=== PATIENT | male | born 1960 | race Caucasian/White ===

== ENCOUNTER → 2022-09-10 12:01 | Outpatient (CLI) | payer MEDICARE, SELFPAY ==
[2022-09-10 18:44] LABS: Eosinophils # 0.1 K/mm3 (0.0-0.4); Eosinophils % 3.8 % (0.1-12.0); Hematocrit 41.4 % (42.0-52.0); Hemoglobin 13.4 g/dL (14.1-18.0); Lymphocytes # 0.7 K/mm3 (0.7-4.5); Lymphocytes % 21.9 % (10-50); Mean Corpuscular HGB Conc 32.4 g/dL (31.8-35.4); Mean Corpuscular Hemoglobin 25.2 pg (27.0-31.2); Mean Corpuscular Volume 77.8 fl (80-94); Mean Platelet Volume 10.7 fl (7.4-10.4); Monocytes # 0.3 K/mm3 (0.1-1.0); Monocytes % 10.2 % (1.7-9.3); Neutrophils # 2.1 K/mm3 (1.8-7.8); Platelet Count 126 K/mm3 (142-424); Red Blood Count 5.32 M/mm3 (4.60-6.20); Red Cell Distribution Width 15.7 % (11.5-17.5); White Blood Count 3.3 K/mm3 (4.8-10.8)
[2022-09-10 19:19] LABS: Erythrocyte Sedimentation Rate 10 mm/hr (0-20)
[2022-09-10 20:03] LABS: Alanine Aminotransferase 38 U/L (12-78); Albumin Level 4.2 g/dl (3.5-5.0); Albumin/Globulin Ratio 1.2 (1.1-1.8); Alkaline Phosphatase 153 U/L (38-126); Anion Gap 18.4 mEq/L (5-15); Aspartate Amino Transferase 54 U/L (17-59); Bilirubin,Total 0.9 mg/dl (0.2-1.3); Blood Urea Nitrogen 12 mg/dl (9-20); Calcium 9.4 mg/dl (8.4-10.2); Carbon Dioxide 29 mmol/L (22.0-30.0); Chloride 98 mmol/L (98-107); Estimated Glomerular Filt Rate 86 ml/min (>60); GFR (African American) 104 ML/MIN (>60); Globulin 3.6 g/dL (1.3-3.2); Glucose 154 mg/dl (74-100); Potassium 4.4 mmoL/L (3.5-5.1); Sodium 141 mmol/L (136-145); Total Protein,Serum 7.8 g/dl (6.3-8.2)
[2022-09-10 20:34] LABS: Thyroid Stimulating Hormone 1.22 uIU/mL (0.465-4.68)
== END ==
PROVIDERS: PCP Family Medicine; Visit Provider Family Medicine
DX: G35 Multiple sclerosis (principal); Z00.00 Encounter for general adult medical examination without abnormal findings; I25.10 Atherosclerotic heart disease of native coronary artery without angina pectoris; Z79.899 Other long term (current) drug therapy
CPT/HCPCS: 80053; 84443; 85025; 85651

== ENCOUNTER → 2022-10-17 23:12 | Outpatient (CLI) | payer MEDICARE, SELFPAY ==
[2022-10-17 18:54] LABS: Chol/HDL Ratio 4.2 (1-3.5); Cholesterol 177 mg/dl (140-200); HDL Cholesterol 42 mg/dl (40-60); Triglycerides 152 mg/dl (30-150); VLDL Cholesterol 30 mg/dL (0-40)
[2022-10-17 19:05] LABS: Direct LDL Cholesterol 94.15 mg/dL (100-129)
[2022-10-17 19:07] LABS: Hemoglobin A1C 6.7 % (4.0-6.0)
== END ==
PROVIDERS: PCP Family Medicine; Visit Provider Family Medicine
DX: I25.10 Atherosclerotic heart disease of native coronary artery without angina pectoris (principal); E11.9 Type 2 diabetes mellitus without complications
CPT/HCPCS: 80061; 83036

== ENCOUNTER → 2023-04-24 10:34 | Outpatient (CLI) | payer MEDICARE, SELFPAY ==
--- NOTE | 2023-04-24 10:35 | CT_ITS ---
FINAL REPORT TECHNIQUE: After the administration of oral and intravenous contrast, axial images were obtained through the abdomen and pelvis by computed tomography. The study was performed with techniques to keep radiation dose as low as reasonably achievable, (ALARA). Individual dose reduction techniques using automated exposure control or adjustment of mA and/or kV according to the patient's size were employed. CLINICAL HISTORY: abdominal pain FINDINGS: Abdomen: The lung bases are clear. The liver has a nodular peripheral margin consistent with cirrhosis. The liver parenchyma is homogeneous. The gallbladder is present. The spleen is enlarged measuring up to 17 cm in craniocaudal dimension. Formation of moderate varices is seen in the upper abdomen. The pancreas demonstrates scattered calcifications in the body of the pancreas. There is a lobular cystic lesion, apparently arising from the tail of the pancreas and contiguous with the splenic hilum. This measures 8.7 x 4.2 cm and is probably related to a pseudocyst. The adrenals and kidneys appear unremarkable. Pelvis: There is a moderate amount of retained stool throughout the colon. The appendix is not visualized. The urinary bladder is unremarkable. There are few small lymph nodes throughout the retroperitoneal and celiac regions which are nonspecific. IMPRESSION: 1. 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 2. Moderate constipation. 3. Changes of chronic pancreatitis with a probable 8.7 cm pseudocyst in the tail of the pancreas. 4. No acute inflammation. Reviewed, Interpreted and Dictated by Naun Biswas MD Transcribed by Vicki Dickinson Authenticated and [facility]
[2023-04-24 11:12] LABS: Blood Urea Nitrogen 14 mg/dl (9-20); Estimated Glomerular Filt Rate 56 ml/min (>60); GFR (African American) 68 ML/MIN (>60)
[2023-04-24] MEDS: SODIUM CHLORIDE 0.9% 10ML SYR (RAD ONLY) 10 ML IV (11:40)
[2023-04-24] MEDS: IOPAMIDOL-370 (76%);100ML BOTTLE 75 ML IV (11:40)
[2023-04-25 11:19] LABS: HBsAg Screen Positive (Negative); HCV Ab Non Reactive (Non Reactive); Hep A Ab, IGM Negative (Negative); Hep B Core Ab, IgM Negative (Negative)
== END ==
LOC: RAD 10:35
PROVIDERS: PCP Family Medicine; Visit Provider Surgery
DX: R10.9 Unspecified abdominal pain (principal)
CPT/HCPCS: 36415; 74177; 80074; 82565; 84520; Q9967

== ENCOUNTER 2023-10-01 11:07 | Outpatient (CLI) | payer MEDICARE, SELFPAY ==
[2023-10-01 17:47] LABS: Coronavirus 19, PCR Not Detected (NotDetected); Influenza A, PCR Not Detected (NotDetected); Influenza B, PCR Not Detected (NotDetected)
== END 2023-10-01 23:59 | disposition home or self-care (01) ==
LOC: LAB.DROPOF 10-02 11:09
PROVIDERS: PCP Nurse Practitioner; Visit Provider Nurse Practitioner
DX: J06.9 Acute upper respiratory infection, unspecified (principal); F17.210 Nicotine dependence, cigarettes, uncomplicated
CPT/HCPCS: 87636

== ENCOUNTER 2024-04-12 19:11 | Outpatient (CLI) | payer MEDICARE, SELFPAY ==
[2024-04-12 19:48] LABS: Basophils % 1.1 % (0.1-2.0); Eosinophils # 0.2 K/mm3 (0.0-0.4); Eosinophils % 4.3 % (0.1-12.0); Hematocrit 41.5 % (42.0-52.0); Hemoglobin 13.9 g/dL (14.1-18.0); Lymphocytes % 29.6 % (10-50); Mean Corpuscular HGB Conc 33.6 g/dL (31.8-35.4); Mean Corpuscular Hemoglobin 27.4 pg (27.0-31.2); Mean Corpuscular Volume 81.6 fl (80-94); Mean Platelet Volume 10.5 fl (7.4-10.4); Monocytes # 0.4 K/mm3 (0.1-1.0); Monocytes % 10.5 % (1.7-9.3); Neutrophils # 1.9 K/mm3 (1.8-7.8); Neutrophils % 54.5 % (37.0-80.0); Platelet Count 119 K/mm3 (142-424); Red Blood Count 5.09 M/mm3 (4.60-6.20); White Blood Count 3.5 K/mm3 (4.8-10.8)
[2024-04-12 20:03] LABS: Chloride 104 mmol/L (98-107)
[2024-04-12 20:04] LABS: Albumin Level 4.1 g/dl (3.5-5.0); Potassium 4.4 mmoL/L (3.5-5.1); Sodium 132 mmol/L (136-145)
[2024-04-12 20:06] LABS: Blood Urea Nitrogen 14 mg/dl (9-20); Estimated Glomerular Filt Rate 76 ml/min (>60); GFR (African American) 92 ML/MIN (>60)
[2024-04-12 20:07] LABS: Alanine Aminotransferase 41 U/L (12-78); Albumin/Globulin Ratio 1.3 (1.1-1.8); Alkaline Phosphatase 140 U/L (38-126); Anion Gap 5.4 mEq/L (5-15); Aspartate Amino Transferase 55 U/L (17-59); Bilirubin,Total 0.7 mg/dl (0.2-1.3); Calcium 9.3 mg/dl (8.4-10.2); Carbon Dioxide 27 mmol/L (22.0-30.0); Chol/HDL Ratio 4.6 (1-3.5); Cholesterol 156 mg/dl (140-200); Globulin 3.2 g/dL (1.3-3.2); Glucose 127 mg/dl (74-100); HDL Cholesterol 34 mg/dl (40-60); Total Protein,Serum 7.3 g/dl (6.3-8.2); Triglycerides 171 mg/dl (30-150); VLDL Cholesterol 34 mg/dL (0-40)
[2024-04-12 20:09] LABS: Microalbumin/Creatinine Ratio 3.9
[2024-04-12 20:19] LABS: Creatinine,Urine Random 302 mg/dL (Not Estab.)
[2024-04-12 20:40] LABS: Direct LDL Cholesterol 85.24 mg/dL (100-129)
[2024-04-12 21:01] LABS: Prostate Specific Ag Screen 1.4 ng/ml (0.0-4.0)
[2024-04-13 11:16] LABS: HIV Combo NEGATIVE (Negative)
== END 2024-04-12 23:59 | disposition home or self-care (01) ==
LOC: LAB.DROPOF 19:12
PROVIDERS: PCP Family Medicine; Visit Provider Family Medicine
DX: R73.09 Other abnormal glucose (principal); I25.2 Old myocardial infarction; I49.8 Other specified cardiac arrhythmias; Z12.5 Encounter for screening for malignant neoplasm of prostate
CPT/HCPCS: 80053; 80061; 82043; 82570; 85025; 87389; G0103

== ENCOUNTER 2024-05-21 13:12 | Emergency (ER) | payer MEDICARE, SELFPAY ==
[2024-05-21] VITALS (12 sets, daily range): BP systolic 101–198; BP diastolic 56–92; PULSE 56–68; RESP 13–16; TEMP 36.7–37.1; O2SAT 92–100; BMI 29.7
--- NOTE | 2024-05-21 12:59 | ED_ITS ---
<Statement entered by Digna Borden MD - 05/21/24 15:52> I was consulted by the BRIGHT, and we discussed the complexity of problems being addressed. I approved the treatment and management plan for this patient's care in the emergency department, thus performing a substantive portion of the medical decision making. Digna Borden MD Discharge Plan Disposition Patient Disposition: Home, Self-Care Condition: Good Prescriptions Prescriptions: New pantoprazole [Protonix] 40 mg tablet,delayed release (DR/EC) 40 mg PO DAILY Qty: 30 0RF No Action doxycycline hyclate 100 mg tablet 100 mg PO BID Qty: 20 0RF nystatin 100,000 unit/gram cream 1 applic topical BID Qty: 30 0RF glatiramer [Glatopa] 40 mg/mL syringe 20 mg SQ .COMPLEX Rx Instructions: 20 mg subcutaneously Three times WEEKLY; gabapentin [Neurontin] 600 mg tablet 600 mg PO TID Qty: 90 0RF aspirin 81 mg tablet,delayed release (DR/EC) 81 mg PO DAILY Qty: 100 3RF metoprolol succinate 50 mg tablet extended release 24 hr See Rx Instructions .ROUTE .COMPLEX Qty: 90 3RF Dose Instruction: TAKE 1 TABLET EVERY DAY Rx Instructions: TAKE 1 TABLET EVERY DAY tizanidine 2 mg tablet See Rx Instructions .ROUTE .COMPLEX Qty: 60 11RF Dose Instruction: TAKE 1 TABLET TWICE DAILY NEEDED FOR MUSCLE SPASTICITY Rx Instructions: TAKE 1 TABLET TWICE DAILY NEEDED FOR MUSCLE SPASTICITY pantoprazole 40 mg tablet,delayed release (DR/EC) See Rx Instructions .ROUTE .COMPLEX Qty: 60 10RF Dose Instruction: TAKE 1 TABLET EVERY DAY Rx Instructions: TAKE 1 TABLET EVERY DAY nitroglycerin 0.4 mg tablet, sublingual See Rx Instructions .ROUTE .COMPLEX Qty: 100 10RF Dose Instruction: PLACE 1 TABLET UNDER THE TONGUE EVERY 5 MINUTES NEEDED FOR CHEST PAIN. DO NOT EXCEED 3 DOSES PER EPISODE Rx Instructions: PLACE 1 TABLET UNDER THE TONGUE EVERY 5 MINUTES NEEDED FOR CHEST PAIN. DO NOT EXCEED 3 DOSES PER EPISODE Referrals Follow up/Referrals: John Hernandes II, MD [Staff Physician] - See instructions ProviderChencho MD [Referring] - See instructions Sean Rivera MD [Staff Physician] - See instructions Activity Restrictions/Add. Instructions Additional Instructions/Restrictions: Follow-up with your PCP if you have new worsening or unchanged signs or symptoms. I referred you to both cardiology and gastroenterology for further workup. I have sent a medication in to help with your stomach issues please take daily. Return to ER for any worsening signs or symptoms as needed. Clinical Impressions Clinical Impression: Chest pain Print Language Print Language: Czech Discharge ED Provider: Shelly Singleton HPI <MEGHNA Hamilton - Last Filed: 05/21/24 17:24> General Chief Complaint: Chest Pain Stated Complaint: CHEST PAIN Time Seen by Provider: 05/21/24 13:18 History of Present Illness HPI narrative: Patient presents for evaluation of chest pain. Patient reports that his chest pain began approximately around noon today. He does have a past medical history of cardiovascular disease status post stents status post ME but has not seen a filling operator in a very long time. He did have nitroglycerin at home and he took 3 of them prior to EMS arrival without relief. Patient states that it is in the center of his chest that does not radiate there is no aggravating or relieving factors. He denies diaphoresis headache dysphagia shortness of breath fever chills hemoptysis hematochezia melena nausea vomiting diarrhea. Patient does not drink, does not take [id number] NSAIDs routinely. He has not been recently ill or had sick contacts Related Data Home Medications ?Medication ?Instructions ?Recorded ?Confirmed glatiramer 40 mg/mL subcutaneous 20 mg SQ .COMPLEX MS 04/10/22 05/12/24 syringe (Glatopa) Previous Rx's ?Medication ?Instructions ?Recorded gabapentin 600 mg tablet 600 mg PO TID #90 tabs 05/15/22 (Neurontin) aspirin 81 mg tablet,delayed 81 mg PO DAILY #100 tabs 08/28/23 release metoprolol succinate 50 mg See Rx Instructions .Route 12/30/23 tablet,extended release 24 hr .COMPLEX #90 tabs tizanidine 2 mg tablet See Rx Instructions .Route 01/08/24 .COMPLEX #60 tabs pantoprazole 40 mg tablet,delayed See Rx Instructions .Route 02/26/24 release .COMPLEX #60 tabs nitroglycerin 0.4 mg sublingual See Rx Instructions .Route 03/22/24 tablet .COMPLEX #100 tabs doxycycline hyclate 100 mg tablet 100 mg PO BID #20 tabs 05/12/24 nystatin 100,000 unit/gram topical 1 applic topical BID #30 grams 05/12/24 cream pantoprazole 40 mg tablet,delayed 40 mg PO DAILY #30 tabs 05/21/24 release (Protonix) Allergies Allergy/AdvReac Type Severity Reaction Status Date / Time No Known Allergies Allergy Verified 05/12/24 13:18 PFSH <MEGHNA Hamilton - Last Filed: 05/21/24 17:24> PFS Disclaimer: The information contained in this section may have been updated after the patient was seen, as this information can be updated by other users. Medical History Ventricular bigeminy Confirmed on EKG Carotid stenosis, bilateral Umbilical hernia Cellulitis of hand, right Nicotine dependence, cigarettes, uncomplicated Myocardial infarct, old CAD (coronary artery disease) Macular degeneration of left eye Multiple sclerosis Surgical History History of colonoscopy History of percutaneous coronary intervention History of appendectomy Family History Other Cancer Heart attack Social History Smoking Status: Former smoker alcohol intake: former substance use type: denies use current occupational status: disabled Travel in the last 8 weeks: None <MEGHNA Hamilton - Last Filed: 05/21/24 17:24> ROS Obtained: Yes Systems reviewed as appropriate & no additional complaints except as documented Physical Exam <MEGHNA Hamilton - Last Filed: 05/21/24 17:24> General General appearance: alert and in no apparent distress Respiratory Respiratory exam: Present normal lung sounds bilaterally Cardiovascular Cardiovascular exam: Present regular rate Neurological Exam Neurological exam: Present alert and oriented X3 HEART Score <MEGHNA Hamilton - Last Filed: 05/21/24 17:24> HEART Score HEART Score assessment performed?: Yes History (anamnesis): Slightly suspicious ECG: Non-specific disturbance Age: 45-65 years Risk factors: Atherosclerosis history Troponin: </= normal limit HEART Score: 4 <Digna Borden MD - Last Filed: 05/21/24 15:53> HEART Score HEART Score: 4 <Shelly Singleton DO - Last Filed: 05/21/24 22:59> HEART Score HEART Score: 4 Critical Care <Digna Borden MD - Last Filed: 05/21/24 15:53> Critical Care Time Critical Care Time: No Medical Decision Making <MEGHNA Hamilton - Last Filed: 05/21/24 17:24> Medical Records Medical records reviewed: Yes I reviewed the patient's medical records. [place] Inquiry Pt receiving controlled substance: No Vital Signs Vital Signs: 05/21/24 13:16 05/21/24 13:19 05/21/24 13:26 Temperature 98.7 F Temperature Source Oral Pulse Rate 64 Pulse Rate [Right Radial] 64 Respiratory Rate 13 14 Blood Pressure 128/92 H Blood Pressure [Right Arm] 128/92 H Blood Pressure Mean Blood Pressure Mean [Right Arm] 104 Blood Pressure Source [Right Arm] Automatic Cuff 02 Sat by Pulse Oximetry 96 Oxygen Delivery Method Room Air 05/21/24 13:31 05/21/24 14:01 05/21/24 14:30 Temperature Temperature Source Pulse Rate 58 L 66 Pulse Rate [Right Radial] Respiratory Rate 15 Blood Pressure 131/69 118/73 134/85 Blood Pressure [Right Arm] Blood Pressure Mean Blood Pressure Mean [Right Arm] Blood Pressure Source [Right Arm] 02 Sat by Pulse Oximetry 100 99 Oxygen Delivery Method Room Air 05/21/24 14:59 05/21/24 15:12 05/21/24 16:01 Temperature Temperature Source Pulse Rate 60 63 63 Pulse Rate [Right Radial] Respiratory Rate Blood Pressure 131/66 126/70 114/62 Blood Pressure [Right Arm] Blood Pressure Mean 79 Blood Pressure Mean [Right Arm] Blood Pressure Source [Right Arm] 02 Sat by Pulse Oximetry 94 L 92 L 99 Oxygen Delivery Method Room Air Room Air 05/21/24 16:31 05/21/24 17:29 05/21/24 17:32 Temperature 98.2 F 98.0 F Temperature Source Pulse Rate 65 68 56 L Pulse Rate [Right Radial] Respiratory Rate 16 16 Blood Pressure 101/63 L 198/56 H 119/68 Blood Pressure [Right Arm] Blood Pressure Mean 75 Blood Pressure Mean [Right Arm] Blood Pressure Source [Right Arm] 02 Sat by Pulse Oximetry 97 Oxygen Delivery Method Room Air Lab Data Lab results reviewed: Yes I reviewed the patient's lab results. Labs: Lab Results 05/21/24 13:15: WBC 3.6 L, RBC 4.81, Hgb 12.8 L, Hct 40.3 L, MCV 83.8, MCH 26.6 L, MCHC 31.8, RDW 15.6, Plt Count 114 L, MPV 12.0 H, Neut % (Auto) 61.1, Lymph % (Auto) 20.6, [place] % (Auto) 12.5 H, Eos % (Auto) 4.4, Baso % (Auto) 0.8, Neut # (Auto) 2.2, Lymph # (Auto) 0.7, [place] # (Auto) 0.5, Eos # (Auto) 0.2, Baso # (Auto) 0.0, PT 12.4 H, INR 1.15 H, D-Dimer 0.38, Sodium 139, Potassium 4.3, Chloride 104, Carbon Dioxide 27, Anion Gap 12.3, BUN 12, Creatinine 1.10, Estimated Creat Clear 85, Estimated GFR 68, Est GFR ( Amer) 82, Glucose 105 H, Calcium 8.9, Magnesium 1.4 L, Total Bilirubin 0.8, AST 45, ALT 29, A lkaline Phosphatase 150 H, Troponin I < 0.01, NT-Pro-B Natriuret Pep < 20.0, Total Protein 6.8, Albumin 3.6, Globulin 3.2, Albumin/Globulin Ratio 1.1, Lipase 129, Procalcitonin 0.058 05/21/24 13:24: SARS-CoV-2 (PCR) Not detected, Influenza A Untype (PCR) Not detected, Influenza Type B (PCR) Not detected 05/21/24 13:30: Urine Color Shelly, Urine Appearance Clear, Urine pH 6.0, Ur Specific [place] >= 1.030, Urine Protein Negative, Urine Glucose (UA) Trace, Urine Ketones Negative, Urine Blood Negative, Urine Nitrate Negative, Urine Bilirubin 1+ A, Urine Urobilinogen 0.2, Ur Leukocyte Esterase Negative, Urine RBC Occasional, Urine WBC 3-5, Ur Squamous Epith Cells Occasional, Urine Bacteria 1+, Urine Mucus 2+ 05/21/24 16:12: Troponin I < 0.01 05/21/24 13:15 05/21/24 13:15 Response Orders (Tests/Meds): ED MEDICATIONS Discontinued Medications Generic Name Dose Route Start Last Admin Trade Name Freq PRN Reason Stop Dose Admin Acetaminophen 1,000 mg 05/21/24 13:18 05/21/24 13:33 Acetaminophen 1,000mg/100ml Vial IV 05/21/24 13:19 1,000 mg ONCE ONE Administration Belladonna Alkaloids 60 ml 05/21/24 13:18 05/21/24 13:33 Belladonna Alkaloids 60 Ml Ml PO 05/21/24 13:19 60 ml ONCE ONE Administration Ketorolac Tromethamine 15 mg 05/21/24 13:18 05/21/24 13:32 Ketorolac 30mg/Ml Vial IV 05/21/24 13:19 15 mg ONCE ONE Administration Pantoprazole Sodium 40 mg 05/21/24 14:23 05/21/24 14:30 Pantoprazole 40mg Tablet PO 05/21/24 14:24 40 mg ONCE ONE Administration ORDERS Category Date Time Status Chest XR 2 view (NOT portable) [XR chest 2V] Stat Exams 05/21/24 13:18 Completed BNP [NT Pro Brain Natriuretic Pep.] Stat Lab 05/21/24 13:15 Completed CBC w/Auto Diff [Complete Blood Count Auto Diff] Stat Lab 05/21/24 13:15 Completed CMP [Comprehensive Metabolic Panel] Stat Lab 05/21/24 13:15 Completed D-Dimer Stat Lab 05/21/24 13:15 Completed INR [Prothrombin Time INR] Stat Lab 05/21/24 13:15 Completed Lipase Stat Lab 05/21/24 13:15 Completed Magnesium Stat Lab 05/21/24 13:15 Completed Procalcitonin Stat Lab 05/21/24 13:15 Completed Rapid PCR Covid and Flu A/B Stat Lab 05/21/24 13:24 Completed Trop I [Troponin I] Stat Lab 05/21/24 13:15 Completed Troponin I Q3H Lab 05/21/24 16:12 Completed UA [Urinalysis and Microscopic] Stat Lab 05/21/24 13:30 Completed MDM Narrative Medical Decision Narrative: In summary patient is a 64-year-old male who presents to the emergency department for evaluation of chest pain. Patient is hemodynamically stable with a blood pressure 128/92 heart rate of 70 with normal sinus rhythm on the bedside monitor breathing 13 times a minute satting at 95% on room air upon arrival, afebrile. Physical exam reveals normal breath sounds with no adventitious sounds, no increased work of breathing, normal heart sounds without murmurs gallops rubs or thrills, no reproducible chest pain on palpation, abdomen is soft with tenderness at the umbilicus at his known umbilical hernia but there is no palpable bowel loop currently, no rebound or guarding or rigidity normal bowel sounds.. Differential diagnosis includes ACS versus pneumonia versus gastrointestinal cause versus pancreatitis etc. Patient does still have his gallbladder but his appendix is removed.. Initial workup will be conducted with hematologic labs urinalysis plain film chest x-ray twelve-lead EKG. Initial interventions include Tylenol Toradol GI cocktail. Initial workup reviewed by me and his hematologic labs are nonactionable with a normal white count with no neutrophilic shift magnesium 1.4 which will be repleted normal bilirubin and transaminases and alk phos of 150 and undetectable troponin and NT proBNP that is also negative lipase of 129 procalcitonin of 0.058 bland urinalysis with no blood. Upon repeat evaluation [patient had acceptable resolution of symptoms, had persistent pain for which additional interventions were conducted (describe interventions), tolerated p.o., was ambulatory, etc.]. Given this the patient was placed in observation status at 1400. Medical necessity for observational status is serial troponins. The patient was provided serial reevaluations continuous cardiac monitoring pulse oximetry while awaiting results. Shows that his troponin remains undetectable. All of these results we have essentially ruled out any cardiac cause and given the fact that he had great response to GI cocktail with complete resolution of his pain he is appropriate discharge referral to both cardiology and gastroenterology for further workup. Total time in observation was 3 hours and 15 minutes. <Digna Borden MD - Last Filed: 05/21/24 15:53> Vital Signs Vital Signs: 05/21/24 13:16 05/21/24 13:19 05/21/24 13:26 Temperature 98.7 F Temperature Source Oral Pulse Rate 64 Pulse Rate [Right Radial] 64 Respiratory Rate 13 14 Blood Pressure 128/92 H Blood Pressure [Right Arm] 128/92 H Blood Pressure Mean Blood Pressure Mean [Right Arm] 104 Blood Pressure Source [Right Arm] Automatic Cuff 02 Sat by Pulse Oximetry 96 Oxygen Delivery Method Room Air 05/21/24 13:31 05/21/24 14:01 05/21/24 14:30 Temperature Temperature Source Pulse Rate 58 L 66 Pulse Rate [Right Radial] Respiratory Rate 15 Blood Pressure 131/69 118/73 134/85 Blood Pressure [Right Arm] Blood Pressure Mean Blood Pressure Mean [Right Arm] Blood Pressure Source [Right Arm] 02 Sat by Pulse Oximetry 100 99 Oxygen Delivery Method Room Air 05/21/24 14:59 05/21/24 15:12 05/21/24 16:01 Temperature Temperature Source Pulse Rate 60 63 63 Pulse Rate [Right Radial] Respiratory Rate Blood Pressure 131/66 126/70 114/62 Blood Pressure [Right Arm] Blood Pressure Mean 79 Blood Pressure Mean [Right Arm] Blood Pressure Source [Right Arm] 02 Sat by Pulse Oximetry 94 L 92 L 99 Oxygen Delivery Method Room Air Room Air 05/21/24 16:31 05/21/24 17:29 05/21/24 17:32 Temperature 98.2 F 98.0 F Temperature Source Pulse Rate 65 68 56 L Pulse Rate [Right Radial] Respiratory Rate 16 16 Blood Pressure 101/63 L 198/56 H 119/68 Blood Pressure [Right Arm] Blood Pressure Mean 75 Blood Pressure Mean [Right Arm] Blood Pressure Source [Right Arm] 02 Sat by Pulse Oximetry 97 Oxygen Delivery Method Room Air Lab Data Labs: Lab Results 05/21/24 13:15: WBC 3.6 L, RBC 4.81, Hgb 12.8 L, Hct 40.3 L, MCV 83.8, MCH 26.6 L, MCHC 31.8, RDW 15.6, Plt Count 114 L, MPV 12.0 H, Neut % (Auto) 61.1, Lymph % (Auto) 20.6, [place] % (Auto) 12.5 H, Eos % (Auto) 4.4, Baso % (Auto) 0.8, Neut # (Auto) 2.2, Lymph # (Auto) 0.7, [place] # (Auto) 0.5, Eos # (Auto) 0.2, Baso # (Auto) 0.0, PT 12.4 H, INR 1.15 H, D-Dimer 0.38, Sodium 139, Potassium 4.3, Chloride 104, Carbon Dioxide 27, Anion Gap 12.3, BUN 12, Creatinine 1.10, Estimated Creat Clear 85, Estimated GFR 68, Est GFR ( Amer) 82, Glucose 105 H, Calcium 8.9, Magnesium 1.4 L, Total Bilirubin 0.8, AST 45, ALT 29, A lkaline Phosphatase 150 H, Troponin I < 0.01, NT-Pro-B Natriuret Pep < 20.0, Total Protein 6.8, Albumin 3.6, Globulin 3.2, Albumin/Globulin Ratio 1.1, Lipase 129, Procalcitonin 0.058 05/21/24 13:24: SARS-CoV-2 (PCR) Not detected, Influenza A Untype (PCR) Not detected, Influenza Type B (PCR) Not detected 05/21/24 13:30: Urine Color Shelly, Urine Appearance Clear, Urine pH 6.0, Ur Specific [place] >= 1.030, Urine Protein Negative, Urine Glucose (UA) Trace, Urine Ketones Negative, Urine Blood Negative, Urine Nitrate Negative, Urine Bilirubin 1+ A, Urine Urobilinogen 0.2, Ur Leukocyte Esterase Negative, Urine RBC Occasional, Urine WBC 3-5, Ur Squamous Epith Cells Occasional, Urine Bacteria 1+, Urine Mucus 2+ 05/21/24 16:12: Troponin I < 0.01 Response Orders (Tests/Meds): ED MEDICATIONS Discontinued Medications Generic Name Dose Route Start Last Admin Trade Name Freq PRN Reason Stop Dose Admin Acetaminophen 1,000 mg 05/21/24 13:18 05/21/24 13:33 Acetaminophen 1,000mg/100ml Vial IV 05/21/24 13:19 1,000 mg ONCE ONE Administration Belladonna Alkaloids 60 ml 05/21/24 13:18 05/21/24 13:33 Belladonna Alkaloids 60 Ml Ml PO 05/21/24 13:19 60 ml ONCE ONE Administration Ketorolac Tromethamine 15 mg 05/21/24 13:18 05/21/24 13:32 Ketorolac 30mg/Ml Vial IV 05/21/24 13:19 15 mg ONCE ONE Administration Pantoprazole Sodium 40 mg 05/21/24 14:23 05/21/24 14:30 Pantoprazole 40mg Tablet PO 05/21/24 14:24 40 mg ONCE ONE Administration ORDERS Category Date Time Status Chest XR 2 view (NOT portable) [XR chest 2V] Stat Exams 05/21/24 13:18 Completed BNP [NT Pro Brain Natriuretic Pep.] Stat Lab 05/21/24 13:15 Completed CBC w/Auto Diff [Complete Blood Count Auto Diff] Stat Lab 05/21/24 13:15 Completed CMP [Comprehensive Metabolic Panel] Stat Lab 05/21/24 13:15 Completed D-Dimer Stat Lab 05/21/24 13:15 Completed INR [Prothrombin Time INR] Stat Lab 05/21/24 13:15 Completed Lipase Stat Lab 05/21/24 13:15 Completed Magnesium Stat Lab 05/21/24 13:15 Completed Procalcitonin Stat Lab 05/21/24 13:15 Completed Rapid PCR Covid and Flu A/B Stat Lab 05/21/24 13:24 Completed Trop I [Troponin I] Stat Lab 05/21/24 13:15 Completed Troponin I Q3H Lab 05/21/24 16:12 Completed UA [Urinalysis and Microscopic] Stat Lab 05/21/24 13:30 Completed <Shelly N Mani, DO - Last Filed: 05/21/24 22:59> Vital Signs Vital Signs: 05/21/24 13:16 05/21/24 13:19 05/21/24 13:26 Temperature 98.7 F Temperature Source Oral Pulse Rate 64 Pulse Rate [Right Radial] 64 Respiratory Rate 13 14 Blood Pressure 128/92 H Blood Pressure [Right Arm] 128/92 H Blood Pressure Mean Blood Pressure Mean [Right Arm] 104 Blood Pressure Source [Right Arm] Automatic Cuff 02 Sat by Pulse Oximetry 96 Oxygen Delivery Method Room Air 05/21/24 13:31 05/21/24 14:01 05/21/24 14:30 Temperature Temperature Source Pulse Rate 58 L 66 Pulse Rate [Right Radial] Respiratory Rate 15 Blood Pressure 131/69 118/73 134/85 Blood Pressure [Right Arm] Blood Pressure Mean Blood Pressure Mean [Right Arm] Blood Pressure Source [Right Arm] 02 Sat by Pulse Oximetry 100 99 Oxygen Delivery Method Room Air 05/21/24 14:59 05/21/24 15:12 05/21/24 16:01 Temperature Temperature Source Pulse Rate 60 63 63 Pulse Rate [Right Radial] Respiratory Rate Blood Pressure 131/66 126/70 114/62 Blood Pressure [Right Arm] Blood Pressure Mean 79 Blood Pressure Mean [Right Arm] Blood Pressure Source [Right Arm] 02 Sat by Pulse Oximetry 94 L 92 L 99 Oxygen Delivery Method Room Air Room Air 05/21/24 16:31 05/21/24 17:29 05/21/24 17:32 Temperature 98.2 F 98.0 F Temperature Source Pulse Rate 65 68 56 L Pulse Rate [Right Radial] Respiratory Rate 16 16 Blood Pressure 101/63 L 198/56 H 119/68 Blood Pressure [Right Arm] Blood Pressure Mean 75 Blood Pressure Mean [Right Arm] Blood Pressure Source [Right Arm] 02 Sat by Pulse Oximetry 97 Oxygen Delivery Method Room Air Lab Data Labs: Lab Results 05/21/24 13:15: WBC 3.6 L, RBC 4.81, Hgb 12.8 L, Hct 40.3 L, MCV 83.8, MCH 26.6 L, MCHC 31.8, RDW 15.6, Plt Count 114 L, MPV 12.0 H, Neut % (Auto) 61.1, Lymph % (Auto) 20.6, [place] % (Auto) 12.5 H, Eos % (Auto) 4.4, Baso % (Auto) 0.8, Neut # (Auto) 2.2, Lymph # (Auto) 0.7, [place] # (Auto) 0.5, Eos # (Auto) 0.2, Baso # (Auto) 0.0, PT 12.4 H, INR 1.15 H, D-Dimer 0.38, Sodium 139, Potassium 4.3, Chloride 104, Carbon Dioxide 27, Anion Gap 12.3, BUN 12, Creatinine 1.10, Estimated Creat Clear 85, Estimated GFR 68, Est GFR ( Amer) 82, Glucose 105 H, Calcium 8.9, Magnesium 1.4 L, Total Bilirubin 0.8, AST 45, ALT 29, A lkaline Phosphatase 150 H, Troponin I < 0.01, NT-Pro-B Natriuret Pep < 20.0, Total Protein 6.8, Albumin 3.6, Globulin 3.2, Albumin/Globulin Ratio 1.1, Lipase 129, Procalcitonin 0.058 05/21/24 13:24: SARS-CoV-2 (PCR) Not detected, Influenza A Untype (PCR) Not detected, Influenza Type B (PCR) Not detected 05/21/24 13:30: Urine Color Shelly, Urine Appearance Clear, Urine pH 6.0, Ur Specific [place] >= 1.030, Urine Protein Negative, Urine Glucose (UA) Trace, Urine Ketones Negative, Urine Blood Negative, Urine Nitrate Negative, Urine Bilirubin 1+ A, Urine Urobilinogen 0.2, Ur Leukocyte Esterase Negative, Urine RBC Occasional, Urine WBC 3-5, Ur Squamous Epith Cells Occasional, Urine Bacteria 1+, Urine Mucus 2+ 05/21/24 16:12: Troponin I < 0.01 Response Orders (Tests/Meds): ED MEDICATIONS Discontinued Medications Generic Name Dose Route Start Last Admin Trade Name Freq PRN Reason Stop Dose Admin Acetaminophen 1,000 mg 05/21/24 13:18 05/21/24 13:33 Acetaminophen 1,000mg/100ml Vial IV 05/21/24 13:19 1,000 mg ONCE ONE Administration Belladonna Alkaloids 60 ml 05/21/24 13:18 05/21/24 13:33 Belladonna Alkaloids 60 Ml Ml PO 05/21/24 13:19 60 ml ONCE ONE Administration Ketorolac Tromethamine 15 mg 05/21/24 13:18 05/21/24 13:32 Ketorolac 30mg/Ml Vial IV 05/21/24 13:19 15 mg ONCE ONE Administration Pantoprazole Sodium 40 mg 05/21/24 14:23 05/21/24 14:30 Pantoprazole 40mg Tablet PO 05/21/24 14:24 40 mg ONCE ONE Administration ORDERS Category Date Time Status Chest XR 2 view (NOT portable) [XR chest 2V] Stat Exams 05/21/24 13:18 Completed BNP [NT Pro Brain Natriuretic Pep.] Stat Lab 05/21/24 13:15 Completed CBC w/Auto Diff [Complete Blood Count Auto Diff] Stat Lab 05/21/24 13:15 Completed CMP [Comprehensive Metabolic Panel] Stat Lab 05/21/24 13:15 Completed D-Dimer Stat Lab 05/21/24 13:15 Completed INR [Prothrombin Time INR] Stat Lab 05/21/24 13:15 Completed Lipase Stat Lab 05/21/24 13:15 Completed Magnesium Stat Lab 05/21/24 13:15 Completed Procalcitonin Stat Lab 05/21/24 13:15 Completed Rapid PCR Covid and Flu A/B Stat Lab 05/21/24 13:24 Completed Trop I [Troponin I] Stat Lab 05/21/24 13:15 Completed Troponin I Q3H Lab 05/21/24 16:12 Completed UA [Urinalysis and Microscopic] Stat Lab 05/21/24 13:30 Completed MDM Narrative Medical Decision Narrative: In summary patient is a 64-year-old male who presents to the emergency department for evaluation of chest pain. Patient is hemodynamically stable with a blood pressure 128/92 heart rate of 70 with normal sinus rhythm on the bedside monitor breathing 13 times a minute satting at 95% on room air upon arrival, afebrile. Physical exam reveals normal breath sounds with no adventitious sounds, no increased work of breathing, normal heart sounds without murmurs gallops rubs or thrills, no reproducible chest pain on palpation, abdomen is soft with tenderness at the umbilicus at his known umbilical hernia but there is no palpable bowel loop currently, no rebound or guarding or rigidity normal bowel sounds.. Differential diagnosis includes ACS versus pneumonia versus gastrointestinal cause versus pancreatitis etc. Patient does still have his gallbladder but his appendix is removed.. Initial workup will be conducted with hematologic labs urinalysis plain film chest x-ray twelve-lead EKG. Initial interventions include Tylenol Toradol GI cocktail. Initial workup reviewed by me and his hematologic labs are nonactionable with a normal white count with no neutrophilic shift magnesium 1.4 which will be repleted normal bilirubin and transaminases and alk phos of 150 and undetectable troponin and NT proBNP that is also negative lipase of 129 procalcitonin of 0.058 bland urinalysis with no blood. Upon repeat evaluation [patient had acceptable resolution of symptoms, had persistent pain for which additional interventions were conducted Given this the patient was placed in observation status at 1400. Medical necessity for observational status is serial troponins. The patient was provided serial reevaluations continuous cardiac monitoring pulse oximetry while awaiting results. Shows that his troponin remains undetectable. All of these results we have essentially ruled out any cardiac cause and given the fact that he had great response to GI cocktail with complete resolution of his pain he is appropriate discharge referral to both cardiology and gastroenterology for further workup. Total time in observation was 3 hours and 15 minutes. DO Mani: I assumed care of the patient at 1530 at time of departure previous provider. I was consulted by the RBIGHT, and we discussed the complexity of the problems being addressed. I approved the treatment and management plan for this patient's care in the emergency department, thus performing a substantive portion of the medical decision making. Shelly Singleton DO
--- NOTE | 2024-05-21 13:14 | ECG_ITS ---
APPROVED REPORT Exam: Resting ECG HR:67 bpm ECG Measurements Heart Rate 67 AXES OK 154 P 59 QRSd 108 QRS 36 QT 427 T 16 QTc 442 Conclusion SINUS RHYTHM POSSIBLE LEFT ATRIAL ENLARGEMENT [-0.1mV P-WAVE IN V1/V2] INFERIOR MYOCARDIAL INFARCTION , PROBABLY OLD [40+ ms Q WAVE AND/OR ST/T ABNORMALITY IN II/aVF] ABNORMAL ECG Electronically signed by : CHRISTEL MYRICK, 05/22/2024 15:44:20
--- NOTE | 2024-05-21 13:18 | XR_ITS ---
FINAL REPORT TECHNIQUE: Chest PA & Lateral CLINICAL HISTORY: Chest pain COMPARISON: None FINDINGS: 2 views of the chest were performed. The heart size is normal. Overlying leads are noted. The mediastinum is within normal limits. There is no acute cardiopulmonary process. There are no pleural effusions. There is no pneumothorax. The bony thorax appears intact. IMPRESSION: No acute cardiopulmonary process. Reviewed, Interpreted and Dictated by Naun Biswas MD Transcribed by Pearl Rasheed Authenticated and [facility]
--- NOTE | 2024-05-21 13:19 | PC.NURSE ---
IV started while enroute by EMS, Blood drawn from IV and sent to lab by jad
[2024-05-21 13:29] LABS: Basophils % 0.8 % (0.1-2.0); Eosinophils # 0.2 K/mm3 (0.0-0.4); Eosinophils % 4.4 % (0.1-12.0); Hematocrit 40.3 % (42.0-52.0); Hemoglobin 12.8 g/dL (14.1-18.0); Lymphocytes # 0.7 K/mm3 (0.7-4.5); Lymphocytes % 20.6 % (10-50); Mean Corpuscular HGB Conc 31.8 g/dL (31.8-35.4); Mean Corpuscular Hemoglobin 26.6 pg (27.0-31.2); Mean Corpuscular Volume 83.8 fl (80-94); Monocytes # 0.5 K/mm3 (0.1-1.0); Monocytes % 12.5 % (1.7-9.3); Neutrophils # 2.2 K/mm3 (1.8-7.8); Neutrophils % 61.1 % (37.0-80.0); Platelet Count 114 K/mm3 (142-424); Red Blood Count 4.81 M/mm3 (4.60-6.20); Red Cell Distribution Width 15.6 % (11.5-17.5); White Blood Count 3.6 K/mm3 (4.8-10.8)
[2024-05-21 13:30] LABS: Coronavirus 19, PCR Not Detected (NotDetected); Influenza A, PCR Not Detected (NotDetected); Influenza B, PCR Not Detected (NotDetected)
[2024-05-21] MEDS: KETOROLAC 30MG/ML VIAL 15 MG IV (13:32)
[2024-05-21] MEDS: BELLADONNA ALKALOIDS 60 ML ML PO (13:33)
[2024-05-21] MEDS: ACETAMINOPHEN 1,000MG/100ML VIAL 1000 MG IV (13:33)
[2024-05-21 13:36] LABS: Microscopic, Urine URINE MICROSCOPIC (MICROSCOPIC)
[2024-05-21 13:42] LABS: Appearance,Urine CLEAR (Clear); Blood, Urine Negative (Negative); Color,Urine AMBER (Yellow); Glucose,Urine (UA) TRACE (Negative); Ketones,Urine Negative (Negative); Leukocyte Esterase,Urine Negative (Negative); Nitrate,Urine Negative (Negative); Protein,Urine Negative (Negative); Specific Gravity, Urine >= 1.030 (1.005-1.030); Urobilinogen,Urine 0.2 EU/dl (0.2)
[2024-05-21 13:45] LABS: Alanine Aminotransferase 29 U/L (12-78); Albumin Level 3.6 g/dl (3.5-5.0); Albumin/Globulin Ratio 1.1 (1.1-1.8); Alkaline Phosphatase 150 U/L (38-126); Anion Gap 12.3 mEq/L (5-15); Aspartate Amino Transferase 45 U/L (17-59); Bilirubin,Total 0.8 mg/dl (0.2-1.3); Blood Urea Nitrogen 12 mg/dl (9-20); Calcium 8.9 mg/dl (8.4-10.2); Carbon Dioxide 27 mmol/L (22.0-30.0); Chloride 104 mmol/L (98-107); Creatinine Clearance Estimated 85 mL/min (50-200); Estimated Glomerular Filt Rate 68 ml/min (>60); GFR (African American) 82 ML/MIN (>60); Globulin 3.2 g/dL (1.3-3.2); Glucose 105 mg/dl (74-100); Lipase 129 U/L (23-300); Magnesium 1.4 mg/dl (1.6-2.3); Potassium 4.3 mmoL/L (3.5-5.1); Sodium 139 mmol/L (136-145); Total Protein,Serum 6.8 g/dl (6.3-8.2)
[2024-05-21 13:47] LABS: Bilirubin,Urine 1+ (Negative)
[2024-05-21 13:48] LABS: D-Dimer 0.38 ug/mL (0.0-0.5)
[2024-05-21 13:54] LABS: NT Pro Brain Natriuretic Pep. < 20.0 pg/mL (0-125)
[2024-05-21 14:02] LABS: Procalcitonin 0.058 ng/mL (0.0-2.0)
[2024-05-21 14:05] LABS: Troponin I < 0.01 ng/ml (0.00-0.034)
--- NOTE | 2024-05-21 14:10 | PC.NURSE ---
PT WAS GIVEN A NO OTHER NEEDS AT THIS TIME, SIGNIFICANT OTHER AT BS
[2024-05-21 14:14] LABS: RBC,Urine Occasional #/hpf (0-3)
[2024-05-21 14:15] LABS: Bacteria,Urine 1+ /lpf; Mucus,Urine 2+ /lpf; Squamous Epithelial Cell,Urine Occasional #/hpf (0-5)
[2024-05-21] MEDS: PANTOPRAZOLE 40MG TABLET 40 MG PO (14:30)
[2024-05-21 14:43] LABS: INR 1.15 (0.9-1.1); Prothrombin Time 12.4 seconds (9.2-12.1)
[2024-05-21 17:20] LABS: Troponin I < 0.01 ng/ml (0.00-0.034)
== END 2024-05-21 17:35 | disposition home or self-care (01) ==
PROVIDERS: Physician Assistant; Emergency Provider Emergency Medicine; PCP Family Medicine
DX: R07.9 Chest pain, unspecified (principal)
CPT/HCPCS: 71046; 80053; 81001; 83690; 83735; 83880; 84145; 84484; 85025; 85378; 85610; 87636; 93005; 96374; 96375; 99284; J0131; J1885

== ENCOUNTER 2024-05-27 11:02 | Outpatient (CLI) | payer MEDICARE, SELFPAY ==
--- NOTE | 2024-05-27 11:05 | CT_ITS ---
FINAL REPORT TECHNIQUE: Pre-and postcontrast axial CT images of the abdomen and pelvis were obtained. Coronal reformatted images were also obtained and reviewed .This study was performed with techniques to keep radiation doses as low as reasonably achievable (ALARA). Individualized dose reduction techniques using automated exposure control or adjustment of mA and/or kV according to the patient''''s size were employed. CLINICAL HISTORY: Cirrhosis; Umbilical Hernia COMPARISON: 04/24/2023 FINDINGS: The lung bases are clear. There is moderate coronary artery calcification. The liver has a nodular peripheral margin consistent with cirrhosis. The spleen is significantly enlarged measuring 19.5 cm in craniocaudal dimension. The adrenals are normal. There is cystic lesion in association with the tail of the pancreas extending into the splenic hilum measuring 8.1 x 4.5 cm consistent with pancreatic pseudocyst. Findings are similar to previous. The kidneys enhance appropriately. Precontrast images demonstrate no nephrolithiasis. There is a moderate amount of stool throughout the colon. The appendix is not visualized. The urinary bladder is unremarkable. There is no free fluid or adenopathy. IMPRESSION: Advanced changes of cirrhosis with marked splenomegaly. Pancreatic pseudocyst. Overall, no significant change from previous. Reviewed, Interpreted and Dictated by Naun Biswas MD Transcribed by Sia Ochoa Authenticated and . [facility]
[2024-05-27] MEDS: SODIUM CHLORIDE 0.9% 10ML SYR (RAD ONLY) 10 ML IV (11:49)
[2024-05-27] MEDS: IOPAMIDOL-370 (76%);100ML BOTTLE 75 ML IV (11:49)
== END 2024-05-27 23:59 | disposition home or self-care (01) ==
LOC: RAD 11:05
PROVIDERS: PCP Family Medicine; Visit Provider Family Medicine
DX: K42.9 Umbilical hernia without obstruction or gangrene (principal); K74.60 Unspecified cirrhosis of liver
CPT/HCPCS: 74178; Q9967

== ENCOUNTER 2024-06-11 10:23 | Outpatient (CLI) | payer MEDICARE, SELFPAY ==
--- NOTE | 2024-06-11 10:24 | US_ITS ---
FINAL REPORT CLINICAL HISTORY: Evaluation of the gallbladder and pancreas COMPARISON: None FINDINGS: ULTRASOUND ABDOMEN There is a 1.9 cm hypoechoic focus in the central liver which could represent liver mass or volume averaging of fat within the vani hepatis. There is a mildly sclerotic appearance to the liver. The gallbladder is negative. There is no evidence of biliary ductal dilatation. There is a 14 mm simple cyst in the upper pole of the right kidney. Moderate splenomegaly is noted measuring up to 18.6 cm. There is a nonspecific septated mass in the splenic hilum. No ascites is seen. IMPRESSION: Splenomegaly, likely related to cirrhosis. Cystic mass of the splenic hilum. It is unclear if this is splenic or pancreatic in origin. CT follow-up recommended. Hypoechoic mass or pseudo mass at the vani hepatis. MRI follow-up may be helpful using liver mass protocol. Reviewed, Interpreted and Dictated by Stacy Fabian MD Transcribed by Pearl Rasheed Authenticated and . [facility]
== END 2024-06-11 23:59 | disposition home or self-care (01) ==
LOC: RAD 10:24
PROVIDERS: PCP Family Medicine; Visit Provider Surgery
DX: R16.1 Splenomegaly, not elsewhere classified (principal); R10.9 Unspecified abdominal pain
CPT/HCPCS: 76700

== ENCOUNTER 2024-07-05 10:36 | Outpatient (CLI) | payer MEDICARE, SELFPAY ==
[2024-07-05 11:13] LABS: Ammonia 34 umol/L (9-30)
[2024-07-05 11:19] LABS: Basophils % 1.2 % (0.1-2.0); Eosinophils # 0.1 K/mm3 (0.0-0.4); Eosinophils % 4.2 % (0.1-12.0); Hematocrit 40.8 % (42.0-52.0); Hemoglobin 13.2 g/dL (14.1-18.0); Lymphocytes # 0.7 K/mm3 (0.7-4.5); Lymphocytes % 25.9 % (10-50); Mean Corpuscular HGB Conc 32.4 g/dL (31.8-35.4); Mean Corpuscular Hemoglobin 26.5 pg (27.0-31.2); Mean Corpuscular Volume 81.8 fl (80-94); Mean Platelet Volume 11.8 fl (7.4-10.4); Monocytes # 0.4 K/mm3 (0.1-1.0); Monocytes % 14.3 % (1.7-9.3); Neutrophils # 1.4 K/mm3 (1.8-7.8); Neutrophils % 54.4 % (37.0-80.0); Platelet Count 114 K/mm3 (142-424); Red Blood Count 4.99 M/mm3 (4.60-6.20); Red Cell Distribution Width 14.4 % (11.5-17.5); White Blood Count 2.6 K/mm3 (4.8-10.8)
[2024-07-05 11:33] LABS: Albumin Level 4.2 g/dl (3.5-5.0); Chloride 106 mmol/L (98-107); Potassium 4.5 mmoL/L (3.5-5.1); Sodium 137 mmol/L (136-145)
[2024-07-05 11:35] LABS: Blood Urea Nitrogen 10 mg/dl (9-20); Estimated Glomerular Filt Rate 86 ml/min (>60); GFR (African American) 103 ML/MIN (>60)
[2024-07-05 11:36] LABS: Alanine Aminotransferase 45 U/L (12-78); Albumin/Globulin Ratio 1.4 (1.1-1.8); Alkaline Phosphatase 157 U/L (38-126); Anion Gap 6.5 mEq/L (5-15); Aspartate Amino Transferase 54 U/L (17-59); Bilirubin,Total 0.9 mg/dl (0.2-1.3); Calcium 9.2 mg/dl (8.4-10.2); Carbon Dioxide 29 mmol/L (22.0-30.0); Globulin 3.1 g/dL (1.3-3.2); Glucose 140 mg/dl (74-100); Iron 49 ug/dL (49-181); Lipase 209 U/L (23-300); Total Protein,Serum 7.3 g/dl (6.3-8.2)
[2024-07-05 11:45] LABS: Total Iron Binding Capacity 434 ug/dL (261-462)
[2024-07-05 11:52] LABS: Free T4 (Free Thyroxine) 0.86 ng/dl (0.78-2.19)
[2024-07-05 12:11] LABS: Thyroid Stimulating Hormone 1.92 uIU/mL (0.465-4.68)
[2024-07-05 12:12] LABS: Ferritin 10.2 ng/ml (17.9-464)
[2024-07-05 12:30] LABS: Vitamin B12 866 pg/mL (239-931)
[2024-07-06 09:12] LABS: Hep B Core Ab, Total Positive (Negative)
[2024-07-06 11:12] LABS: AFP, Tumor Marker 2.3 ng/mL (0.0-8.4); CA 19-9 7 U/mL (0-35)
[2024-07-06 12:11] LABS: HBsAg Confirmation Positive (.); HBsAg Screen Confirm. indicated (Negative); HCV Ab Non Reactive (Non Reactive); Hep A Ab, IGM Negative (Negative); Hep B Core Ab, IgM Negative (Negative)
[2024-07-06 16:11] LABS: Actin (Smooth Muscle) Antibody 19 Units (0-19); Angiotensin Converting Enzyme 85 U/L (14-82); Deamidated Gliadin Abs, IgA 7 units (0-19); Deamidated Gliadin Abs, IgG 2 units (0-19); Mitochondrial (M2) Antibody 24.2 Units (0.0-20.0); Tissue Transglutaminase IgA Ab <2 U/mL (0-3); Tissue Transglutaminase IgG Ab 6 U/mL (0-5)
[2024-07-07 06:10] LABS: Endomysial IgA Antibody Negative (Negative)
[2024-07-08 03:36] LABS: ALT (SGPT) P5P 41 IU/L (0-55); AST (SGOT) P5P 50 IU/L (0-40); Alpha 2-Macroglobulins, Qn 353 mg/dL (110-276); Apolipoprotein A-1 127 mg/dL (101-178); Bilirubin, Total 0.4 mg/dL (0.0-1.2); Cholesterol, Total 172 mg/dL (100-199); Fibrosis Score 0.87 (0.00-0.21); GGT 44 IU/L (0-65); Glucose 145 mg/dL (70-99); Haptoglobin <10 mg/dL (32-363); NASH Score 0.74 (0.00-0.25); Steatosis Score 0.43 (0.00-0.40); Triglycerides 98 mg/dL (0-149)
[2024-07-08 09:12] LABS: Reticulin IgA Antibody Negative titer (Neg:<1:2.5)
[2024-07-09 18:10] LABS: Methylmalonic Acid 138 nmol/L (0-378)
[2024-07-12 10:41] LABS: HBsAg Confirmation Positive
[2024-07-15 16:02] LABS: HBV Genotype ND
[2024-07-15 16:05] LABS: HBV IU/mL 30; log10 HBV IU/mL 1.477
== END 2024-07-05 23:59 | disposition home or self-care (01) ==
LOC: LAB 10:37
PROVIDERS: Psychiatry & Neurology Neurology; PCP Family Medicine; Visit Provider Nurse Practitioner Family
DX: K74.60 Unspecified cirrhosis of liver (principal); K76.9 Liver disease, unspecified; R41.89 Other symptoms and signs involving cognitive functions and awareness
CPT/HCPCS: 36415; 80053; 80074; 82105; 82140; 82164; 82172; 82247; 82465; 82607; 82728; 82947; 82977; 83010; 83516; 83540; 83550; 83690; 83883; 83921; 84439; 84443; 84450; 84460; 84478; 85025; 86255; 86256; 86301; 86704; 86803; 87340; 87517

== ENCOUNTER 2024-11-17 12:39 | Outpatient (CLI) | payer MEDICARE, SELFPAY ==
--- OUTSIDE RECORDS SUMMARY | 2024-10-11 13:45 | XMS_ITS | Encounter Summary ---
Author Organization [place] [address] Care Team Providers Care Computer Game Designer Name Role Phone Unavailable Primary Care Provider Unavailabl e Encounter Details Date Type Department Care Team (Latest Contact Info) Description 10/11/2024 1:45 PM EDT - 10/11/2024 1:59 PM EDT Hospital Encounter [facility] [address] [place] [address] Pancytopenia (HCC); Iron deficiency Discharge Disposition: Home or Self Care Social History Tobacco Use Types Packs/Day Years Used Date Smoking Tobacco: Every Day Cigarettes 0.5 30 Smokeless Tobacco: Never Alcohol Use Standard Drinks/Week Comments No 0 (1 standard drink = 0.6 oz pur e alcohol) PHQ-2 Answer Date Recorded PHQ-2 Score 0 10/22/2018 Sex and Gender Information Value Date Recorded Sex Assigned at Not on file Legal Sex Male 7:05 AM EDT Gender Identity Not on file Sexual Orientation Not on file documented as of this encounter Functional Status * Is the person deaf or does he/she have serious difficulty hearing? Answer Date of Assessment Author No 05/08/2017 8:36 AM Carol Casey RMA * Is the person blind or does he/she have serious difficulty seeing even when wearing glasses? Answer Date of Assessment Author No 05/08/2017 8:36 AM Carol Casey RMA * Does this person have serious difficulty walking or climbing stairs? Answer Date of Assessment Author No 05/08/2017 8:36 AM Carol Casey RMA * Does this person have difficulty dressing or bathing? Answer Date of Assessment Author No 05/08/2017 8:36 AM Carol Casey RMPierce * Because of a physical, mental or emotional condition, does this person have difficulty doing errands alone such as visiting a doctor's office or shopping? Answer Date of Assessment Author No 05/08/2017 8:36 AM Carol Casey RANDALL documented as of this encounter Mental Status * Because of a physical, mental or emotional condition, does this person have serious difficulty concentrating, remembering or making decisions? Answer Entry Date Author No 05/08/2017 8:36 AM Carol Casey RANDALL documented in this encounter Medications at Time of Discharge aspirin 325 mg Oral TabletIndications :CAD (coronary artery disease),AMI inferior wall ([facility]),HTN (hypertension),Po st PTCA,Non-STEMI (non-ST elevated myocardial infarction) ([facility]),Dyslipidemi a,Smoker,MS (multiple sclerosis) ([facility]) Take 1 Tab by mouth daily (with breakfast). 100 Tab 3 4 bacitracin Top Ointment Apply topically 2 times daily. 28 g 6 3 DOCOSAHEXANOIC ACID/EPA (FISH OIL ORAL) Take by mouth 3 times daily. docusate sodium (COLACE) 100 mg capsule Take 100 mg by mouth daily as needed. ferrous sulfate 325 mg (65 mg iron) Oral TabletIndications :Other decreased white blood cell (WBC) count,Other iron deficiency anemias Take 1 Tablet by mouth daily. 30 Tablet 5 5 gabapentin (NEURONTIN) 600 mg Oral TabletIndications :Muscle spasticity TAKE 1 TABLET THREE TIMES DAILY 270 Tablet 1 5 GLATOPA 40 mg/mL SubQ SyringeIndication s:MS (multiple sclerosis) ([facility]) INJECT 40MG SUBCUTANEOUSLY 3 TIMES A WEEK 1 Each 4 ibuprofen (ADVIL;MOTRIN) 200 mg tablet Take 200 mg by mouth every 8 hours as needed. metoprolol succinate (TOPROL-XL) 50 mg Oral Tablet Sustained Release 24 hrIndications:Ess ential hypertension,Dysl ipidemia,Smoker TAKE 1 TABLET EVERY DAY 90 Tab 0 multivitamin (THERAGRAN) per tablet Take 1 Tab by mouth daily. nitroGLYCERIN (NITROSTAT) 0.4 mg SL Tablet, SublingualIndicat ions:AMI inferior wall (HCC),Non-STEMI (non-ST elevated myocardial infarction) (HCC),Coronary artery disease involving [place] coronary artery of [place] heart without angina pectoris,Post PTCA,MS (multiple sclerosis) ([facility]),Dyslipidemi a,Smoker,Essentia l hypertension Place 1 Tab under the tongue every 5 minutes as needed for Chest pain (Go to ED if 3rd tab is needed!). 25 Tab 3 0 OMEGA-3S/DHA/EPA/ FISH OIL/D3 (VITAMIN-D + OMEGA-3 ORAL)Indications: AMI inferior wall (HCC),Non-STEMI (non-ST elevated myocardial infarction) (HCC),Essential hypertension,Cuco nary artery disease involving [place] coronary artery of [place] heart without angina pectoris,MS (multiple sclerosis) ([facility]),Dyslipidemi a,Smoker,Post PTCA Take by mouth. pantoprazole (PROTONIX) 40 mg Oral Tablet, Delayed Release (E.C.)Indications :Gastroesophageal reflux disease without esophagitis Take 1 Tab by mouth daily. 90 Tab 0 tiZANidine (ZANAFLEX) 2 mg Oral TabletIndications :Muscle spasm TAKE 1 AND 1/2 TABLETS TWICE DAILY 270 Tab 1 0 albuterol (PROVENTIL HFA;VENTOLIN HFA) 90 mcg/actuation Inhl HFA Aerosol Inhaler Inhale 1-2 Puffs into the lungs every 6 hours as needed for Wheezing. 1 Inhaler 0 5 chlorhexidine (PERIDEX) 0.12 % MM Mouthwash USE 10 ML BY MOUTH 2 TIMES DAILY FOR 24 DAYS. 473 mL 3 documented as of this encounter Discharge Disposition Disposition Code Departure Means Destination Home or Self Care documented in this encounter Plan of Treatment Upcoming Encounters Date Type Department Care Team (Late st Contact Info) Description 01/13/2025 12:20 PM EDT Office Visit [facility] [address] [place] [address] David Chu MD [address] [place] [address] 04/11/2025 1:15 PM EST Appointment [facility] [address] [place] [id number] 04/11/2025 1:30 PM EST Appointment [facility] [address] [place] [address] Rina Mathis, MOLD HOISTER [address] [facility] [place], [place] [id number] documented as of this encounter Goals Goal Patient Goal Type Associated Problems Recent Progress Patient-Stated? Author Blood Pressure < 140/90 Blood Pressure 122/67(2024 2:20 PM EDT) Shakeel Montalvo MD Maintain a healthy diet, exercise regularly and maintain an ideal body weight General No Shakeel Edgar MD Stay Tobacco Free Lifestyle No Shakeel Edgar MD documented as of this encounter Procedures Procedure Name Priority Date/Time Associated Diagnosis Comments IRON+TIBC Routine 10/11/2024 2:17 PM EDT Pancytopenia (HCC) CBC WITH DIFF Routine 10/11/2024 2:17 PM EDT Pancytopenia (HCC) FERRITIN Routine 10/11/2024 2:17 PM EDT Pancytopenia (HCC) Iron deficiency COMPREHENSIVE METABOLIC PANEL Routine 10/11/2024 2:17 PM EDT Pancytopenia (HCC) Iron deficiency documented in this encounter Results * (ABNORMAL) CBC WITH DIFF (10/11/2024 2:17 PM EDT) WBC 3.2(L) 3.7 - 10.3 x10(3)/mcL 10/11/2024 2:23 PM EDT [facility] RBC 5.30 4.60 - 6.10 x10(6)/mcL 10/11/2024 2:23 PM EDT [facility] Hgb 14.8 13.7 - 17.5 g/dL 10/11/2024 2:23 PM EDT [facility] Hct 44.6 40.0 - 51.0 % 10/11/2024 2:23 PM EDT [facility] MCV 84.2 80.0 - 100.0 fL 10/11/2024 2:23 PM EDT [facility] MCH 27.9 26.0 - 34.0 pg 10/11/2024 2:23 PM EDT [facility] MCHC 33.2 30.7 - 35.5 g/dL 10/11/2024 2:23 PM EDT [facility] RDW 16.3(H) <=14.9 % 10/11/2024 2:23 PM EDT [facility] Platelet 108(L) 155 - 369 x10(3)/mcL 10/11/2024 2:23 PM EDT [facility] MPV 10.0 8.8 - 12.5 fL 10/11/2024 2:23 PM EDT [facility] Neut Percent 61.0 % 10/11/2024 2:23 PM EDT [facility] Comment:Neutrophils equals s egs plus bands Imm Gran% 0.0 % 10/11/2024 2:23 PM EDT [facility] Comment:Automated count of m etamyelocytes, myelocytes and promyelocytes. Lymph Percent 22.0 % 10/11/2024 2:23 PM EDT [facility] [place] Percent 13.0 % 10/11/2024 2:23 PM EDT [facility] Eos Percent 3.1 % 10/11/2024 2:23 PM EDT [facility] Baso Percent 0.9 % 10/11/2024 2:23 PM EDT [facility] Neut # 2.0 1.6 - 6.1 x10(3)/mcL 10/11/2024 2:23 PM EDT [facility] Comment:Neutrophils equals s egs plus bands IMMGRAN# 0.0 0.0 - 0.1 x10(3)/mcL 10/11/2024 2:23 PM EDT [facility] Comment:Automated count of m etamyelocytes, myelocytes and promyelocytes. An absolute IG <0.1 is reported as 0.0. Lymph # 0.7(L) 1.2 - 3.9 x10(3)/mcL 10/11/2024 2:23 PM EDT [facility] [place] # 0.4 0.3 - 0.9 x10(3)/mcL 10/11/2024 2:23 PM EDT [facility] Eos# 0.1 0.0 - 0.5 x10(3)/mcL 10/11/2024 2:23 PM EDT [facility] Baso # 0.0 0.0 - 0.1 x10(3)/mcL 10/11/2024 2:23 PM EDT [facility] Blood VENOUS BLOOD / Unknown Venipuncture / Unknown 10/11/2024 2:17 PM EDT 10/11/2024 2:18 PM EDT Feliciano Tierney MD HEMATOLOGY ORDERABLES Final Res ult [address] [address] * IRON+TIBC (10/11/2024 2:17 PM EDT) Iron 99 50 - 170 mcg/dL 10/11/2024 6:55 PM EDT [facility] Transferrin 277 200 - 360 mg/dL 10/11/2024 6:55 PM EDT [facility] Transferrin Saturation 26 20 - 50 % 10/11/2024 6:55 PM EDT [facility] TIBC 388 250 - 400 mcg/dL 10/11/2024 6:55 PM EDT [facility] Blood VENOUS BLOOD / Unknown Venipuncture / Unknown 10/11/2024 2:17 PM EDT 10/11/2024 2:18 PM EDT Feliciano Tierney MD CHEMISTRY ORDERABLES Final Resu lt Performing Organization Address [facility]/ZIP Co de Phone Number [facility] [employer] [address] , [place] [address] * FERRITIN (10/11/2024 2:17 PM EDT) [facility] Ferritin 37 30 - 400 ng/mL 10/11/2024 6:55 PM EDT [facility] Blood VENOUS BLOOD / Unknown Venipuncture / Unknown 10/11/2024 2:17 PM EDT 10/11/2024 2:18 PM EDT Narrative [facility] - 10/11/2024 6:55 PM EDT Ingestion of judith doses of biotin (>5 mg/day) taken within 8 hours of drawing blood sample can interfere with this immunoassay test. Feliciano Tierney MD CHEMISTRY ORDERABLES Final [facility] Performing Organization Address [facility] Co de Phone Number [facility] [employer] [facility] [address] [facility] [address] [place] [address] * (ABNORMAL) COMPREHENSIVE METABOLIC PANEL (10/11/2024 2:17 PM EDT) [facility] Sodium 139 136 - 145 mmol/L 10/11/2024 2:37 PM EDT [facility] Potassium 4.4 3.5 - 5.0 mmol/L 10/11/2024 2:37 PM EDT [facility] Chloride 103 98 - 107 mmol/L 10/11/2024 2:37 PM EDT [facility] Total CO2 27 22 - 29 mmol/L 10/11/2024 2:37 PM EDT [facility] Anion Gap 9 7 - 16 mmol/L 10/11/2024 2:37 PM EDT [facility] Calcium 9.2 8.8 - 10.4 mg/dL 10/11/2024 2:37 PM EDT [facility] Glucose Lvl 123(H) 70 - 99 mg/dL 10/11/2024 2:37 PM EDT [facility] BUN 10 8 - 23 mg/dL 10/11/2024 2:37 PM EDT [facility] Creatinine 1.00 0.67 - 1.30 mg/dL 10/11/2024 2:[address] [facility] Albumin 4.0 3.2 - 4.6 gm/dL 10/11/2024 2:[address] [facility] Total Protein 7.4 6.4 - 8.3 gm/dL 10/11/2024 2:37 PM EDT [facility] Bili Total 0.9 0.2 - 1.4 mg/dL 10/11/2024 2:[address] [facility] ALT 33 <=41 U/L 10/11/2024 2:37 PM EDT [facility] AST 38 <=40 U/L 10/11/2024 2:[address] [facility] Alk Phos 119 40 - 129 U/L 10/11/2024 2:[address] [facility] eGFR (CKD-EPIcr 2020) 85 >=60 mL/min/1.7 3 m2 10/11/2024 2:[address] [facility] Comment:Estimated GFR was ca lculated using the CKD-EPIcr (2020) equation refit without race. The equation is recommended by the [employer] - [place] [employer] Neph[employer] Task Force. Blood VENOUS BLOOD / Unknown Venipuncture / Unknown 10/11/2024 2:17 PM EDT 10/11/2024 2:18 PM EDT us Feliciano Tierney MD CHEMISTRY ORDERABLES Final Resu lt [facility] [address] [place] [address] documented in this encounter Visit Diagnoses Diagnosis Pancytopenia (HCC) Other pancytopenia Iron deficiency Other disorders of iron metabolism documented in this encounter
--- OUTSIDE RECORDS SUMMARY | 2024-10-11 14:00 | XMS_ITS | Encounter Summary ---
Author Organization [place] [address] Care Team Providers Care Cardiac Cath Tech Name Role Phone Unavailable Primary Care Provider Unavailabl e Reason for Visit * Reason Comments Follow-up Encounter Details Date Type Department Care Team (Latest Contact Info) Description 10/11/2024 2:00 PM EDT - 10/11/2024 11:59 PM EDT Hospital Encounter [facility] [address] [facility] [address] [place] [address] Feliciano Tierney MD [address] [place] [id number] Pancytopenia (HCC) (Primary Dx); Iron deficiency Discharge Disposition: Home or Self [...] on file documented as of this encounter Last Filed Vital Signs Vital Sign Reading Time Taken Comments Blood Pressure 122/67 10/11/2024 2:20 PM EDT Pulse 65 10/11/2024 2:20 PM EDT Temperature 36.8 C (98.2 F) 10/11/2024 2:20 PM EDT Respiratory Rate 18 10/11/2024 2:20 PM EDT Oxygen Saturation 98% 10/11/2024 2:20 PM EDT Inhaled Oxygen Concentration - - Weight 87.8 kg (193 lb 9.6 oz) 10/11/2024 2:20 P M EDT Height - - Body Mass Index 30.32 08/09/2024 1:01 PM EDT documented in this encounter Functional Status * Is the [...] 05/08/2017 8:36 AM Carol Casey RMA * Because of a physical, mental or emotional condition, does this person have difficulty doing errands alone such as visiting a doctor's office or shopping? Answer Date of Assessment Author No 05/08/2017 8:36 AM Carol Casey RMA documented as of this encounter Mental Status * Because of a physical, mental or emotional condition, does this person have serious difficulty concentrating, remembering or making decisions? Answer Entry Date Author No 05/08/2017 8:36 AM Carol Casey RMA documented in this encounter Medications at Time of Discharge aspirin 325 mg Oral TabletIndications :CAD (coronary artery disease),AMI inferior wall (HCC),HTN (hypertension),Po st PTCA,Non-STEMI (non-ST elevated myocardial infarction) ([facility]),Dyslipidemi a,Smoker,MS (multiple sclerosis) ([facility]) Take 1 Tab by mouth daily (with [...] 40 mg/mL SubQ SyringeIndication s:MS (multiple sclerosis) ([facility]) INJECT 40MG SUBCUTANEOUSLY 3 TIMES A WEEK [...] mg SL Tablet, SublingualIndicat ions:AMI inferior wall ([facility]),Non-STEMI (non-ST elevated myocardial infarction) ([facility]),Coronary artery disease involving circle coronary artery of circle heart without angina pectoris,Post PTCA,MS (multiple sclerosis) ([facility]),Dyslipidemi a,Smoker,Essentia l hypertension Place 1 Tab under the tongue every 5 minutes as needed for Chest pain (Go to ED if 3rd tab is needed!). 25 Tab 3 0 OMEGA-3S/DHA/EPA/ FISH OIL/D3 (VITAMIN-D + OMEGA-3 ORAL)Indications: AMI inferior wall (HCC),Non-STEMI (non-ST elevated myocardial infarction) ([facility]),Essential hypertension,Cuco nary artery disease involving circle coronary artery of circle heart without angina pectoris,MS (multiple sclerosis) ([facility]),Dyslipidemi a,Smoker,Post PTCA Take by mouth. pantoprazole (PROTONIX) [...] or Self Care documented in this encounter Progress Notes * Feliciano Tierney MD - 10/11/2024 2:00 PM EDT Images from the original note were not included. Patient: Susan Valdez CSN: [id number] Date of : 1960 Age: 64 y.o. Date of Service: 10/11/2024 HEMATOLOGY/ONCOLOGY OFFICE NOTE Primary Care Physician: No primary care provider on file. Primary Hem/Onc: Shabbir Tierney MD Reason for Referral: leukopenia. DIAGNOSIS/TREATMENT HISTORY: Pancytopenia in setting of cirrhosis Iron deficiency anemia found in 2024 CURRENT TREATMENT: Oral iron supplement INTERVAL HISTORY: He is feeling okay today. Overall feeling some better than he was at last visit it seems. He has been taking ferrous sulfate. He says that his diagnosis of cirrhosis was made earlier this year by ultrasound, he sees a GI provider with the last name Steven at [facility] (found Tasha Harris APRN in [facility]) HISTORY: Past Medical History: Diagnosis Date CAD (coronary artery disease) CHF (congestive heart failure) (HCC) COPD (chronic obstructive pulmonary disease) (HCC) Encounter for blood transfusion Heartburn Hyperlipidemia Hypertension MT (myocardial infarction) (HCC) 2005, 2006 Multiple sclerosis (HCC) Pneumonia Prostate disorder enlarged MEDICATIONS: Current Outpatient Medications Medication aspirin 325 mg Oral Tablet bacitracin Top Ointment DOCOSAHEXANOIC ACID/EPA (FISH OIL ORAL) docusate sodium (COLACE) 100 mg capsule ferrous sulfate 325 mg (65 mg iron) Oral Tablet gabapentin (NEURONTIN) 600 mg Oral Tablet GLATOPA 40 mg/mL SubQ Syringe ibuprofen (ADVIL;MOTRIN) 200 mg tablet metoprolol succinate (TOPROL-XL) 50 mg Oral Tablet Sustained Release 24 hr multivitamin (THERAGRAN) per tablet nitroGLYCERIN (NITROSTAT) 0.4 mg SL Tablet, Sublingual OMEGA-3S/DHA/EPA/FISH OIL/D3 (VITAMIN-D + OMEGA-3 ORAL) pantoprazole (PROTONIX) 40 mg Oral Tablet, Delayed Release (E.C.) tiZANidine (ZANAFLEX) 2 mg Oral Tablet albuterol (PROVENTIL HFA;VENTOLIN HFA) 90 mcg/actuation Inhl HFA Aerosol Inhaler chlorhexidine (PERIDEX) 0.12 % MM Mouthwash No current facility-administered medications for this encounter. PHYSICAL EXAM: Vitals: 10/11/24 1420 BP: 122/67 Pulse: 65 Resp: 18 Temp: 98.2 ??F (36.8 ??C) SpO2: 98% Wt Readings from Last 3 Encounters: 10/11/24 193 lb 9.6 oz (87.8 kg) 08/09/24 199 lb 8 oz (90.5 kg) 07/02/24 197 lb (89.4 kg) ECO Physical Exam Constitutional: General: He is not in acute distress. Appearance: He is not toxic-appearing. HENT: Head: Normocephalic and atraumatic. Eyes: General: No scleral icterus. Right eye: No discharge. Left eye: No discharge. Pulmonary: Effort: Pulmonary effort is normal. No respiratory distress. Skin: General: Skin is dry. Coloration: Skin is not jaundiced or pale. Neurological: Mental Status: He is alert. Psychiatric: Mood and Affect: Mood normal. Behavior: Behavior normal. LABS: WBC Date/Time Value Ref Range Status 10/11/2024 02:17 PM 3.2 (L) 3.7 - 10.3 x10(3)/mcL Final 10/28/2014 07:28 AM 7.7 4.0 - 11.0 x10(3)/mcL Final Hgb Date/Time Value Ref Range Status 10/11/2024 02:17 PM 14.8 13.7 - 17.5 g/dL Final 10/28/2014 07:28 AM 16.5 13.5 - 17.1 gm/dL Final Platelet Date/Time Value Ref Range Status 10/11/2024 02:17 PM 108 (L) 155 - 369 x10(3)/mcL Final 10/28/2014 07:28 AM 260 144 - 423 x10(3)/mcL Final Neut# Date/Time Value Ref Range Status 10/05/2014 11:35 PM 12.0 (H) 1.8 - 7.7 x10(3)/mcL Final Neut # Date/Time Value Ref Range Status 10/11/2024 02:17 PM 2.0 1.6 - 6.1 x10(3)/mcL Final Comment: Neutrophils equals segs plus bands BUN Date/Time Value Ref Range Status 10/11/2024 02:17 PM 10 8 - 23 mg/dL Final 05/24/2016 08:08 AM 12 6 - 20 mg/dL Final Creatinine Date/Time Value Ref Range Status 10/11/2024 02:17 PM 1.00 0.67 - 1.30 mg/dL Final 05/24/2016 08:08 AM 0.95 0.67 - 1.30 mg/dL Final Sodium Date/Time Value Ref Range Status 10/11/2024 02:17 PM 139 136 - 145 mmol/L Final 05/24/2016 08:08 AM 145 136 - 145 mmol/L Final Potassium Date/Time Value Ref Range Status 10/11/2024 02:17 PM 4.4 3.5 - 5.0 mmol/L Final 05/24/2016 08:08 AM 4.4 3.5 - 5.0 mmol/L Final Calcium Date/Time Value Ref Range Status 10/11/2024 02:17 PM 9.2 8.8 - 10.4 mg/dL Final 05/24/2016 08:08 AM 9.5 8.6 - 10.2 mg/dL Final Bili Total Date/Time Value Ref Range Status 10/11/2024 02:17 PM 0.9 0.2 - 1.4 mg/dL Final 05/24/2016 08:08 AM 0.9 0.1 - 1.4 mg/dL Final Bili Direct Date/Time Value Ref Range Status 02/21/2017 09:08 AM 0.3 0.0 - 0.3 mg/dL Final 10/28/2014 07:28 AM <0.2 0.0 - 0.3 mg/dL Final AST Date/Time Value Ref Range Status 10/11/2024 02:17 PM 38 <=40 U/L Final 05/24/2016 08:08 AM 241 (H) <=40 IU/L Final ALT Date/Time Value Ref Range Status 10/11/2024 02:17 PM 33 <=41 U/L Final 05/24/2016 08:08 AM 479 (H) <=41 IU/L Final Alk Phos Date/Time Value Ref Range Status 10/11/2024 02:17 PM 119 40 - 129 U/L Final 05/24/2016 08:08 AM 208 (H) 40 - 129 IU/L Final TSH Date/Time Value Ref Range Status 08/11/2010 11:41 AM 1.870 0.300 - 5.000 mcIU/mL Final IMAGING: No results found. PATHOLOGY/INVESTIGATIONS REVIEWED: Lab Results Component Value Date FINALDX 07/29/2017 A) Ascending Colon Polyp, Hot Snare: - Tubular Adenoma, Negative For High-Grade Dysplasia. B) Transverse Colon Polyp: - Tubular Adenoma, Negative For High-Grade Dysplasia. C) Sigmoid Colon Polyp, Biopsy and Hot Snare: - Sessile Serrated Polyp, Negative For High-Grade Dysplasia. ASSESSMENT & PLAN Susan was seen today for follow-up. Diagnoses and all orders for this visit: Pancytopenia (HCC) - CBC WITH DIFF; Future - IRON+TIBC; Future - FERRITIN; Future - COMPREHENSIVE METABOLIC PANEL; Future Iron deficiency - FERRITIN; Future - COMPREHENSIVE METABOLIC PANEL; Future Pancytopenia - now anemia is resolved Iron deficiency -In 2019 CBC with normal WBC and Hgb, plts were low but over 100 -Labs from [facility] from June 2024 showed a WBC of 2.6. Had progressive anemia with hgb to 11.7 and clear iron deficiency on labs done earlier in 2024 --had normal b12/folate, negative HIV testing, and benign peripheral smear without schistocytes in July 2024 --started PO iron -->Repeat CBC today shows hgb back to normal 14s. WBC is 3.2 with normal ANC, plts are 108, consistent with his diagnosis of cirrhosis -->continue po iron to maintain stores, will have him RTC in 6mo for repeat labs/visit Smoking history -He isn't sure if he gets a yearly CT. Had recommended he discuss with his PCP [place] -follows with Dr. Chu, on Glatopa Cirrhosis -says that he was previously alcoholic but quit drinking in 1993 -says that he was diagnosed with cirrhosis earlier in 2024 based on an ultrasound of his liver -in light of his iron deficiency he was referred back to Dr. Thomas -he says that he was started on a treatment for hepatitis B as well -he says that he is established with a GI physician through [facility] (sees JAZMÍN Hatfield) Dispo: Return in about 6 months (around 04/12/2025) for BRIGHT OV, LAB APT - CBC, ferritin, iron/tibc. Feliciano Tierney MD Hematology and Medical Oncology [facility] documented in this encounter Miscellaneous Notes * Addendum Note - Tasha Diego MA - 10/11/2024 2:00 PM EDTEncounter addended by: Tasha Diego MA on: 10/12/2024 10:12 AM Actions taken: Charge Capture section accepted documented in this encounter Plan of Treatment Upcoming Encounters Date Type Department Care Team (Late st Contact Info) Description 01/13/2025 12:20 PM EDT Office Visit SEP Neurology [facility] [address] [place] [id number] ChuDavid MD [address] [address] 04/11/2025 1:15 PM EST Appointment [facility] [address] [facility] [place] [id number] 04/11/2025 1:30 PM EST Appointment [facility] [address] [place] [address] Rina Mathis, SCREENER PERFUMER [address] [place] [address] documented as of this encounter Goals Goal Patient Goal Type Associated Problems Recent Progress Patient-Stated? Author Blood Pressure < 140/90 Blood Pressure 122/67(2024 2:20 PM EDT) Shakeel Montalvo MD Maintain a healthy diet, exercise regularly and maintain an ideal body weight General Shakeel Montalvo MD Stay Tobacco Free Lifestyle Shakeel Montalvo MD documented as of this encounter Results * (ABNORMAL) COMPREHENSIVE METABOLIC PANEL (10/11/2024 2:17 PM EDT) Sodium 139 136 - 145 mmol/L 10/11/2024 2:37 PM EDT [facility] Potassium 4.4 3.5 - 5.0 mmol/L 10/11/2024 2:37 PM EDT [facility] Chloride 103 98 - 107 mmol/L 10/11/2024 2:37 PM EDT [facility] Total CO2 27 22 - 29 mmol/L 10/11/2024 2:37 PM EDT [facility] Anion Gap 9 7 - 16 mmol/L 10/11/2024 2:37 PM EDT [facility] Calcium 9.2 8.8 - 10.4 mg/dL 10/11/2024 2:37 PM EDT [facility] Glucose Lvl 123(H) 70 - 99 mg/dL 10/11/2024 2:37 PM EDT [facility] BUN 10 8 - 23 mg/dL 10/11/2024 2:37 PM EDT [facility] Creatinine 1.00 0.67 - 1.30 mg/dL 10/11/2024 2:37 PM EDT [facility] Albumin 4.0 3.2 - 4.6 gm/dL 10/11/2024 2:37 PM EDT [facility] Total Protein 7.4 6.4 - 8.3 gm/dL 10/11/2024 2:37 PM EDT [facility] Bili Total 0.9 0.2 - 1.4 mg/dL 10/11/2024 2:37 PM EDT [facility] ALT 33 <=41 U/L 10/11/2024 2:37 PM EDT [facility] AST 38 <=40 U/L 10/11/2024 2:37 PM EDT [facility] Alk Phos 119 40 - 129 U/L 10/11/2024 2:37 PM EDT [facility] eGFR (CKD-EPIcr 2020) 85 >=60 mL/min/1.7 3 m2 10/11/2024 2:37 PM EDT [facility] Comment:Estimated GFR was ca lculated using the CKD-EPIcr (2020) equation refit without race. The equation is recommended by the National Kidney Foundation - [place] [employer] of Nephrology Task Force. Blood VENOUS BLOOD / Unknown Venipuncture / Unknown 10/11/2024 2:17 PM EDT 10/11/2024 2:18 PM EDT Feliciano Tierney MD CHEMISTRY ORDERABLES Final Resu Performing Organization Address [facility] de Phone Number [facility] [address] [place] [address] * FERRITIN (10/11/2024 2:17 PM EDT) Pathologist [facility] Ferritin 37 30 - 400 ng/mL 10/11/2024 6:55 PM EDT [facility] [employer] Blood VENOUS BLOOD / Unknown Venipuncture / Unknown 10/11/2024 2:17 PM EDT 10/11/2024 2:18 PM EDT Narrative [facility] [employer] - 10/11/2024 6:55 PM EDT Ingestion of judith doses of biotin (>5 mg/day) taken within 8 hours of drawing blood sample can interfere with this immunoassay test. Feliciano Tierney MD CHEMISTRY ORDERABLES Final Resu lt Performing Organization Address [facility] Co de Phone Number [facility] [employer] [address] , [place] [address] * IRON+TIBC (10/11/2024 2:17 PM EDT) [facility] Iron 99 50 - 170 mcg/dL 10/11/2024 6:55 PM EDT PREFERRED [facility] Transferrin 277 200 - 360 mg/dL 10/11/2024 6:55 PM EDT [facility] Transferrin Saturation 26 20 - 50 % 10/11/2024 6:55 PM EDT [facility] TIBC 388 250 - 400 mcg/dL 10/11/2024 6:55 PM EDT [facility] Blood VENOUS BLOOD / Unknown Venipuncture / Unknown 10/11/2024 2:17 PM EDT 10/11/2024 2:18 PM EDT us Feliciano Tierney MD CHEMISTRY ORDERABLES Final Resu lt PREFERRED [facility] [employer], [facility] [address] , [place] [address] * (ABNORMAL) CBC WITH DIFF (10/11/2024 2:17 PM EDT) Pathologist [facility] WBC 3.2(L) 3.7 - 10.3 x10(3)/mcL 10/11/2024 2:23 PM EDT [facility] RBC 5.30 4.60 - 6.10 x10(6)/mcL 10/11/2024 2:23 PM EDT [facility] Hgb 14.8 13.7 - 17.5 g/dL 10/11/2024 2:23 PM EDT [facility] Hct 44.6 40.0 - 51.0 % 10/11/2024 2:23 PM EDT [facility] MCV 84.2 80.0 - 100.0 fL 10/11/2024 2:23 PM EDT [facility] MCH 27.9 26.0 - 34.0 pg 10/11/2024 2:23 PM EDT [facility] MCHC 33.2 30.7 - 35.5 g/dL 10/11/2024 2:23 PM EDT [facility] RDW 16.3(H) <=14.9 % 10/11/2024 2:23 PM EDT [facility] Platelet 108(L) 155 - 369 x10(3)/[facility] 10/11/2024 2:23 PM EDT [facility] MPV 10.0 8.8 - 12.5 fL 10/11/2024 2:23 PM EDT [facility] Neut Percent 61.0 % 10/11/2024 2:23 PM EDT [facility] Comment:Neutrophils equals s egs plus bands Imm Gran% 0.0 % 10/11/2024 2:23 PM EDT [facility] Comment:Automated count of m etamyelocytes, myelocytes and promyelocytes. Lymph Percent 22.0 % 10/11/2024 2:23 PM EDT [facility] [employer] Percent 13.0 % 10/11/2024 2:23 PM EDT [facility] Eos Percent 3.1 % 10/11/2024 2:23 PM EDT [facility] Baso Percent 0.9 % 10/11/2024 2:23 PM EDT [facility] Neut # 2.0 1.6 - 6.1 x10(3)/[facility] 10/11/2024 2:23 PM EDT [facility] Comment:Neutrophils equals s egs plus bands IMMGRAN# 0.0 0.0 - 0.1 x10(3)/mcL 10/11/2024 2:23 PM EDT [facility] Comment:Automated count of m etamyelocytes, myelocytes and promyelocytes. An absolute IG <0.1 is reported as 0.0. Lymph # 0.7(L) 1.2 - 3.9 x10(3)/mcL 10/11/2024 2:23 PM EDT [facility] [employer] # 0.4 0.3 - 0.9 x10(3)/[facility] 10/11/2024 2:23 PM EDT [facility] Eos# 0.1 0.0 - 0.5 x10(3)/mcL 10/11/2024 2:23 PM EDT [facility] Baso # 0.0 0.0 - 0.1 x10(3)/[facility] 10/11/2024 2:23 PM EDT [facility] Blood VENOUS BLOOD / Unknown Venipuncture / Unknown 10/11/2024 2:17 PM EDT 10/11/2024 2:18 PM EDT us Feliciano Tierney MD HEMATOLOGY ORDERABLES Final Res ult [facility] [address] [place] [address] documented in this encounter Visit Diagnoses Diagnosis Pancytopenia (HCC)- Primary Other pancytopenia Iron deficiency Other disorders of iron metabolism documented in this encounter
--- OUTSIDE RECORDS SUMMARY | 2024-11-17 11:32 | XMS_ITS | Continuity of Care Document ---
Author Name [facility] Organization [facility] Care Team Providers Care Cloth Boil Off Machine Operator Name Role Phone [facility] Unavailable Unavailable Problems Combined list of problems from Department of Defense and Veterans Affairs facilities. It does not include entries that were removed or entered in error. Problem Status Onset Date Problem Type Date of Resolution Comments Source Anxiety Disorder Active Condition [place] Benign secondary hypertension Active Condition [facility] Coronary Artery Disease Active Condition [place] Depression * (ICD-9-CM 311./300.4) Active Condition [place] Gerd Active Condition [place] Hypercholesterolemia Active Condition [place] Multiple Sclerosis * (ICD-9-CM 340.) Active Condition [place] Tobacco Use Disorder * (ICD-9-CM 305.1) Active Condition [place] Medications Combined list of outpatient medications from Department of Defense and Veterans Affairs facilities.Medications provided include 1) outpatient medications from the last 15 months, and 2) patient-reported medications. Medication Details Route Status Patient Instructions Prescription Expires Prescription Number Last Dispense Date Ordering Provider Order Date Order Qty Source ASPIRIN 81MG TAB,EC TAKE ONE TABLET BY MOUTH EVERY DAY ORAL ACTIVE HOWARD EMMANUEL 2008 [facility] CBALEX IBUPROFEN 600MG TAB TAKE ONE TABLET BY MOUTH ORAL ACTIVE [facility]MMANUEL [facility] INTERFERON BETA-1B INJ,LYPHL INJECT UNDER THE SKIN QOD SUBCUT ANEOUS ACTIVE HOWARD EMMANUEL 2008 [facility] Immunizations Combined list of available immunizations from the Department of Defense and Veterans Affairs facilities. Immunization Series Date Given Administered By Site Reaction Lot Number CVX Code Drug Staff Analyst Status Comments Source TDAP 2008 115 complet ed [place] INFLUENZA, UNSPECIFIED FORMULATION 2008 88 complet ed pt has not had vaccine since last heart attack 2006 [facility] Procedures Combined list of: 1) Procedures from Department of Veterans Affairs facilities going back up to thelast 18 months, not all VA non-surgical procedures are included; 2) All procedures from the Department of Defense facilities. Procedure Procedure Type Code Date Perfomer Comments Martin galvan SKIN TEST; TUBERCULOSIS, INTRADERMAL 10/01/2006 [facility] DIGITAL RECTAL EXAMINATION, ANNUAL 06/03/2005 [facility] PURE TONE AUDIOMETRY (THRESHOLD); AIR ONLY 06/03/2005 [facility] VIS FUNCT SCREEN,AUTOMAT/SEMI-AUTOMAT BILAT QUANT DETERM VISUAL ACUITY,OCULAR ALIGN,COLOR VISION,PSEUDOISOCHROMAT PLATES,& FIELD VIS (MAY INC ALL/SOME SCRN DETERM FOR CONTRAST SENSITIV,VIS UND GLARE) 06/03/2005 [facility] Social History Combined list of available smoking, tobacco, and other social history from Department of Defense and Veterans Affairs facilities. Social History Type Response Date Comment Martin galvan Tobacco smoking status NHIS TOBACCO CESSATION THERAPY ONGOING 09/28/2008 [facility] History of tobacco use TOBACCO CURRENT USER 09/20/2008 [facility] This section is an empty social history section. [facility]
--- OUTSIDE RECORDS SUMMARY | 2024-11-17 12:41 | XMS_ITS | Clinical Summary ---
Author Organization [facility] Address [address] [place] [phone] Phone Care Team Providers Care Facilities Operator Name Role Phone Julio Cesar Akhtar DMD [phone] Conditions or Problems Problem Name Problem Code Onset Date Status Entry Date Provider Comment Standard Description Annotate PERIAPICAL ABSCESS WITHOUT SINUS 451739719 (SNOMED CT) Inactive Julio Cesar Akhtar DMD Periapical abscess without sinus tract PERIAPICAL ABSCESS WITHOUT SINUS [id number] (SNOMED CT) Inactive Julio Cesar Akhtar DMD Periapical abscess without sinus tract Medications Medication Instructions Start Date Stop Date Generic Name NDC Provider AMOXICILLIN 500 MG TABS TAKE 1 TABLET EVERY 8 HOURS 5 AMOXICILLIN [id number] Julio Cesar Akhtar DMD CLINDAMYCIN HCL 150 MG CAPS TAKE 2 CAPSULES EVERY 6 HOURS 4 CLINDAMYCIN HCL [id number] Julio Cesar Akhtar DMD Medications Administered No information available. Allergies, Adverse Reactions, Alerts No information available. Results No information available. Plan of Care No information available. Procedures No information available. Vital Signs No information available. Immunizations No information available. Advance Directives No information available.
--- OUTSIDE RECORDS SUMMARY | 2024-11-17 12:43 | XMS_ITS | Continuity of Care Document ---
Author Organization [facility] Address [address] [place] [address] Phone Care Team Providers Care Medical Insurance Biller Name Role Phone Unavailable Primary Care Provider Unavailabl e Encounters Date Type Department Care Team Description 10/11/2024 1:45 PM EDT - 10/11/2024 1:59 PM EDT Hospital Encounter [facility] [address] [place] [phone] Pancytopenia (HCC); Iron deficiency Discharge Disposition: Home or Self Care 10/11/2024 2:00 PM EDT - 10/11/2024 11:59 PM EDT Hospital Encounter [facility] [address] [place] [address] Feliciano Tierney MD Pancytopenia (HCC) (Primary Dx); Iron deficiency Discharge Disposition: Home or Self Care 10/08/2024 Travel 09/15/2024 Results Follow-Up [facility] [place] [address] David Chu MD MRI BRAIN W WO CONTRAST 09/15/2024 7:43 AM EDT - 09/15/2024 11:59 PM EDT Hospital Encounter [facility] MRI [address] [place] [address] David Chu MD Multiple sclerosis (HCC); Cognitive changes Discharge Disposition: Home or Self Care 08/17/2024 Telephone [facility] [address], 3[place] [address] Wolfgang Thomas MD PHD Anemia 08/11/2024 Results Follow-Up [facility] [address] [place] [address] Rina Mathis, MASTER CONTROL SUPERVISOR FERRITIN, CBC WITH DIFF, IRON+TIBC, Additional followed-up results: 3 08/09/2024 12:45 PM EDT Hospital Encounter [facility] [address] [place] [address] Other decreased white blood cell (WBC) count; Other iron deficiency anemias; Iron deficiency anemia due to chronic blood loss; Encounter for screening for human immunodeficiency virus (HIV) Discharge Disposition: Home or Self Care 08/09/2024 12:45 PM EDT Hospital Encounter [facility] [address] [place] [address] Rina Mathis, MASTER CONTROL SUPERVISOR Other decreased white blood cell (WBC) count (Primary Dx); Other iron deficiency anemias; Iron deficiency anemia due to chronic blood loss; Encounter for screening for human immunodeficiency virus (HIV); Thrombocytopenia; Smoker Discharge Disposition: Home or Self Care 07/15/2024 Telephone [facility] [address] [place] [address] Rina Mathis, MASTER CONTROL SUPERVISOR New Patient Heme (New Patient Referred by David Chu, Leukopenia) 07/09/2024 Telephone [facility] [address] [place] [address] David Chu MD Results 07/02/2024 12:20 PM EST Office Visit [facility] [place] [id number] [place] [address] David Chu MD MS (multiple sclerosis) ([facility]) (Primary Dx); Cognitive changes; Muscle spasticity; Vitamin D deficiency; Hypertension, unspecified type; Other abnormal findings on diagnostic imaging of central nervous system 06/09/2024 Refill [facility] [place] [id number] [place] [address] David Chu MD Medication Refill 04/05/2024 Specialty [facility] [address] [place] [address] Razia Starks, [facility] Multiple Sclerosis Medication Management (glatiramer) 04/04/2024 Refill [facility] [place] [address] [place] [address] David Chu MD Medication Refill 04/01/2024 Telephone [facility] [place] [address] [place] [address] Vlad, David Lundberg MD Letter for School/Work 02/25/2024 Telephone [facility] [place] [address] [place] [address] David Chu MD Symptom Call 01/30/2024 Nurse Triage [facility] [address] [place] [address] Dipti Peterson RN 01/22/2024 Telephone [facility] [place] [address] [place] [address] Vlad, David Lundberg MD Other 12/26/2023 10:30 AM EDT Office Visit [facility] Neurology [place] [address] [place] [address] David Chu MD Multiple sclerosis (HCC) (Primary Dx); Muscle spasticity; Vitamin D deficiency; Hypertension, unspecified type; Cognitive changes; Worries 12/18/2023 Refill [facility] [place] [address] [place] [address] David Chu MD Medication Refill 12/18/2023 Refill [facility] Infectious [facility] [address] [place] [address] Leopoldo Mendieta MD Medication Refill 10/25/2023 Refill [facility] [place] [address] [place] [address] David Chu MD Medication Refill 10/02/2023 Telephone [facility] [place] [address] [place] [address] Vlad, David Lundberg MD No Show (SNC ) 08/04/2023 Refill [facility] Infectious Disease [address] [address] Leopoldo Mendieta MD Medication Refill 06/10/2023 Orders Only [facility] [place] [address] [place] [address] Brandi Posey MA Muscle spasticity 06/09/2023 Refill [facility] [place] [address] [place] [address] Vlad, David Lundberg MD Medication Refill 04/18/2023 Refill [facility] Neurology [place] [address] [place] [address] Vlad, David Lundberg MD Medication Refill 04/01/2023 3:20 PM EST Office Visit [facility] Neurology [place] [address] [place] [address] Vlad, David Lundberg MD MS (multiple sclerosis) (HCC) (Primary Dx); Muscle spasticity; Vitamin D deficiency; Hypertension, unspecified type 03/31/2023 Telephone [facility] [place] [address] [place] [address] Vlad, David Lundberg MD No Show 03/17/2023 Refill [facility] [address] [address] Leopoldo Mendieta MD Medication Refill 12/28/2022 Refill [facility] Infectious Disease [address] [place] [address] Leopoldo Mendieta MD Medication Refill 11/12/2022 Orders Only [facility] [address] [place] [address] Brandi Posey MA Muscle spasticity 11/09/2022 Refill [facility] Infect[facility] Disease [address] [address] Leopoldo Mendieta MD Medication Refill 11/06/2022 9:45 AM EDT Office Visit [facility] Infectious Disease [address] [address] Leopoldo Mendieta MD MRSA colonization (Primary Dx) 09/20/2022 Specialty [facility] [address] [place] [address] [facility] Multiple Sclerosis Medication Management 09/03/2022 Specialty Pharmacy [facility] [address] [place] [id number] [facility] Multiple Sclerosis Medication Management; Pharmacy Initial Assessment (Glatopa) 09/02/2022 Specialty [facility] [address] [place] [address] [facility] Multiple Sclerosis Medication Management (Glatiramer) 09/02/2022 1:30 PM EDT Office Visit [facility] Neurology [facility] [address] [place] [address] David Chu MD MS (multiple sclerosis) (HCC) (Primary Dx); Muscle spasticity; Vitamin D deficiency; Hypertension, unspecified type; Multiple sclerosis (HCC) 07/09/2022 Telephone [facility] Neurology [facility] [address] [place] [address] David Chu MD No Show 07/14/2020 Refill [facility] Neu[facility] [address] [place] [address] David Chu MD Medication Refill 05/02/2020 Telephone [facility] Neurology [facility] [address] [place] [address] David Chu MD Prior Authorization (Glatiramer Acetate) 04/19/2020 Refill [facility] [address] [phone] Srini Lynch MD Medication Refill (Metoprolol) 02/18/2020 Refill [facility] [place] [address] [place] [address] David Chu MD Medication Refill 02/01/2020 Telephone [facility] [place] [address] [place] [address] David Chu MD No Show (NO SHOW) 01/28/2020 Telephone [facility] [place] [address] [place] [address] David Chu MD Other (moved to [place], couldn't keep appt next week) 01/20/2020 Refill [facility] [address] [facility] [place] [address] Shakeel Edgar MD Medication Refill 12/20/2019 Refill [facility] [address] [facility] [place] [address] Shakeel Edgar MD Medication Refill 11/11/2019 10:30 AM EDT Office Visit [facility] [address] [facility] [place] [address] Shakeel Edgar MD Annual physical exam (Primary Dx); Nausea; MS (multiple sclerosis) (HCC); Gastroesophageal reflux disease without esophagitis 11/11/2019 Travel 11/10/2019 Refill [facility] [place] [address] [place] [address] David Chu MD Medication Refill 11/08/2019 Refill [facility] [address] [facility] [place] [address] Shakeel Edgar MD Medication Refill 10/11/2019 Refill [facility] [address] [facility] [place] [address] Shakeel Edgar MD Medication Refill 10/05/2019 Telephone [facility] Neu[facility] [address] [place] [address] David Chu MD Medication Management (? on glatiramir) 09/12/2019 Refill [facility] [address] [place] [address] David Chu MD Medication Refill 09/08/2019 Refill [facility] [address] [place] [address] Shakeel Edgar MD Medication Refill 09/02/2019 Telephone [facility] [address] [place] [address] David Chu MD Other (cx appt) 08/30/2019 Travel 08/13/2019 External Contact [facility] [address] [place] [address] Carlos Lunsford, MS (multiple sclerosis) (HCC) 08/13/2019 Travel 08/11/2019 External Contact [facility] [address] [place] [address] Shakeel Edgar MD Nausea (Primary Dx) 08/11/2019 Travel 08/11/2019 Refill [facility] [address] [place] [address] Shakeel Edgar MD Medication Refill 08/11/2019 Refill [facility] [address] [place] [address] Shakeel Edgar MD Medication Refill 08/11/2019 Telephone [facility] [address] [place] [address] Shakeel Edgar MD Other 07/27/2019 Telephone [facility] Neu[facility] [address] [place] [address] Kaleb, Carol Cat, DO Medication Management (? stopping MS med) 07/14/2019 Telephone [facility] [address] [place] [address] Shakeel Edgar MD Medication Management 07/13/2019 Travel 07/02/2019 Refill [facility] Neu[facility] [address] [place] [address] David Chu MD Medication Refill 06/09/2019 Travel 06/09/2019 1:30 PM EST Office Visit [facility] [place] [address] [place] [address] Srini Lynch MD Essential hypertension; Dyslipidemia; Smoker; AMI inferior wall (HCC); Non-STEMI (non-ST elevated myocardial infarction) ([facility]); Coronary artery disease involving assiniboine and sioux coronary artery of assiniboine and sioux heart without angina pectoris; Post PTCA; MS (multiple sclerosis) ([facility]) 06/03/2019 Telephone [place] [address] [place] [address] David Chu MD Precertification (glatiramer) 05/18/2019 Refill [facility] [address] [place] [address] Shakeel Edgar MD Medication Refill 04/16/2019 1:45 PM EST - 04/16/2019 11:59 PM EST Hospital Encounter [facility] [address] [place] [address] Dyslipidemia Discharge Disposition: Home or Self Care 04/15/2019 Telephone [facility] [address] [place] [address] Shakeel Edgar MD Orders 04/15/2019 1:47 PM EST - 04/15/2019 11:59 PM EST Hospital Encounter [facility] [place] [address] High risk medications (not anticoagulants) long-term use Discharge Disposition: Home or Self Care 04/15/2019 8:45 AM EST Office Visit [facility] [address] [place] [address] Shakeel Edgar MD High risk medications (not anticoagulants) long-term use (Primary Dx); MS (multiple sclerosis) (HCC); Gastroesophageal reflux disease without esophagitis; Essential hypertension; Dyslipidemia 04/06/2019 Refill [facility] [address] [place] [address] Shakeel Edgar MD Medication Refill 03/09/2019 Refill [facility] [address] [place] [address] Shakeel Edgar MD Medication Refill 03/03/2019 Refill [facility] [address] [place] [address] Shakeel Edgar MD Medication Refill 02/11/2019 Refill [facility] [address] [place] [address] Shakeel Edgar MD Medication Refill 02/11/2019 Telephone [facility] [address] [facility] [place] [place] [address] Shakeel Edgar MD Medication Management 02/02/2019 Refill [facility] Neurology [facility] [address] [place] [address] David Chu MD Medication Refill 01/21/2019 8:30 AM EDT Office Visit [facility] [address] [place] [address] Shakeel Edgar MD MS (multiple sclerosis) ([facility]) (Primary Dx); Dyslipidemia 11/03/2018 Telephone [facility] [address] [place] [address] David Chu MD Orders (auto injector ) 10/22/2018 2:00 PM EDT Office Visit [facility] [address] [place] [address] Shakeel Edgar MD Smoker (Primary Dx); MS (multiple sclerosis) (HCC) 09/19/2018 Refill [facility] [place] [address] [place] [address] David Chu MD Medication Refill 09/18/2018 Telephone [place] [address] [place] [address] David Chu MD Paperwork/forms 09/08/2018 3:00 PM EDT Office Visit [place] [address] [place] [address] David Chu MD MS (multiple sclerosis) ([facility]) (Primary Dx); Muscle spasm; Bilateral carpal tunnel syndrome 08/24/2018 Refill [place] [address] [place] [address] David Chu MD Medication Refill (Autoject 2 for Glass Syringe) 08/05/2018 Telephone [place] [address] [place] [address] David Chu MD No Show (SHORT NOTICE CANCEL) 07/27/2018 1:30 PM EDT Office Visit [facility] [address] [place] [address] Shakeel Edgar MD Essential hypertension (Primary Dx); Gastroesophageal reflux disease without esophagitis; MS (multiple sclerosis) (HCC); Dyslipidemia; Gastroesophageal reflux disease with esophagitis 06/23/2018 7:55 AM EST - 06/23/2018 11:[address] [facility] Hospital Encounter [facility] [address] [place] [address] Annual physical exam; Essential hypertension; Elevated LFTs Discharge Disposition: Home or Self Care 06/03/2018 Refill [facility] [address] [place] [address] Shakeel Edgar MD Medication Refill 06/01/2018 Telephone [place] [address] [place] [address] David Chu MD Precertification (copaxone) 05/04/2018 8:30 AM EST Office Visit [facility] [address] [place] [address] Shakeel Edgar MD Annual physical exam (Primary Dx); MS (multiple sclerosis) (HCC); Essential hypertension; Elevated LFTs 05/02/2018 Refill [facility] [address] [place] [address] David Chu MD Medication Refill 04/30/2018 Refill [facility] [address] [place] [address] Shakeel Edgar MD Medication Refill 03/31/2018 Refill [facility] [address] [facility] [place] [address] Shakeel Edgar MD Medication Refill 01/29/2018 9:30 AM EDT Office Visit [facility] [address] [facility] [place] [address] Shakeel Edgar MD Muscle spasm (Primary Dx); Gastroesophageal reflux disease without esophagitis; Essential hypertension; Dyslipidemia; Smoker; MS (multiple sclerosis) (HCC) 01/27/2018 8:00 AM EDT Office Visit [facility] Neu[facility] [address] [place] [address] David Chu MD MS (multiple sclerosis) (HCC) (Primary Dx); Bilateral carpal tunnel syndrome 12/06/2017 Refill [facility] Neu[facility] [address] [place] [address] David Chu MD Medication Refill 11/03/2017 9:15 AM EDT Office Visit [facility] [address] [place] [address] Shakeel Edgar MD Nausea (Primary Dx); MS (multiple sclerosis) (HCC); Essential hypertension 10/28/2017 Refill [facility] [address] [place] [facility] [address] Shakeel Edgar MD Medication Refill 10/28/2017 Refill [facility] [address] [place] [address] Shakeel Edgar MD Medication Refill 08/06/2017 8:00 AM EDT Office Visit [facility] [place] [address] [place] [address] Srini Lynch MD MS (multiple sclerosis) ([facility]) (Primary Dx); Non-STEMI (non-ST elevated myocardial infarction) (HCC); AMI inferior wall ([facility]); Essential hypertension; Dyslipidemia; Post PTCA; Smoker 08/01/2017 1:30 PM EDT Office Visit [facility] [address] [place] [address] Shakeel Edgar MD MS (multiple sclerosis) ([facility]) 07/29/2017 10:30 AM EDT - 07/29/2017 11:00 AM EDT Surgery [facility] [address] [place] [address] Wolfgang Thomas MD PHD COLONOSCOPY 07/29/2017 9:17 AM EDT - 07/29/2017 1:45 PM EDT Hospital Encounter [facility] [address] [place] [address] Wolfgang Thomas MD PHD Screening for colon cancer Discharge Disposition: Home or Self Care 07/28/2017 3:10 PM EDT - 07/28/2017 11:59 PM EDT Hospital Encounter [facility] [address] [place] [address] Dyslipidemia Discharge Disposition: Home or Self Care 07/17/2017 Orders Only [facility] [address] [place] [address] Pillo Wheeler LPN Screening for colon cancer (Primary Dx) 07/10/2017 Telephone [facility] Neurology [facility] [address] [place] [address] David Chu MD Medication Management (copaxone) 07/09/2017 Telephone [facility] Gastro [facility] [address] [facility] [address] [place] [address] Wolfgang Thomas MD PHD Medication Management (suprep) 07/07/2017 Telephone [facility] Gastro [facility] [address] [facility] [address] [place] [address] Wolfgang Thomas MD PHD Colon Cancer Screening 07/04/2017 Refill [facility] [place] [id number] [place] [address] David Chu MD Medication Refill 06/30/2017 Telephone [facility] [address] [place] [address] Elina Bishop, RMA Results (positive blood in stool) 06/30/2017 Abstract [facility] [address] [place] [address] Elina Bishop, RMA 06/30/2017 Orders Only [address] [address] Elina Bishop, RMA Blood in the stool (Primary Dx) 06/30/2017 8:45 AM EST Office Visit [place] [phone] Shakeel Edgar MD Hematochezia (Primary Dx); MS (multiple sclerosis) (HCC); Hyperlipidemia with target LDL less than 100 06/27/2017 Telephone [facility] H&V [address] [address] Staci Stallings RMA Medication Problem 06/02/2017 Refill [facility] Neurology [place] [id number] [address] David Chu MD Medication Refill (Autoject 2 for glass syringe) 05/08/2017 8:00 AM EST Office Visit [facility] [address] [place] [address] Shakeel Edgar MD Gastroesophageal reflux disease without esophagitis (Primary Dx); Essential hypertension; MS (multiple sclerosis) ([facility]); Dyslipidemia; Smoker; Muscle spasm; Dermatitis 03/25/2017 4:00 PM EST - 03/25/2017 11:59 PM EST Hospital Encounter [facility] [address] [place] [address] [facility], [place] Paresthesias Discharge Disposition: Home or Self Care 03/24/2017 7:43 AM EST - 03/24/2017 11:59 PM EST Hospital Encounter [facility] [address] [place] [address] Shakeel Edgar MD Elevated LFTs Discharge Disposition: Home or Self Care 03/19/2017 2:47 PM EST - 03/19/2017 11:59 PM EST Hospital Encounter [facility] [address] [facility] [place] [address] Screening for colon cancer Discharge Disposition: Home or Self Care 03/15/2017 Orders Only [facility] [address] [place] [address] Shakeel Edgar MD Elevated LFTs (Primary Dx) 03/13/2017 9:00 AM EST Office Visit [facility] [address] [place] [address] Shakeel Edgar MD Routine general medical examination at a health care facility (Primary Dx); Flu vaccine need; Need for pneumococcal vaccination; Screening for colon cancer; Herpes zoster without complication 02/24/2017 Telephone [facility] Neurology [place] [address] [place] [address] David Chu MD Visit Follow Up; Results 02/21/2017 9:05 AM EDT - 02/21/2017 11:59 PM EDT Hospital Encounter [facility] [address] [place] [address] Vitamin D deficiency; Elevated LFTs Discharge Disposition: Home or Self Care 02/20/2017 3:00 PM EDT Office Visit [facility] Neurology [place] [address] [place] [address] David Chu MD MS (multiple sclerosis) ([facility]) (Primary Dx); Paresthesias; Vitamin D deficiency; Elevated LFTs; Spasticity 02/05/2017 10:00 AM EDT Office Visit [facility] [address] [place] [address] Srini Lynch MD AMI inferior wall ([facility]) (Primary Dx); Non-STEMI (non-ST elevated myocardial infarction) ([facility]); Essential hypertension; Coronary artery disease involving assiniboine and sioux coronary artery of assiniboine and sioux heart without angina pectoris; MS (multiple sclerosis) ([facility]); Dyslipidemia; Smoker; Post PTCA 01/29/2017 Patient Outreach [facility] [address] [place] [id number] Bekah William, Clerical Staff Other (ATTRIBTUION LETTER) 01/06/2017 Refill [facility] [address] [place] [address] Srini Lynch MD Medication Refill 08/07/2016 Telephone [place] [address] [place] [address] Vlad, David Lundberg MD Letter for School/Work 06/17/2016 [facility] Neurology [place] [address] [place] [address] Vlad, David Lundberg MD Other (toradol inj and appt) 06/06/2016 Telephone [place] [address] [place] [address] Vlad, David Lundberg MD Other (approval Copaxone 40mg) 06/04/2016 Telephone [facility] Neurology [place] [address] [place] [address] Torito Davis MD No Show 05/24/2016 [place] [address] [place] [address] Vlad, David Lundberg MD Results 05/24/2016 8:07 AM EST - 05/24/2016 11:59 PM EST Hospital Encounter [facility] [address] [place] [address] David Chu MD MS (multiple sclerosis) (HCC); Paresthesias; Myalgia; Disorder of bone Discharge Disposition: Home or Self Care 05/24/2016 8:01 AM EST - 05/24/2016 8:06 AM EST Hospital Encounter [facility] MRI [address] [place] [address] David Chu MD MS (multiple sclerosis) (HCC); Paresthesias Discharge Disposition: Home or Self Care 05/24/2016 8:00 AM EST Hospital Encounter [facility] MRI [address] [place] [address] David Chu MD MS (multiple sclerosis) (HCC); Paresthesias Discharge Disposition: Home or Self Care 05/17/2016 12:20 PM EST Office Visit [facility] [address] [place] [id number] David Chu MD MS (multiple sclerosis) (HCC) (Primary Dx); Paresthesias; Myalgia; Disorder of bone 02/07/2016 11:09 AM EDT - 02/07/2016 11:59 PM EDT Hospital Encounter [facility] [address] [place] [address] AMI inferior wall (HCC); Non-STEMI (non-ST elevated myocardial infarction) (HCC); Coronary artery disease involving assiniboine and sioux coronary artery of assiniboine and sioux heart without angina pectoris; Post PTCA; MS (multiple sclerosis) (HCC); Dyslipidemia; Smoker; Essential hypertension Discharge Disposition: Home or Self Care 02/07/2016 10:30 AM EDT Office Visit [facility] [address] [address] Srini Lynch MD AMI inferior wall (HCC) (Primary Dx); Non-STEMI (non-ST elevated myocardial infarction) (HCC); Coronary artery disease involving assiniboine and sioux coronary artery of assiniboine and sioux heart without angina pectoris; Post PTCA; MS (multiple sclerosis) (HCC); Dyslipidemia; Smoker; Essential hypertension 01/12/2016 Refill [facility] [address] [address] Srini Lynch MD Medication Refill 12/19/2015 Telephone [place] [address] [place] [address] Vlad, David Lundberg MD No Show 11/29/2015 Refill [facility]&[address] [address] Srini Lynch MD Medication Refill 09/21/2015 Telephone [facility] Neurology [place] [address] [place] [address] Vlad, David Lundberg MD Medication Refill 08/18/2015 Telephone [place] [address] [place], [facility] Vlad, David Lundberg MD Rash; Fall (balance) 08/04/[address] [address] Srini Lynch MD Medication Refill (simvastatin) 06/28/2015 Telephone [place] [address] [place] [address] Vlad, David Lundberg MD Urticaria 06/16/2015 Telephone [place] [address] [place] [address] Vlad, David Lundberg MD Multiple Sclerosis 04/12/2015 3:15 PM EST Office Visit [facility] &[address] [address] Srini Lynch MD AMI inferior wall (HCC) (Primary Dx); Non-STEMI (non-ST elevated myocardial infarction) (HCC); MS (multiple sclerosis) (HCC); Dyslipidemia; Smoker; Coronary artery disease involving assiniboine and sioux coronary artery of assiniboine and sioux heart without angina pectoris; Post PTCA; Essential hypertension 04/01/2015 8:10 AM EST - 04/01/2015 11:59 PM EST Hospital Encounter [facility] [address] [place] [address] Dyslipidemia Discharge Disposition: Home or Self Care 11/10/2014 Orders Only [facility] [address] [place] [address] Srini Lynch MD Dyslipidemia (Primary Dx) 10/28/2014 7:25 AM EDT - 10/28/2014 11:59 PM EDT Hospital Encounter [facility] [address] [place] [address] AMI inferior wall (HCC); Essential hypertension; Coronary artery disease involving assiniboine and sioux coronary artery without angina pectoris; Post PTCA; Dyslipidemia; Smoker; Non-STEMI (non-ST elevated myocardial infarction) (HCC); HTN (hypertension); MS (multiple sclerosis) (HCC); CAD (coronary artery disease) Discharge Disposition: Home or Self Care 10/19/2014 3:30 PM EDT Office Visit [facility] [place] [address] [place] [address] Srini Lynch MD AMI inferior wall (HCC) (Primary Dx); Essential hypertension; Coronary artery disease involving assiniboine and sioux coronary artery without angina pectoris; Post PTCA; Dyslipidemia; Smoker 10/18/2014 7:25 AM EDT - 10/18/2014 11:59 PM EDT Hospital Encounter [facility] [address] [place] [address] Discharge Disposition: Home or Self Care 10/14/2014 Telephone [facility] Neurology [facility] [address] [place] [address] David Chu MD Medication Refill (copaxone) 10/06/2014 3:32 AM EDT - 10/06/2014 2:00 PM EDT Hospital Encounter [facility] [address] [place] [address] Briana Youngblood MD Kurapati, Rajeev, MD Discharge Disposition: Home or Self Care 10/05/2014 11:07 PM EDT - 10/06/2014 2:42 AM EDT Emergency [facility] [address] [place] [address] Delisa Cool MD Altered level of consciousness (Primary Dx); Multiple sclerosis (HCC); Leukocytosis Discharge Disposition: Short Term Hospital 10/05/2014 Telephone [facility] [place] [address] [place] [address] Staci Stallings RMA Visit Follow Up (Pt did not show for appointment.) 10/04/2014 Refill [facility] [address] [place] [address] Srini Lynch MD Medication Refill (Metoprolol, Simvastatin) 07/19/2014 Telephone [place] [address] [place] [address] David Chu MD Precertification (copaxone 40mg) 07/06/2014 Telephone [place] [address] [place] [address] David Chu MD Precertification 06/27/2014 Telephone [place] [address] [place] [address] David Chu MD Medication Management (copaxone) 06/26/2014 2:45 PM EST - 06/26/2014 3:54 PM EST Emergency [facility] [address] [place] [address] Mesha Prieto MD Pneumonia (Primary Dx) Discharge Disposition: Home or Self Care 06/20/2014 Telephone [facility] [place] [address] [place] [address] David Chu MD Medication Management 06/06/2014 Refill [facility] [address] [place] [address] Alley Cazares MD Medication Refill 06/01/2014 Refill [facility] [address] [place] [address] Alley Cazares MD Medication Refill 06/01/2014 Refill [facility] [place] [address] [place] [address] Srini Lynch MD Medication Refill 05/31/2014 Telephone [facility] Neurology [facility] [address] [place] [phone] David Chu MD Paperwork/forms (copaxone form nds completion) 05/27/2014 Refill [facility] [address] [place] [address] Alley Cazares MD Medication Refill 05/20/2014 Refill [facility]&[place] [address] Srini Lynch MD Medication Refill 05/05/[address] [place] [address] Alley Cazares MD Medication Refill 05/04/2014 Orders Only [facility] [address] [facility] [place] [address] Elina Bishop, RMA AMI inferior wall (HCC) (Primary Dx) 04/26/2014 Refill [facility] [address] [facility] [place] [address] Alley Cazares MD Medication Refill 04/25/2014 Refill [facility] [address] [facility] [place] [address] Alley Cazares MD Medication Refill 04/06/2014 Refill [facility] [address] [facility] [place] [address] Alley Cazares MD Medication Refill 04/06/2014 7:30 AM EST - 04/06/2014 11:59 PM EST Hospital Encounter [facility] [address] [facility] [place] [id number] AMI inferior wall (HCC); HTN (hypertension); CAD (coronary artery disease) Discharge Disposition: Home or Self Care 04/06/2014 11:30 AM EST Office Visit [facility] [place] [address] [place] [phone] Srini Lynch MD CAD (coronary artery disease) (Primary Dx); AMI inferior wall (HCC); HTN (hypertension); Post PTCA; Non-STEMI (non-ST elevated myocardial infarction) ([facility]); Dyslipidemia; Smoker; MS (multiple sclerosis) ([facility]) 04/05/2014 Refill [facility] [address] [place] [address] Alley Cazares MD Medication Refill 03/23/2014 Patient Outreach [facility] [address] [place] [address] Cecilia Lugo RN Care Transition (HCA Contact Call-ED f/u call) 03/22/2014 Telephone [facility] H&V [facility] [address] [place] [address] Monica Rivero APRN Other 03/22/2014 Telephone [facility] [address] [place] [address] Srini Lynch MD Other 03/22/2014 6:27 AM EST - 03/22/2014 6:47 AM EST Emergency [facility] [address] [place] [address] Naun Prasad MD Pain, dental (Primary Dx) Discharge Disposition: Home or Self Care 03/21/2014 Refill [facility] [address] [place] [address] Alley Cazares MD Medication Refill 03/02/2014 Refill [facility] [address] [place] [address] Alley Cazares MD Medication Refill 02/17/2014 Refill [facility] [address] [place] [address] Alley Cazares MD Medication Refill 02/11/2014 Telephone [facility] Neurology [place] [address] [place] [address] David Chu MD Paperwork/forms 01/29/2014 Refill [facility] [place] [phone] Srini Lynch MD Medication Refill (Metoprolol) 01/17/2014 Refill [facility] [address] [place] [address] Alley Cazares MD Medication Refill 01/05/2014 12:00 PM EDT Office Visit [place] [address] [place] [address] David Chu MD MS (multiple sclerosis) (HCC) (Primary Dx) 12/14/2013 Telephone [place] [address] [place] [address] David Chu MD Orders (to get the copaxone 40mg dose) 12/11/2013 Refill [facility] [address] [place] [address] Alley Cazares MD Medication Refill 12/08/2013 Telephone [place] [address] [place] [address] David Chu MD Medication Management 11/29/2013 Refill [facility] [address] [place] [address] Alley Cazares MD Medication Refill 11/17/2013 Telephone [facility] [address] [facility] [place] [address] Cecilia Lugo RN Care Transition (HCA Contact Call) 11/08/[address] [address] Alley Cazares MD Medication Refill 10/23/2013 11:00 AM EDT Office Visit [address] [address] Alley Cazares MD Abrasion, leg w/ infection (Primary Dx) 10/07/[address] [address] Alley Cazares MD Medication Refill 10/06/2013 1:30 PM EDT Office Visit [facility] H[facility]V [address] [address] Srini Lynch MD AMI inferior wall (HCC) (Primary Dx); HTN (hypertension); CAD (coronary artery disease) 09/27/2013 11:00 AM EDT - 09/27/2013 11:59 PM EDT Hospital Encounter [facility] [address] [place] [address] Alley Cazares MD Fluttering heart (HCC) Discharge Disposition: Home or Self Care 09/23/2013 Orders Only [address] [address] Alley Cazares MD Flubrett heart (HCC) (Primary Dx) 09/21/[address] [address] Jil Novak RN Care Transition (Follow up call.) 08/30/2013 3:30 PM EDT - 08/30/2013 11:59 PM EDT Hospital Encounter [facility] [place] PROC[facility] [place] [address] Lipid screening Discharge Disposition: Home or Self Care 08/30/2013 9:00 AM EDT [facility] [address] [place] [address] Alley Cazares MD MS (multiple sclerosis) (HCC) (Primary Dx); Lipid screening; Taking medication for chronic disease; Shingles 08/26/[address] [facility] [address] [place] [address] David Chu MD No Show 08/26/2013 Refill [address] [place] [address] Alley Cazares MD Medication Refill 08/12/2013 Telephone [address] [place] [address] Jil Novak RN Care Transition (Follow up call.) 07/19/2013 9:07 PM EDT - 07/19/2013 11:59 PM EDT Hospital Encounter [facility] [place] [facility] [place] [address] Discharge Disposition: Home or Self Care 07/13/[address] [facility] [address] [place] [address] David Chu MD Other (Copaxone approval) 07/13/[address] [place] [address] Madiha Espinoza MA Referral (GENERAL SURGERY) 07/09/[address] [place] [address] Jil Novak RN Care Transition (Follow up call ) 07/01/2013 7:22 PM EST - 07/01/2013 11:59 PM EST Hospital Encounter [facility] [place] [facility] [place] [address] Arthralgia; Fatigue; Elevated blood sugar Discharge Disposition: Home or Self Care 07/01/2013 9:00 AM EST Office Visit [facility] [place] [address] Alley Cazares MD Constipation (Primary Dx); Elevated white blood cell count; Elevated blood sugar; Fatigue; Arthralgia; Umbilical hernia 06/28/2013 Refill [facility] H&V [address] [phone] Srini Lynch MD Medication Refill 06/28/[address] [address] Alley Cazares MD Medication Refill 06/16/2013 3:08 PM EST - 06/16/2013 3:[address] [address] Ephraim Mckay MD Subcutaneous cyst (Primary Dx) Discharge Disposition: Home or Self Care 06/08/2013 Telephone [facility] [address] [place] [address] Danii Richey RN Care Transition (Follow up call) 06/07/2013 2:30 PM EST Office Visit [address] [address] Alley Cazares MD Bronchitis (Primary Dx); Cyst of lip 06/06/2013 7:47 AM EST - 06/06/2013 9:[address] [address] Carlos [place] MD Dehydration (Primary Dx); URI, acute; Leukocytosis Discharge Disposition: Home or Self Care 06/05/2013 9:07 PM EST - 06/05/2013 10:[address] [address] Teofilo Hawkins DO Nausea (Primary Dx); Cough; Muscle cramps Discharge Disposition: Home or Self Care 05/27/2013 Telephone [facility] [address] [place] [address] Danii Richey RN Care Transition (Follow up call) 05/26/2013 11:15 AM EST Office Visit [facility] [address] [address] Srini Lynch MD CAD (coronary artery disease) (Primary Dx); AMI inferior wall (HCC); HTN (hypertension); Post PTCA; Non-STEMI (non-ST elevated myocardial infarction) (HCC); Dyslipidemia; MS (multiple sclerosis) (HCC); Smoker 05/24/2013 Telephone [facility] [address] [address] Alley Cazares MD Medication Refill 05/20/2013 9:45 AM EST Office Visit [address] [address] Alley Cazares MD AMI inferior wall (HCC) (Primary Dx); MS (multiple sclerosis) (HCC); CAD (coronary artery disease); Non-STEMI (non-ST elevated myocardial infarction) (HCC); Herpes stomatitis; GERD (gastroesophageal reflux disease) 05/19/2013 Telephone [facility] [address] [place] [phone] Danii Richey RN Care Transition (Hospital follow up ) 05/19/2013 Telephone [facility] [address] [place] [phone] Danii Richey RN Care Transition (Hospital f/u call) 05/18/2013 Telephone [facility] [address] [facility] [address] [place] [address] Jarrod Chen MD Medication Problem 05/18/2013 Refill [facility] [address] [address] Navin Mackenzie MD Medication Refill 05/16/2013 5:03 AM EST - 05/18/2013 10:24 AM EST Hospital Encounter [facility] [address] [facility] 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 05/16/2013 2:45 AM EST - 05/16/2013 4:10 AM EST Emergency [facility] [address] [place] [address] Federico Waite MD Acute chest pain (Primary Dx); Diaphoresis Discharge Disposition: Short [facility] 05/12/2013 Refill [facility] [address] [address] Srini Lynch MD Medication Refill (NTG.) 05/11/2013 7:15 PM EST - 05/11/2013 7:48 PM EST Emergency [facility] [address] [place] [address] Teofilo Hawkins DO Herpes zoster (Primary Dx) Discharge Disposition: Left Without Being Seen 05/11/2013 Telephone [facility] [address] [place] [address] Vannesa Alfonso RMA Medication Refill 04/29/2013 Refill [facility] Neu[facility] [address] [place] [address] David Chu MD Medication Refill 04/29/2013 9:45 AM EST Office Visit [facility] [address] [place] [address] Alley Cazares MD Impetigo (Primary Dx); Herpes stomatitis 04/26/2013 3:18 PM EST - 04/26/2013 3:59 PM EST Emergency [facility] [address] [place] [address] Naun Prasad MD Herpes stomatitis (Primary Dx) Discharge Disposition: Home or Self Care 04/26/2013 Telephone [facility] [address] [place] [address] FeliciaRos gambleKIKO Herpes Zoster 04/24/2013 12:11 PM EST - 04/24/2013 12:42 PM EST Emergency [facility] [address] [place] [address] Ashok Young MD Herpes stomatitis (Primary Dx) Discharge Disposition: Home or Self Care 04/22/2013 Telephone [facility] [place] [address] [place] [address] Vlad, David Lundberg MD Other (copaxone) 04/15/2013 Telephone [facility] [place] [address] [place] [address] Vlad, David Lundberg MD Medication Management 04/13/2013 Telephone [facility] [place] [address] [place] [address] Vlad, David Lundberg MD Other 04/13/2013 Telephone [facility] [address] [place] [address] Jil Novak, TAJ Other 04/13/2013 Telephone [facility] [address] [place] [address] Anika Flood MA Other 04/13/2013 Telephone [facility] Neurology [place] [address] [place] [address] Vlad, David Lundberg MD Other 04/13/2013 4:17 AM EST - 04/13/2013 5:45 AM EST Emergency [facility] [address] [place] [address] Delisa Cool MD Nausea Vomiting And Diarrhea (Primary Dx); Multiple sclerosis (HCC) Discharge Disposition: Home or Self Care 04/12/2013 1:15 PM EST Office Visit [facility] [address] [place] [address] Alley Cazares MD Vomiting (Primary Dx); Adverse drug reaction 03/29/2013 Telephone [facility] Neurology [place] [address] [place] [address] David Chu MD Precertification 03/28/2013 1:02 AM EST - 03/28/2013 1:24 AM EST Emergency [facility] [address] [place] [address] Edmond Levin MD Allergic reaction caused by a drug (Primary Dx); MS (multiple sclerosis) (HCC) Discharge Disposition: Home or Self Care 03/27/2013 Refill [facility] [address] [place] [address] Alley Cazares MD Medication Refill 03/24/2013 4:50 PM EST - 03/24/2013 11:59 PM EST Hospital Encounter [facility] [address] [place] [address] MS (multiple sclerosis) (HCC) Discharge Disposition: Home or Self Care 03/24/2013 3:20 PM EST Office Visit [facility] Neurology [place] [address] [place] [address] David Chu MD MS (multiple sclerosis) (HCC) (Primary Dx) 03/15/[address] [address] Navin Mackenzie MD Medication Refill 02/24/2013 Refill [facility] [address] [place] [address] Alley Cazares MD Medication Refill 02/12/2013 Abstract [facility] [address] [place] [address] Ros Morfin, [facility] 02/01/2013 Refill [facility] [place] [address] [place] [address] Srini Lynch MD Medication Refill 01/26/2013 12:06 AM EDT - 01/26/2013 1:25 AM EDT [facility] [address] [place] [address] Teofilo Hawkins DO Acute urticaria (Primary Dx) Discharge Disposition: Home or Self Care 01/23/2013 Refill [facility] [address] [place] [address] Alley Cazares MD Medication Refill 01/18/2013 9:15 AM EDT Office Visit [facility] [address] [place] [address] Alley Cazares MD Sinusitis (Primary Dx) 12/24/2012 Refill [facility] [address] [place] [address] Alley Cazares MD Medication Refill 12/10/2012 Refill [facility] [address] [place] [address] Navin Mackenzie MD Medication Refill 11/18/2012 11:15 AM EDT Office Visit [facility] [place] [address] [place] [address] Srini Lynch MD HTN (hypertension) (Primary Dx); CAD (coronary artery disease); AMI inferior wall (HCC); Dyslipidemia; Smoker; MS (multiple sclerosis) (HCC); Post PTCA 11/17/2012 Refill [facility] [place] [address] [place] [address] Srini Lynch MD Medication Refill 10/27/2012 Telephone [facility] [address] [address] Navin Mackenzie MD Medication Refill 10/20/2012 Telephone [facility] Neurology [place] [address] [place] [address] David Chu MD Multiple Sclerosis 10/20/2012 Abstract [facility] [address] [place] [address] David Chu MD 10/16/2012 9:45 AM EDT Office Visit [facility] [address] [place] [address] Alley Cazares MD Elevated liver function tests (Primary Dx) 09/22/2012 1:30 PM EDT - 09/22/2012 11:59 PM EDT Hospital Encounter [facility] [address] [place] [address] Alexa Pinto APRN HTN (hypertension) (Primary Dx); CAD (coronary artery disease); AMI inferior wall (HCC); Dyslipidemia; MS (multiple sclerosis) (HCC); Smoker; Post PTCA Discharge Disposition: Home or Self Care 09/22/2012 12:59 PM EDT - 09/22/2012 1:29 PM EDT Hospital Encounter [facility] [address] [place] [address] Alexa Pinto APRN HTN (hypertension); CAD (coronary artery disease); AMI inferior wall (HCC); Dyslipidemia; MS (multiple sclerosis) (HCC); Smoker; Post PTCA Discharge Disposition: Home or Self Care 09/22/2012 12:24 PM EDT - 09/22/2012 12:58 PM EDT Hospital Encounter [facility] [address] [place] [address] Alexa Pinto APRN HTN (hypertension); CAD (coronary artery disease); AMI inferior wall (HCC); Dyslipidemia; MS (multiple sclerosis) (HCC); Smoker; Post PTCA Discharge Disposition: Home or Self Care 09/22/2012 12:24 PM EDT - 09/22/2012 12:58 PM EDT Hospital Encounter [facility] [address] [place] [address] Alexa Pinto APRN HTN (hypertension); CAD (coronary artery disease); AMI inferior wall (HCC); Dyslipidemia; MS (multiple sclerosis) (HCC); Smoker; Post PTCA Discharge Disposition: Home or Self Care 09/11/2012 Telephone [facility] Neurology [facility] [address] [place] [address] David Chu MD Medication Management 09/07/[address] [address] Navin Mackenzie MD Medication Refill 08/22/[address] [address] Navin Mackenzie MD Medication Refill 06/24/[address] [address] Navin Mackenzie MD Medication Refill 06/01/[address] [address] Alley Cazares MD Medication Refill 05/20/2012 12:30 PM EST Office Visit [facility] H&V [address] [address] Alexa Pinto APRN HTN (hypertension) (Primary Dx); CAD (coronary artery disease); AMI inferior wall (HCC); Dyslipidemia; MS (multiple sclerosis) (HCC); Smoker; Post PTCA 05/15/[address] [address] Navin Mackenzie MD Medication Refill 05/11/2012 10:43 AM EST - 05/11/2012 11:59 PM EST Hospital Encounter [facility] [place] [facility] [place] [address] Elevated LFTs Discharge Disposition: Home or Self Care 05/11/2012 1:50 PM EST Office Visit [address] [address] Navin Mackenzie MD Elevated LFTs (Primary Dx) 05/07/2012 1:01 PM EST - 05/07/2012 11:59 PM EST Hospital Encounter [facility] [address] [place] [address] David Chu MD MS (multiple sclerosis) (HCC) Discharge Disposition: Home or Self Care 05/07/2012 1:00 PM EST Hospital Encounter [facility] [address] [place] [address] David Chu MD MS (multiple sclerosis) (HCC) Discharge Disposition: Home or Self Care 05/05/2012 Refill [facility] [place] [address] [place] [address] David Chu MD Medication Refill 04/22/2012 Refill [facility] [address] [address] Srini Lynch MD Medication Refill (metoprolol Tartrate 50 mg 2xdaily.) 04/09/2012 Telephone [facility] [place] [address] [place] [address] David Chu MD Visit Follow Up 04/06/2012 12:00 PM EST Office Visit [facility] [place] [address] [place] [address] David Chu MD MS (multiple sclerosis) (HCC) (Primary Dx) 03/30/2012 2:30 PM EST [facility] [address] [place] [address] Navin Mackenzie MD CAD (coronary artery disease); Chronic pain 03/04/2012 8:25 AM EST - 03/04/2012 11:59 PM EST Hospital Encounter [facility] [address] [place] [address] CAD (coronary artery disease); AMI inferior wall (HCC); HTN (hypertension); Dyslipidemia; Smoker; MS (multiple sclerosis) (HCC); Post PTCA Discharge Disposition: Home or Self Care 03/03/2012 Telephone [facility] [address] [place] [address] Anika Flood MA Medication Refill 01/29/2012 1:30 PM EDT Office Visit [facility] [place] [address] [place] [address] Srini Lynch MD CAD (coronary artery disease) (Primary Dx); AMI inferior wall (HCC); HTN (hypertension); Dyslipidemia; Smoker; MS (multiple sclerosis) (HCC); Post PTCA 01/21/2012 8:07 PM EDT - 01/21/2012 11:59 PM EDT Hospital Encounter [facility] [place] PROCESSING [facility] [place] [address] Lipid screening; HTN (hypertension) Discharge Disposition: Home or Self Care 01/21/2012 2:50 PM EDT [facility] [address] [place] [address] Alley Cazares MD MS (multiple sclerosis) (HCC); HTN (hypertension); Chronic pain; CAD (coronary artery disease); GERD (gastroesophageal reflux disease); Lipid screening 11/12/2011 1:48 PM EDT - 11/14/2011 12:33 PM EDT Hospital Encounter [facility] 3C PULMONARY [facility] [place] [address] Srini Estes MD Burchell, Del A, MD Bacterial pneumonia, unspecified (Primary Dx); MS (multiple sclerosis) (HCC); CAD (coronary artery disease); HTN (hypertension); Tobacco use disorder Discharge Disposition: Home or Self Care 11/12/2011 9:12 AM EDT - 11/12/2011 12:44 PM EDT Emergency [facility] [address] [place] [id number] Tony Moerno MD Pneumonia; Fever; Multiple sclerosis (HCC) Discharge Disposition: Short [facility] 10/15/2011 3:06 PM EDT - 10/15/2011 5:55 PM EDT Emergency [facility] [address] [place] [address] [place] [address] Delisa Cool MD Testicular pain; Vomiting; Multiple sclerosis (HCC); Constipation Discharge Disposition: Home or Self Care 08/11/2010 11:25 AM EDT - 08/11/2010 11:59 PM EDT Hospital Encounter [facility] [address] [place] [id number] DM w/o complication type II (HCC); Unspecified hereditary and idiopathic peripheral neuropathy; Other postablative hypothyroidism Discharge Disposition: Home or Self Care 07/20/2010 8:00 PM EDT - 07/20/2010 11:22 PM EDT Emergency [facility] [place] [address] Saroj Chavez MD Urinary retention; Multiple sclerosis (HCC); Pneumonia; Chronic pain Discharge Disposition: Home or Self Care 03/25/2010 8:33 AM EST - 03/25/2010 9:24 AM EST Emergency [facility] [place] [address] Saroj Chavez MD Dental caries Discharge Disposition: Home or Self Care 01/05/2010 7:50 PM EDT - 01/05/2010 10:33 PM EDT Emergency [facility] [address] [place] [address] Naila Arciniega MD Pneumonia; Chronic pain; Multiple sclerosis (HCC) Discharge Disposition: Home or Self Care 12/17/2009 6:22 PM EDT - 12/17/2009 7:24 PM EDT Emergency [facility] Federico Waite MD 11/25/2009 12:10 PM EDT - 11/25/2009 11:59 PM EDT Hospital Encounter HST SEG [facility] David Otero MD 01/16/2009 8:10 AM EDT - 01/16/2009 8:45 AM EDT Emergency [facility] EPIC [facility]K [facility] Ba Will MD 01/12/2009 4:35 PM EDT - 01/12/2009 5:35 PM EDT Emergency [facility] EPIC CON UNK [facility] Ezekiel Marroquin MD 10/31/2008 3:07 PM EDT - 10/31/2008 4:00 PM EDT Emergency [facility] EPIC CON UNK [facility] Naun Prasad MD 10/17/2008 3:41 PM EDT - 10/17/2008 5:35 PM EDT Emergency [facility] EPIC CON UNK [facility] Ephraim Mckay MD 09/26/2008 11:55 AM EDT - 09/26/2008 11:59 PM EDT Hospital Encounter [facility] Edmond Cardoza MD 08/14/2008 12:40 PM EDT - 08/14/2008 1:26 PM EDT Emergency [facility] EPIC CON UNK [facility] Teofilo Hawkins DO 10/04/2004 3:52 PM EDT - 10/04/2004 11:59 PM EDT Hospital Encounter [facility] Eugenio Cormier MD 10/04/2004 3:43 PM EDT - 10/04/2004 11:59 PM EDT Hospital Encounter [facility]ST RADIOLOGY [facility] Eugenio Cormier MD 11/15/2001 1:20 PM EDT - 11/15/2001 2:15 PM EDT Emergency [facility] UNKNFTT Generic, Historical Provider 12/27/2000 Hospital Encounter [facility] UNK[facility]TT Generic, Historical Provider 11/17/2000 12:15 PM EDT - 11/17/2000 3:30 PM EDT Emergency [facility] UNK[facility]TT Generic, Historical Provider Allergies Active Allergy Reactions Criticality Noted Date Comments Etrhbix-Rcv-Syi Reductase Inhibitors Other (See Comments) 03/20/2020 Elevated LFTs Mupirocin Rash Low 08/28/2021 Medications docusate sodium (COLACE) 100 mg capsule Take 100 mg by mouth daily as needed. Active DOCOSAHEXANOIC ACID/EPA (FISH OIL ORAL) Take by mouth 3 times daily. Active multivitamin (THERAGRAN) per tablet Take 1 Tab by mouth daily. Active ibuprofen (ADVIL;MOTRIN) 200 mg tablet Take 200 mg by mouth every 8 hours as needed. Active aspirin 325 mg Oral TabletIndication s:CAD (coronary artery disease),AMI inferior wall (HCC),HTN (hypertension),P ost PTCA,Non-STEMI (non-ST elevated myocardial infarction) (HCC),Dyslipidem ia,Smoker,MS (multiple sclerosis) ([facility]) Take 1 Tab by mouth daily (with breakfast). 100 Tab 3 04/06/20 14 Active albuterol (PROVENTIL HFA;VENTOLIN HFA) 90 mcg/actuation Inhl HFA Aerosol Inhaler Inhale 1-2 Puffs into the lungs every 6 hours as needed for Wheezing. 1 Inhaler 0 06/27/19 15 Active OMEGA-3S/DHA/EPA /FISH OIL/D3 (VITAMIN-D + OMEGA-3 ORAL)Indications :AMI inferior wall (HCC),Non-STEMI (non-ST elevated myocardial infarction) ([facility]),Essential hypertension,Cor onary artery disease involving assiniboine and sioux coronary artery of assiniboine and sioux heart without angina pectoris,MS (multiple sclerosis) ([facility]),Dyslipidem ia,Smoker,Post PTCA Take by mouth. Activ e nitroGLYCERIN (NITROSTAT) 0.4 mg SL Tablet, SublingualIndica tions:AMI inferior wall (HCC),Non-STEMI (non-ST elevated myocardial infarction) ([facility]),Coronary artery disease involving assiniboine and sioux coronary artery of assiniboine and sioux heart without angina pectoris,Post PTCA,MS (multiple sclerosis) ([facility]),Dyslipidem ia,Smoker,Essent ial hypertension Place 1 Tab under the tongue every 5 minutes as needed for Chest pain (Go to ED if 3rd tab is needed!). 25 Tab 3 06/09/19 20 Active tiZANidine (ZANAFLEX) 2 mg Oral TabletIndication s:Muscle spasm TAKE 1 AND 1/2 TABLETS TWICE DAILY 270 Tab 1 11/11/19 20 Active pantoprazole (PROTONIX) 40 mg Oral Tablet, Delayed Release (E.C.)Indication s:Gastroesophage al reflux disease without esophagitis Take 1 Tab by mouth daily. 90 Tab 11/11/19 20 Active metoprolol succinate (TOPROL-XL) 50 mg Oral Tablet Sustained Release 24 hrIndications:Es sential hypertension,Dys lipidemia,Smoker TAKE 1 TABLET EVERY DAY 90 Tab 04/20/20 20 Active bacitracin Top Ointment Apply topically 2 times daily. 28 g 6 11/07/19 23 Active chlorhexidine (PERIDEX) 0.12 % MM Mouthwash USE 10 ML BY MOUTH 2 TIMES DAILY FOR 24 DAYS. 473 mL 11/13/19 23 Active GLATOPA 40 mg/mL SubQ SyringeIndicatio ns:MS (multiple sclerosis) ([facility]) INJECT 40MG SUBCUTANEOUSLY 3 TIMES A WEEK 1 Each 11 04/05/20 24 Active gabapentin (NEURONTIN) 600 mg Oral TabletIndication s:Muscle spasticity TAKE 1 TABLET THREE TIMES DAILY 270 Tablet 1 06/09/19 25 Active ferrous sulfate 325 mg (65 mg iron) Oral TabletIndication s:Other decreased white blood cell (WBC) count,Other iron deficiency anemias Take 1 Tablet by mouth daily. 30 Tablet 5 08/10/19 25 Active Active Problems Patient Care Coordination No te Formatting of this note is d ifferent from the original. CSTA: 04/15/2019 (TYPE): gabapentin ESTEBAN: 12/20/2019 UDS: CLEVE: 11/11/2019 Problem Noted Date Diagnosed Date Muscle spasticity 09/02/2022 Vitamin D deficiency 09/02/2022 Gastroesophageal reflux disease with esophagitis 07/27/2018 Bilateral carpal tunnel syndrome 01/27/2018 Non-STEMI (non-ST elevated myocardial infarction ) 05/16/2013 AMI inferior wall 01/29/2012 HTN (hypertension) 01/29/2012 Dyslipidemia 01/29/2012 Smoker 01/29/2012 MS (multiple sclerosis) 01/29/2012 CAD (coronary artery disease) 01/29/2012 Overview (04/06/2014): AMI 06/05 CAD with hx of intervention at for AMI by Dr Ghosh --Liberte RCA stent 02/10/07 --POBA to unknown vessel circa 06/05 AMI 05/16/13 1. At least moderate LAD and right coronary artery stenosis. 2. Thrombotic occlusion of the obtuse marginal branch with preservation of the LETY-3 flow and successful aspiration thrombectomy and a 3.5 x 18 drug-eluting stent, Xience, with a reduction of the stenosis to 0% and with a preservation of the LETY-3 flow. 3. Mildly decreased LV systolic function with an ejection fraction of 45%. Post PTCA 01/29/2012 Immunizations Immunization Administration Dates Next Due Influenza Vaccine Quadrivalent 01/29/2018,2016 Influenza Vaccine, Unspecified Formulation 04/12,01/21/2012 Influenza Virus Vaccine Quadrivalant, Flublok Pneumococcal Conjugate Vaccine 13 Valent 017 Pneumococcal Polysaccharide 23 Valent 01/21/2012 Tdap 10/23/2013 Family History Medical History Relation Name Comments Cancer Father Cancer Mother Relation Name Status Comments Father Mother Social History Smoking Status as of 11/17/2024 Tobacco Use Types Packs/Day Years Used Date Smoking Tobacco: Never Assessed PHQ-2 Answer Date Recorded PHQ-2 Score 0 10/22/2018 Sex and Gender Information Value Date Recorded Sex Assigned at Not on file Legal Sex Male 7:05 AM EDT Gender Identity Not on file Sexual Orientation Not on file Last Filed Vital Signs Vital Sign Reading [...] oz) 10/11/2024 2:20 P M EDT Height 170.2 cm (5' 7 ) 08/09/2024 1:01 PM EDT Body Mass Index 30.32 08/09/2024 1:01 PM EDT Plan of Treatment Upcoming Encounters Date Type Department Care Team (Late st Contact Info) Description 01/13/2025 12:20 PM EDT Office Visit [facility] Neurology [facility] [address] [place] [phone] David Chu MD [address] [facility] [address] [place] [address] 04/11/2025 1:15 PM EST Appointment [facility] [address] [place] [address] 04/11/2025 1:30 PM EST Appointment [facility] [address] [place] [address] Rina Mathis, MASTER CONTROL SUPERVISOR [address] [place] [address] [address] [place] [address] Medical Devices Implanted Type Area R&D Engineer Device Identifier Shelf Expiration Date Model / Serial / Lot Stent Xience Xpedition Drug Eluting 3.5 X 18 - [id number] Implanted:Qty : 1 on 05/16/2013 by Janeen Ballard MD at ED SHOT TUBE MACHINE TENDER Explanted:at [facility] SHOT TUBE MACHINE TENDER (Quantity not on file) Stent-Xp edition N/A: Circumflex [facility]:VASC DEV [id number] Procedures Procedure Name Priority Date/Time Associated Diagnosis Comments CBC WITH DIFF Routine 10/11/2024 2:17 PM EDT Pancytopenia (HCC) IRON+TIBC Routine 10/11/2024 2:17 PM EDT Pancytopenia (HCC) FERRITIN Routine 10/11/2024 2:17 PM EDT Pancytopenia (HCC) Iron deficiency COMPREHENSIVE METABOLIC PANEL Routine 10/11/2024 2:17 PM EDT Pancytopenia (HCC) Iron deficiency MRI BRAIN W WO CONTRAST Routine 09/15/2024 8:41 AM EDT Multiple sclerosis (HCC) Cognitive changes HIV AG/AB Routine 08/09/2024 12:57 PM EDT Other decreased white blood cell (WBC) count Other iron deficiency anemias Iron deficiency anemia due to chronic blood loss Encounter for screening for human immunodeficiency virus (HIV) VITAMIN B12/ FOLIC ACID Routine 08/09/2024 12:57 PM EDT Other decreased white blood cell (WBC) count Other iron deficiency anemias PERIPHERAL SMEAR/PATH REVIEW Routine 08/09/2024 12:57 PM EDT Other decreased white blood cell (WBC) count IRON+TIBC Routine 08/09/2024 12:57 PM EDT Other decreased white blood cell (WBC) count CBC WITH DIFF Routine 08/09/2024 12:57 PM EDT Other decreased white blood cell (WBC) count FERRITIN Routine 08/09/2024 12:57 PM EDT Other decreased white blood cell (WBC) count Other iron deficiency anemias LIPID SCREEN Routine 04/16/2019 1:51 PM EST Dyslipidemia TSH REFLEX TO FT4 Routine 06/23/2018 7:53 AM EST Annual physical exam LIPID SCREEN Routine 06/23/2018 7:53 AM EST Annual physical exam CBC WITH DIFF Routine 06/23/2018 7:53 AM EST Annual physical exam COMPREHENSIVE METABOLIC PANEL Routine 06/23/2018 7:53 AM EST Annual physical exam Essential hypertension Elevated LFTs PATHOLOGY TISSUE REQUEST Routine 07/29/2017 12:20 PM EDT Screening for colon cancer COLONOSCOPY 07/29/2017 11:59 AM EDT Screening for colon cancer GMED COLONOSCOPY Routine 07/29/2017 10:30 AM EDT ASPARTATE AMINOTRANSFERASE Routine 07/28/2017 3:10 PM EDT Dyslipidemia ALANINE AMINOTRANSFERASE Routine 07/28/2017 3:10 PM EDT Dyslipidemia LIPID SCREEN Routine 07/28/2017 3:10 PM EDT Dyslipidemia HM FIT Routine 05/30/2017 US RIGHT UPPER QUADRANT Routine 03/24/2017 8:11 AM EST Elevated LFTs FECAL HEME (FIT) CANCER SCREEN Routine 03/19/2017 2:47 PM EST Screening for colon cancer TSH REFLEX TO FT4 Routine 03/13/2017 10:07 AM EST Routine general medical examination at a [facility] LIPID SCREEN Routine 03/13/2017 10:07 AM EST Routine general medical examination at a health care facility COMPREHENSIVE METABOLIC PANEL Routine 03/13/2017 10:07 AM EST Routine general medical examination at a health care facility CBC WITH DIFF Routine 03/13/2017 10:07 AM EST Routine [facility] at [facility] HCV ANTIBODY SCREEN W/ REFLEX Routine 02/21/2017 9:08 AM EDT Elevated LFTs HEPATIC FUNCTION PANEL Routine 02/21/2017 9:08 AM EDT Elevated LFTs VITAMIN D 25 HYDROXY Routine 02/21/2017 9:08 AM EDT Vitamin D deficiency MRI BRAIN W WO CONTRAST Routine 05/24/2016 9:33 AM EST MS (multiple sclerosis) (HCC) Paresthesias MRI CERVICAL SPINE W WO CONTRAST Routine 05/24/2016 9:27 AM EST MS (multiple sclerosis) (HCC) Paresthesias VITAMIN D 25 HYDROXY Routine 05/24/2016 8:08 AM EST Disorder of bone MS (multiple sclerosis) (HCC) Paresthesias Myalgia CREATINE KINASE Routine 05/24/2016 8:08 AM EST Myalgia COMPREHENSIVE METABOLIC PANEL Routine 05/24/2016 8:08 AM EST MS (multiple sclerosis) (HCC) Paresthesias Myalgia Disorder of bone LIPID SCREEN Routine 02/07/2016 11:10 AM EDT AMI inferior wall (HCC) Non-STEMI (non-ST elevated myocardial infarction) (HCC) Coronary artery disease involving assiniboine and sioux coronary artery of assiniboine and sioux heart without angina pectoris Post PTCA MS (multiple sclerosis) (HCC) Dyslipidemia Smoker Essential hypertension ASPARTATE AMINOTRANSFERASE Routine 02/07/2016 11:10 AM EDT AMI inferior wall (HCC) Non-STEMI (non-ST elevated myocardial infarction) (HCC) Coronary artery disease involving assiniboine and sioux coronary artery of assiniboine and sioux heart without angina pectoris Post PTCA MS (multiple sclerosis) (HCC) Dyslipidemia Smoker Essential hypertension ALANINE AMINOTRANSFERASE Routine 02/07/2016 11:10 AM EDT AMI inferior wall (HCC) Non-STEMI (non-ST elevated myocardial infarction) (HCC) Coronary artery disease involving assiniboine and sioux coronary artery of assiniboine and sioux heart without angina pectoris Post PTCA MS (multiple sclerosis) (HCC) Dyslipidemia Smoker Essential hypertension LIPID SCREEN Routine 04/01/2015 8:11 AM EST Dyslipidemia ASPARTATE AMINOTRANSFERASE Routine 04/01/2015 8:11 AM EST Dyslipidemia ALANINE AMINOTRANSFERASE Routine 04/01/2015 8:11 AM EST Dyslipidemia TSH REFLEX TO FT4 Routine 10/28/2014 7:28 AM EDT AMI inferior wall (HCC) Essential hypertension Coronary artery disease involving assiniboine and sioux coronary artery without angina pectoris Post PTCA Dyslipidemia Smoker LIPID SCREEN Routine 10/28/2014 7:28 AM EDT AMI inferior wall (HCC) Essential hypertension Coronary artery disease involving assiniboine and sioux coronary artery without angina pectoris Post PTCA Dyslipidemia Smoker HEPATIC FUNCTION PANEL Routine 10/28/2014 7:28 AM EDT AMI inferior wall (HCC) Essential hypertension Coronary artery disease involving assiniboine and sioux coronary artery without angina pectoris Post PTCA Dyslipidemia Smoker COMPREHENSIVE METABOLIC PANEL Routine 10/28/2014 7:28 AM EDT AMI inferior wall (HCC) Essential hypertension Coronary artery disease involving assiniboine and sioux coronary artery without angina pectoris Post PTCA Dyslipidemia Smoker CBC Routine 10/28/2014 7:28 AM EDT AMI inferior wall (HCC) Essential hypertension Coronary artery disease involving assiniboine and sioux coronary artery without angina pectoris Post PTCA Dyslipidemia Smoker SCANNED EKG 10/09/2014 3:24 PM EDT SCANNED RHYTHM STRIPS 10/09/2014 3:24 PM EDT EK EKG 12 LEAD STAT 10/06/2014 8:58 AM EDT IP CONSULT TO PSYCHIATRY Routine 10/06/2014 5:14 AM EDT Procedure Note - Praveen Clay MD - 10/06/2014 12:52 PM EDTThis note is in progress. Psych: Full report to follow Imp: Substance induced mood disorder multiplied by underlying MS. 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 Avoid MJ which can have unpredictable effects on mood. Maybe discharged home when medically stable AMMONIA LEVEL STAT 10/06/2014 2:01 AM EDT DRUG SCREEN RAPID PANEL, URINE ([facility]RT,COV ONLY) STAT 10/06/2014 12:35 AM EDT URINALYSIS STAT 10/06/2014 12:35 AM EDT URINE CULTURE (NO STAIN) STAT 10/06/2014 12:35 AM EDT XR CHEST AP PORTABLE ANSHU 10/05/2014 11:[address] HEAD WO CONTRAST STAT 10/05/2014 11:41 PM EDT DIFFERENTIAL STAT 10/05/2014 11:35 PM EDT ALCOHOL MEDICAL STAT 10/05/2014 11:35 PM EDT COMPREHENSIVE METABOLIC PANEL STAT 10/05/2014 11:35 PM EDT CBC WITH DIFF STAT 10/05/2014 11:35 PM EDT BLOOD CULTURE (NO STAIN) STAT 10/05/2014 11:35 PM EDT BLOOD CULTURE (NO STAIN) STAT 10/05/2014 11:24 PM EDT XR CHEST PA AND LATERAL Routine 06/26/2014 2:55 PM EST LDL, CALCULATED Routine 04/06/2014 7:41 AM EST LIPID PANEL REFLEX Routine 04/06/2014 7:41 AM EST AMI inferior wall (HCC) HTN (hypertension) CAD (coronary artery disease) HEPATIC FUNCTION PANEL Routine 04/06/2014 7:41 AM EST AMI inferior wall (HCC) HTN (hypertension) CAD (coronary artery disease) COMPREHENSIVE METABOLIC PANEL Routine 04/06/2014 7:41 AM EST AMI inferior wall (HCC) HTN (hypertension) CAD (coronary artery disease) CBC Routine 04/06/2014 7:41 AM EST AMI inferior wall (HCC) HTN (hypertension) CAD (coronary artery disease) SCANNED HOLTER MONITOR 10/20/2013 2:43 PM EDT HOLTER MONITOR RECORDING AND ANALYSIS Routine 09/27/2013 11:10 AM EDT Fluttering heart (HCC) DIFFERENTIAL Routine 08/30/2013 10:14 AM EDT LIPID SCREEN Routine 08/30/2013 10:14 AM EDT Lipid screening COMPREHENSIVE METABOLIC PANEL Routine 08/30/2013 10:14 AM EDT Lipid screening CBC WITH DIFF Routine 08/30/2013 10:14 AM EDT Lipid screening PATHOLOGY TISSUE REPORT Routine 07/19/2013 9:31 PM EDT DIFFERENTIAL Routine 07/01/2013 9:45 AM EST HEMOGLOBIN A1C Routine 07/01/2013 9:45 AM EST Elevated blood sugar CREATINE KINASE Routine 07/01/2013 9:45 AM EST Fatigue Arthralgia COMPREHENSIVE METABOLIC PANEL Routine 07/01/2013 9:45 AM EST Fatigue CBC WITH DIFF Routine 07/01/2013 9:45 AM EST Fatigue SEDIMENTATION RATE AUTOMATED Routine 07/01/2013 9:45 AM EST Arthralgia RHEUMATOID FACTOR QUALITATIVE Routine 07/01/2013 9:45 AM EST Arthralgia ANTINUCLEAR ANTIBODIES (ABY) SCREEN BY WALTER W/ REFLEX TO IFA Routine 07/01/2013 9:45 AM EST Arthralgia DIFFERENTIAL STAT 06/06/2013 8:16 AM EST URINALYSIS Routine 06/06/2013 8:16 AM EST COMPREHENSIVE METABOLIC PANEL STAT 06/06/2013 8:16 AM EST CBC WITH DIFF STAT 06/06/2013 8:16 AM EST INFLUENZA A/B ANTIGENS STAT 06/06/2013 8:16 AM EST XR CHEST PA AND LATERAL STAT 06/05/2013 9:36 PM EST SCANNED RHYTHM STRIPS 05/20/2013 2:00 PM EST SCANNED RHYTHM STRIPS 05/17/2013 10:48 PM EST SCANNED RHYTHM STRIPS 05/17/2013 2:09 PM EST LIPID SCREEN Routine 05/17/2013 12:24 PM EST EK EKG 12 LEAD Routine 05/17/2013 7:49 AM EST SCANNED RHYTHM STRIPS 05/16/2013 10:09 PM EST POCT ACTIVATED CLOTTING TIME Routine 05/16/2013 5:36 PM EST POCT ACTIVATED CLOTTING TIME Routine 05/16/2013 4:34 PM EST EK EKG 12 LEAD Routine 05/16/2013 3:46 PM EST Chest pain EK EKG 12 LEAD Routine 05/16/2013 3:46 PM EST Chest pain EK EKG 12 LEAD Routine 05/16/2013 3:20 PM EST EK EKG 12 LEAD STAT 05/16/2013 3:14 PM EST PT / INR Routine 05/16/2013 3:12 PM EST TROPONIN-I Timed 05/16/2013 3:12 PM EST SCANNED RHYTHM STRIPS 05/16/2013 3:11 PM EST POCT ACTIVATED CLOTTING TIME Routine 05/16/2013 1:52 PM EST POCT ACTIVATED CLOTTING TIME Routine 05/16/2013 1:21 PM EST CARDIAC PROCEDURE-SHOT TUBE MACHINE TENDER ONLY 05/16/2013 1:02 PM EST NSTEIM SCANNED RHYTHM STRIPS 05/16/2013 11:03 AM EST EK EKG 12 LEAD STAT 05/16/2013 10:34 AM EST TROPONIN-I Timed 05/16/2013 8:48 AM EST EK EKG 12 LEAD STAT 05/16/2013 5:14 AM EST IP CONSULT TO PHARMACY Routine 05/16/2013 5:05 AM EST XR CHEST AP PORTABLE ANSHU 05/16/2013 3:15 AM EST DIFFERENTIAL STAT 05/16/2013 3:00 AM EST TROPONIN-I STAT 05/16/2013 3:00 AM EST BASIC METABOLIC PANEL STAT 05/16/2013 3:00 AM EST CBC WITH DIFF STAT 05/16/2013 3:00 AM EST SALINE LOCK IV STAT 05/16/2013 2:44 AM EST SHOT TUBE MACHINE TENDER PROCEDURE LOG Routine 05/16/2013 12:00 AM EST DIFFERENTIAL STAT 04/13/2013 4:44 AM EST LIPASE LEVEL STAT 04/13/2013 4:44 AM EST COMPREHENSIVE METABOLIC PANEL STAT 04/13/2013 4:44 AM EST CBC WITH DIFF STAT 04/13/2013 4:44 AM EST SALINE LOCK IV STAT 04/13/2013 4:34 AM EST CBC Routine 03/24/2013 4:52 PM EST MS (multiple sclerosis) (HCC) SCANNED LABS 02/09/2013 10:16 AM EDT SCANNED LABS 10/12/2012 5:19 PM EDT SCANNED RADIOLOGY REPORT 09/23/2012 3:07 PM EDT NM MYOCARDIAL PERFUSION SPECT STRESS AND REST Routine 09/22/2012 4:10 PM EDT HTN (hypertension) CAD (coronary artery disease) AMI inferior wall (HCC) Dyslipidemia MS (multiple sclerosis) (HCC) Smoker Post PTCA ST STRESS TEST LEXISCAN Routine 09/22/2012 3:30 PM EDT HTN (hypertension) CAD (coronary artery disease) AMI inferior wall (HCC) Dyslipidemia MS (multiple sclerosis) (HCC) Smoker Post PTCA HEPATIC FUNCTION PANEL Routine 09/22/2012 1:20 PM EDT HTN (hypertension) CAD (coronary artery disease) AMI inferior wall (HCC) Dyslipidemia MS (multiple sclerosis) (HCC) Smoker Post PTCA COMPREHENSIVE METABOLIC PANEL Routine 09/22/2012 1:20 PM EDT HTN (hypertension) CAD (coronary artery disease) AMI inferior wall (HCC) Dyslipidemia MS (multiple sclerosis) (HCC) Smoker Post PTCA EC ECHOCARDIOGRAM COMPLETE W DOPPLER AND COLOR FLOW MAPPING Routine 09/22/2012 1:04 PM EDT HTN (hypertension) CAD (coronary artery disease) AMI inferior wall (HCC) Dyslipidemia MS (multiple sclerosis) (HCC) Smoker Post PTCA LDL, CALCULATED Routine 09/22/2012 12:30 PM EDT VITAMIN D 25 HYDROXY Routine 09/22/2012 12:30 PM EDT HTN (hypertension) CAD (coronary artery disease) AMI inferior wall (HCC) Dyslipidemia MS (multiple sclerosis) (HCC) Smoker Post PTCA LIPID PANEL REFLEX Routine 09/22/2012 12:30 PM EDT HTN (hypertension) CAD (coronary artery disease) AMI inferior wall (HCC) Dyslipidemia MS (multiple sclerosis) (HCC) Smoker Post PTCA SCANNED LABS 05/27/2012 12:00 AM EST HEPATIC FUNCTION PANEL Routine 05/11/2012 2:37 PM EST Elevated LFTs ACUTE HEPATITIS PANEL Routine 05/11/2012 2:37 PM EST Elevated LFTs MRI CERVICAL SPINE W WO CONTRAST Routine 05/07/2012 2:39 PM EST MS (multiple sclerosis) (HCC) MRI BRAIN W WO CONTRAST Routine 05/07/2012 2:25 PM EST MS (multiple sclerosis) (HCC) LIPID SCREEN Routine 03/04/2012 8:31 AM EST CAD (coronary artery disease) ASPARTATE AMINOTRANSFERASE Routine 03/04/2012 8:31 AM EST CAD (coronary artery disease) ALANINE AMINOTRANSFERASE Routine 03/04/2012 8:31 AM EST CAD (coronary artery disease) POCT EKG Routine 01/29/2012 1:52 PM EDT CAD (coronary artery disease) COMPREHENSIVE METABOLIC PANEL Routine 01/21/2012 3:36 PM EDT HTN (hypertension) LIPID SCREEN Routine 01/21/2012 3:36 PM EDT Lipid screening XR CHEST PA AND LATERAL ANSHU 11/14/2011 6:52 AM EDT DIFFERENTIAL Routine 11/14/2011 6:23 AM EDT BASIC METABOLIC PANEL Routine 11/14/2011 6:23 AM EDT CBC WITH DIFF Routine 11/14/2011 6:23 AM EDT DIFFERENTIAL Early AM 11/13/2011 5:58 AM EDT CBC WITH DIFF Early AM 11/13/2011 5:58 AM EDT BASIC METABOLIC PANEL Early AM 11/13/2011 5:58 AM EDT LEGIONELLA ANTIGEN URINE Routine 11/12/2011 10:05 PM EDT STREP PNEUMO ANTIGEN Routine 11/12/2011 10:05 PM EDT UPPER RESPIRATORY CULTURE (NO STAIN) Routine 11/12/2011 4:45 PM EDT IP CONSULT TO PHARMACY Routine 11/12/2011 2:36 PM EDT POCT URINALYSIS DIPSTICK STAT 11/12/2011 10:45 AM EDT BLOOD CULTURE (NO STAIN) STAT 11/12/2011 10:32 AM EDT XR CHEST PA AND LATERAL ANSHU 11/12/2011 9:56 AM EDT DIFFERENTIAL STAT 11/12/2011 9:45 AM EDT TROPONIN-I STAT 11/12/2011 9:45 AM EDT LIPASE LEVEL STAT 11/12/2011 9:45 AM EDT HEPATIC FUNCTION PANEL STAT 11/12/2011 9:45 AM EDT BASIC METABOLIC PANEL STAT 11/12/2011 9:45 AM EDT CBC WITH DIFF STAT 11/12/2011 9:45 AM EDT BLOOD CULTURE (NO STAIN) STAT 11/12/2011 9:45 AM EDT EK EKG 12 LEAD STAT 11/12/2011 9:42 AM EDT XR ACUTE ABDOMEN SUPINE ERECT AND OR DECUBITUS W 1 VW CHEST ANSHU 10/15/2011 5:04 PM EDT US SCROTUM AND TESTICLES STAT 10/15/2011 4:25 PM EDT URINALYSIS STAT 10/15/2011 4:25 PM EDT .CHL/GC URINE RESULTS Routine 10/15/2011 4:25 PM EDT DIFFERENTIAL STAT 10/15/2011 3:57 PM EDT LIPASE LEVEL STAT 10/15/2011 3:57 PM EDT COMPREHENSIVE METABOLIC PANEL STAT 10/15/2011 3:57 PM EDT CBC WITH DIFF STAT 10/15/2011 3:57 PM EDT POCT URINALYSIS DIPSTICK Routine 10/15/2011 3:26 PM EDT URINALYSIS Routine 08/16/2010 11:53 AM EDT DM w/o complication type II (HCC) Unspecified hereditary and idiopathic peripheral neuropathy Other postablative hypothyroidism URINE CULTURE (NO STAIN) Routine 08/16/2010 11:53 AM EDT DM w/o complication type II (HCC) Unspecified hereditary and idiopathic peripheral neuropathy Other postablative hypothyroidism LIPID SCREEN Routine 08/11/2010 11:41 AM EDT DM w/o complication type II (HCC) Unspecified hereditary and idiopathic peripheral neuropathy Other postablative hypothyroidism PROTEIN ELECTROPHORESIS, SERUM Routine 08/11/2010 11:41 AM EDT DM w/o complication type II (HCC) Unspecified hereditary and idiopathic peripheral neuropathy Other postablative hypothyroidism T4, FREE (THYROXINE) Routine 08/11/2010 11:41 AM EDT DM w/o complication type II (HCC) Unspecified hereditary and idiopathic peripheral neuropathy Other postablative hypothyroidism THYROID STIMULATING HORMONE Routine 08/11/2010 11:41 AM EDT DM w/o complication type II (HCC) Unspecified hereditary and idiopathic peripheral neuropathy Other postablative hypothyroidism VITAMIN B1 (THIAMINE) WHOLE BLOOD -REF LAB Routine 08/11/2010 11:41 AM EDT DM w/o complication type II (HCC) Unspecified hereditary and idiopathic peripheral neuropathy Other postablative hypothyroidism VITAMIN B12 LEVEL Routine 08/11/2010 11:41 AM EDT DM w/o complication type II (HCC) Unspecified hereditary and idiopathic peripheral neuropathy Other postablative hypothyroidism COMPREHENSIVE METABOLIC PANEL Routine 08/11/2010 11:41 AM EDT DM w/o complication type II (HCC) Unspecified hereditary and idiopathic peripheral neuropathy Other postablative hypothyroidism HEMOGLOBIN A1C Routine 08/11/2010 11:41 AM EDT DM w/o complication type II (HCC) Unspecified hereditary and idiopathic peripheral neuropathy Other postablative hypothyroidism PROSTATE SPECIFIC ANTIGEN (SCREENING) Routine 08/11/2010 11:41 AM EDT DM w/o complication type II (HCC) Unspecified hereditary and idiopathic peripheral neuropathy Other postablative hypothyroidism CBC Routine 08/11/2010 11:41 AM EDT DM w/o complication type II (HCC) Unspecified hereditary and idiopathic peripheral neuropathy Other postablative hypothyroidism SCANNED LABS 07/23/2010 12:00 AM EDT POCT URINALYSIS DIPSTICK STAT 07/20/2010 10:05 PM EDT XR ACUTE ABDOMEN SUPINE ERECT AND OR DECUBITUS W 1 VW CHEST ANSHU 07/20/2010 8:53 PM EDT DIFFERENTIAL STAT 07/20/2010 8:30 PM EDT LIPASE LEVEL STAT 07/20/2010 8:30 PM EDT CBC WITH DIFF STAT 07/20/2010 8:30 PM EDT BASIC METABOLIC PANEL STAT 07/20/2010 8:30 PM EDT HEPATIC FUNCTION PANEL STAT 07/20/2010 8:30 PM EDT SCANNED LABS 01/08/2010 12:00 AM EDT XR CHEST PA AND LATERAL ANSHU 01/05/2010 9:48 PM EDT POCT URINALYSIS DIPSTICK Routine 01/05/2010 8:38 PM EDT DIFFERENTIAL STAT 01/05/2010 8:06 PM EDT COMPREHENSIVE METABOLIC PANEL STAT 01/05/2010 8:06 PM EDT LIPASE LEVEL Routine 01/05/2010 8:06 PM EDT CBC WITH DIFF STAT 01/05/2010 8:06 PM EDT SMEAR REVIEW STAT 01/05/2010 8:06 PM EDT SCANNED LABS 12/18/2009 12:00 AM EDT CREATINE KINASE STAT 12/17/2009 7:00 PM EDT SCANNED LABS 11/26/2009 12:00 AM EDT COMPREHENSIVE METABOLIC PANEL Routine 11/25/2009 12:29 PM EDT CBC Routine 11/25/2009 12:[address] HEAD ANTIQUER Routine 01/12/2009 4:[address] HEAD ANTIQUER Routine 10/04/2004 3:55 PM EDT Results * IRON+TIBC (10/11/2024 2:17 PM EDT) Only the most recent of2 resultswithin the time period is included. [facility] Signature Iron 99 50 - 170 mcg/dL 10/11/2024 6:55 PM EDT [facility] [employer] [facility] [employer] Transferrin 277 200 - 360 mg/dL 10/11/2024 6:55 PM EDT [facility] Transferrin Saturation 26 20 - 50 % 10/11/2024 6:55 PM EDT [facility] TIBC 388 250 - 400 mcg/dL 10/11/2024 6:55 PM EDT [facility] Blood VENOUS BLOOD / Unknown Venipuncture / Unknown 10/11/2024 2:17 PM EDT 10/11/2024 2:18 PM EDT us Feliciano Tierney MD CHEMISTRY ORDERABLES Final Resu lt [facility], [facility] [address] [facility], [address] [place] [id number] * (ABNORMAL) CBC WITH DIFF (10/11/2024 2:17 PM EDT) Only the most recent of16 resultswithin the time period is included. WBC 3.2(L) 3.7 - 10.3 x10(3)/mcL 10/11/2024 2:23 PM EDT [facility] RBC 5.30 4.60 - 6.10 x10(6)/mcL 10/11/2024 2:23 PM EDT [facility] Hgb 14.8 13.7 - 17.5 g/dL 10/11/2024 2:23 PM EDT [facility] Hct 44.6 40.0 - 51.0 % 10/11/2024 2:23 PM EDT [facility] MCV 84.2 80.0 - 100.0 fL 10/11/2024 2:23 PM EDT [facility] MCH 27.9 26.0 - 34.0 pg 10/11/2024 2:23 PM EDT [facility] MCHC 33.2 30.7 - 35.5 g/dL 10/11/2024 2:23 PM EDT [facility] RDW 16.3(H) <=14.9 % 10/11/2024 2:23 PM EDT [facility] Platelet 108(L) 155 - 369 x10(3)/[facility] 10/11/2024 2:23 PM EDT [facility] MPV 10.0 8.8 - 12.5 fL 10/11/2024 2:23 PM EDT [facility] Neut Percent 61.0 % 10/11/2024 2:23 PM EDT [facility] Comment:Neutrophils equals s egs plus bands Imm Gran% 0.0 % 10/11/2024 2:23 PM EDT [facility] Comment:Automated count of m etamyelocytes, myelocytes and promyelocytes. Lymph Percent 22.0 % 10/11/2024 2:23 PM EDT [facility] [place] Percent 13.0 % 10/11/2024 2:23 PM EDT [facility] Eos Percent 3.1 % 10/11/2024 2:23 PM EDT [facility] Baso Percent 0.9 % 10/11/2024 2:23 PM EDT [facility] Neut # 2.0 1.6 - 6.1 x10(3)/[facility] 10/11/2024 2:23 PM EDT [facility] Comment:Neutrophils equals s egs plus bands IMMGRAN# 0.0 0.0 - 0.1 x10(3)/[facility] 10/11/2024 2:23 PM EDT [facility] Comment:Automated count of m etamyelocytes, myelocytes and promyelocytes. An absolute IG <0.1 is reported as 0.0. Lymph # 0.7(L) 1.2 - 3.9 x10(3)/[facility] 10/11/2024 2:23 PM EDT [facility] [place] # 0.4 0.3 - 0.9 x10(3)/[facility] 10/11/2024 2:23 PM EDT [facility] Eos# 0.1 0.0 - 0.5 x10(3)/[facility] 10/11/2024 2:23 PM EDT [facility] Baso # 0.0 0.0 - 0.1 x10(3)/[facility] 10/11/2024 2:23 PM EDT [facility] Blood VENOUS BLOOD / Unknown Venipuncture / Unknown 10/11/2024 2:17 PM EDT 10/11/2024 2:18 PM EDT Feliciano Tierney MD HEMATOLOGY ORDERABLES Final Res ult Performing Organization Address [facility]/ZIP Co de Phone Number [facility] [address] [place], [place] [id number] * FERRITIN (10/11/2024 2:17 PM EDT) Only the most recent of2 resultswithin the time period is included. Pathologist [facility] Ferritin 37 30 - 400 ng/mL 10/11/2024 6:55 PM EDT [facility]REFERRED [facility] Blood VENOUS BLOOD / Unknown Venipuncture / Unknown 10/11/2024 2:17 PM EDT 10/11/2024 2:18 PM EDT Narrative [facility] - 10/11/2024 6:55 PM EDT Ingestion of judith doses of biotin (>5 mg/day) taken within 8 hours of drawing blood sample can interfere with this immunoassay test. Feliciano Tierney MD CHEMISTRY ORDERABLES Final Resu lt Performing Organization Address [facility] Co de Phone Number [facility] [address] [place] [address] , [address] [place] [id number] * (ABNORMAL) COMPREHENSIVE METABOLIC PANEL (10/11/2024 2:17 PM EDT) Only the most recent of17 resultswithin the time period is included. Pathologist [facility] Sodium 139 136 - 145 mmol/L 10/11/2024 2:37 PM EDT [facility] Potassium 4.4 3.5 - 5.0 mmol/L 10/11/2024 2:37 PM EDT [facility] Chloride 103 98 - 107 mmol/L 10/11/2024 2:37 PM EDT [facility] Total CO2 27 22 - 29 mmol/L 10/11/2024 2:37 PM EDT [facility] Anion Gap 9 7 - 16 mmol/L 10/11/2024 2:37 PM EDT [facility] Calcium 9.2 8.8 - 10.4 mg/dL 10/11/2024 2:37 PM EDT [facility] Glucose Lvl 123(H) 70 - 99 mg/dL 10/11/2024 2:37 PM EDT [facility] BUN 10 8 - 23 mg/dL 10/11/2024 2:37 PM EDT [facility] Creatinine 1.00 0.67 - 1.30 mg/dL 10/11/2024 2:37 PM EDT [facility] Albumin 4.0 3.2 - 4.6 gm/dL 10/11/2024 2:37 PM EDT [facility] Total Protein 7.4 6.4 - 8.3 gm/dL 10/11/2024 2:37 PM EDT [facility] Bili Total 0.9 0.2 - 1.4 mg/dL 10/11/2024 2:37 PM EDT [facility] ALT 33 <=41 U/L 10/11/2024 2:37 PM EDT [facility] AST 38 <=40 U/L 10/11/2024 2:37 PM EDT [facility] Alk Phos 119 40 - 129 U/L 10/11/2024 2:37 PM EDT [facility] eGFR (CKD-EPIcr 2020) 85 >=60 mL/min/1.7 3 m2 10/11/2024 2:37 PM EDT [facility] Comment:Estimated GFR was ca lculated using the CKD-EPIcr (2020) equation refit without race. The equation is recommended by the [employer] - [place] [employer] Nephrology Task Force. Blood VENOUS BLOOD / Unknown Venipuncture / Unknown 10/11/2024 2:17 PM EDT 10/11/2024 2:18 PM EDT us Feliciano Tierney MD CHEMISTRY ORDERABLES Final Resu lt [facility] [address] [place] [address] * MRI BRAIN W WO CONTRAST (09/15/2024 8:41 AM EDT) Only the most recent of3 resultswithin the time period is included. Anatomical Region Laterality Modality Head Magnetic Resonan ce 09/15/2024 8:41 AM EDT Impressions 09/15/2024 9:07 AM EDT * No evidence of abnormal enhancement to suggest active demyelination. * Moderate progression of nonacute demyelination in the LEFT occipital lobe and LEFT parietal lobe compared to May 24, 2016. * Faint diffusion restriction regional to the new area of nonacute demyelination adjacent to the LEFT occipital horn. This is compatible with subacute demyelination. - Note: Radiology results need to be interpreted within a comprehensive clinical context. If you have questions about the radiology report, please contact the office of the ordering clinician. Narrative 09/15/2024 9:07 AM EDT MRI BRAIN W WO CONTRAST 09/15/2024 8:41 AM CLINICAL HISTORY: J08-Owftacvr sclerosis (HCC)-ICD-10-CM R41.89-Other symptoms and signs involving cognitive functions and [id number]-CM. COMPARISON: May 24, 2016 PROCEDURE COMMENTS: Multiplanar multiecho MR imaging of the brain per protocol before and following IV contrast administration. Gadolinium contrast given as recorded in Epic. FINDINGS: Mild to moderate motion degradation of the examination is noted. No abnormal enhancement to suggest active demyelination. Based on FLAIR imaging sequences, the pattern of chronic demyelination is similar to May 24, 2016. There is moderate progression of nonacute demyelination in the region of the LEFT occipital horn. There has also been some enlargement in the zone of chronic demyelination within the white matter of the LEFT parietal lobe. Remaining areas of chronic demineralization appear grossly stable to the preceding study. On diffusion-weighted imaging, there is faint hyperintensity regional to the new area of nonacute demyelination adjacent to the LEFT occipital horn. On the ADC map, the signal is elevated. I suspect this reflects a zone of subacute demyelination. No hemorrhage or mass lesion. Included portions of the paranasal sinuses, mastoids, and orbits unremarkable. Procedure Note Alfonso Lai MD - 09/15/2024 MRI BRAIN W WO CONTRAST 09/15/2024 8:41 AM CLINICAL HISTORY: M44-Obcnmlsc sclerosis (HCC)-ICD-10-CM R41.89-Other symptoms and signs involving cognitive functions and [id number]-CM. COMPARISON: May 24, 2016 PROCEDURE COMMENTS: Multiplanar multiecho MR imaging of the brain perprotocol before and following IV contrast administration. Gadolinium contrast givenas recorded in Epic. FINDINGS: Mild to moderate motion degradation of the examination isnoted. No abnormal enhancement to suggest active demyelination. Based on FLAIR imaging sequences, the pattern of chronic demyelinationis similar to May 24, 2016. There is moderate progression of nonacute demyelination in the region ofthe LEFT occipital horn. There has also been some enlargement in the zone of chronic demyelinationwithin the white matter of the LEFT parietal lobe. Remaining areas of chronic demineralization appear grossly stable to the preceding study. On diffusion-weighted imaging, there is faint hyperintensity regional tothe new area of nonacute demyelination adjacent to the LEFT occipital horn. On theADC map, the signal is elevated. I suspect this reflects a zone of subacute demyelination. No hemorrhage or mass lesion. Included portions of the paranasal sinuses, mastoids, and orbitsunremarkable. IMPRESSION: * No evidence of abnormal enhancement to suggest active demyelination. * Moderate progression of nonacute demyelination in the LEFT occipitallobe and LEFT parietal lobe compared to May 24, 2016. * Faint diffusion restriction regional to the new area of nonacute demyelination adjacent to the LEFT occipital horn. This is compatiblewith subacute demyelination. - Note: Radiology results need to be interpreted within a comprehensiveclinical context. If you have questions about the radiology report, please contactthe office of the ordering clinician. David Chu MD [facility] MRI ORDERABLES Final Re sult * HIV AG/AB (08/09/2024 12:57 PM EDT) HIV Ag/AB Non-Reacti ve Non-Reacti ve 08/09/2024 4:52 PM EDT [facility] Comment:Negative for HIV-1 a ntigen and anti-HIV-1/anti-HIV-2 antibodies. Blood VENOUS BLOOD / Unknown Venipuncture / Unknown 08/09/2024 12:57 PM EDT 08/09/2024 12:59 PM EDT Narrative PREFERRED [employer] [facility] - 08/09/2024 4:52 PM EDT Test performed using Jose [employer] electrochemiluminescence immunassay (ECLIA). Rina Mathis APRN IMMUNOLOGY ORDERABLES [facility] Result Performing Organization Address [facility] Co de Phone Number [facility] , [place] [address] * VITAMIN B12/ FOLIC ACID (08/09/2024 12:57 PM EDT) Pathologist [facility] Vitamin B12 859 232 - 1,245 pg/mL 08/09/2024 4:52 PM EDT [facility] Folate >16.00 >=4.50 ng/mL 08/09/2024 4:52 PM EDT [facility] Blood VENOUS BLOOD / Unknown Venipuncture / Unknown 08/09/2024 12:57 PM EDT 08/09/2024 12:59 PM EDT Narrative [facility] - 08/09/2024 4:52 PM EDT Ingestion of judith doses of biotin (>5 mg/day) taken within 8 hours of drawing blood sample can interfere with this immunoassay test. Rina Mathis APRN CHEMISTRY ORDERABLES Final Result Performing Organization Address [facility] de Phone Number [facility] , [place] [address] * PERIPHERAL SMEAR/PATH REVIEW (08/09/2024 12:57 PM EDT) Pathologist [facility] Pathologist Review Peripheral blood smear reviewed at the request of the treating physician Blood smear review shows: - Thrombocytopeni a. - Normochromic normocytic anemia, negative for schistocytes. - Mild leukopenia with lymphocytopenia , negative for dysplasia and blasts. 08/10/2024 11:03 AM EDT [facility] Blood VENOUS BLOOD / Unknown Venipuncture / Unknown 08/09/2024 12:57 PM EDT 08/09/2024 12:59 PM EDT Rina Mathis MASTER CONTR[employer] SUPERVISOR HEMATOLOGY ORDERABLES [facility] Result [facility] [address] [place] [address] * (ABNORMAL) LIPID SCREEN (04/16/2019 1:51 PM EST) Only the most recent of12 resultswithin the time period is included. Cholesterol 177 <=200 mg/dL 04/16/2019 8:07 PM EST [employer] [facility] Comment: < 200 Desirable 200 - 239 Borderline High >= 240 High Triglyceride 257(H) <=150 mg/dL 04/16/2019 8:07 PM EST [facility] Comment: < 150 Normal 150 - 199 Borderline High 200 - 499 High >= 500 Very High HDL 41 >=40 mg/dL 04/16/2019 8:07 PM EST [facility] Comment: > 60 Optimal 40 - 60 Acceptable < 40 Low LDL Calculated 85 <=100 mg/dL 04/16/2019 8:07 PM EST [facility] Comment: < 100 Optimal 100 - 129 Near or above optimal 130 - 159 Borderline High 160 - 189 High >= 190 Very High Non-HDL-C Calculated 136(H) <=129 mg/dL 04/16/2019 8:07 PM EST [facility] Comment: <130 Desirable 130-159 Above Desirable 160-189 Borderline High 190-219 High >= 220 Very High Fasting Specimen? No None 019 8:07 PM EST [facility] Blood VENOUS BLOOD / Unknown Venipuncture / Unknown 04/16/2019 1:51 PM EST 04/16/2019 1:51 PM EST Shakeel Edgar MD CHEMISTRY ORDERABLES Fi nal Result Performing Organization Address City/[facility]/ZIP Co de Phone Number [facility] [address] [facility], [place] [address] * TSH REFLEX (06/23/2018 7:53 AM EST) Only the most recent of3 resultswithin the time period is included. TSH Reflex 2.510 0.270 - 4.200 mcIU/mL 06/23/2018 2:22 PM EST [facility] Blood Venipuncture / Unknown 06/23/2018 7:53 AM EST 06/23/2018 7:53 AM EST Narrative [facility] - 06/23/2018 2:22 PM EST Ingestion of judith doses of biotin (>5 mg/day) taken within 8 hours of drawing blood sample can interfere with this immunoassay test. Shakeel Edgar MD CHEMISTRY ORDERABLES Fi nal Result [facility] [address], [place] [address] * PATHOLOGY TISSUE REQUEST (07/29/2017 12:20 PM EDT) CASE REPORT Surgical Pathology Case: [id number] Authorizing Provider: Wolfgang Thomas MD PHD Collected: 07/29/2017 1220 Ordering Location: [facility] Received: 07/29/2017 1949 Pathologist: Parveen Ventura MD Specimens: A) - Large Intestine, Right/Ascendin g Colon, ascending colon polyp hot snare B) - Large Intestine, Transverse Colon, transverse colon polyps biopsy C) - Large Intestine, Sigmoid Colon, sigmoid colon polyps hot snare and biopsy 07/30/2017 10:23 AM EDT [facility] FINAL DIAGNOSIS A) Ascending Colon Polyp, Hot Snare: - Tubular Adenoma, Negative For High-Grade Dysplasia. B) Transverse Colon Polyp: - Tubular Adenoma, Negative For High-Grade Dysplasia. C) Sigmoid Colon Polyp, Biopsy and Hot Snare: - Sessile Serrated Polyp, Negative For High-Grade Dysplasia. 07/30/2017 10:23 AM EDT [facility] at 1023 EDT GROSS DESCRIPTION The specimen is received in three parts, each in formalin labeled with the patient's name. Part A) Is designated ascending colon polyp, hot snare and is two polypoid portions of alfredo soft tissue 0.3 to 0.4 cm in greatest dimension. Entirely submitted in one cassette. / CDM Part B) Is designated transverse colon polyp biopsy and is two polypoid portions of alfredo soft tissue 0.2 to 0.3 cm in greatest dimension. Entirely submitted in one cassette. / CDM Part C) Is designated sigmoid colon polyps, hot snare and biopsy and is three polypoid portions of alfredo soft tissue 0.3 to 0.6 cm in greatest dimension. Entirely submitted in one cassette. / CDM 07/30/2017 10:23 AM EDT [facility] MICROSCOPIC DESCRIPTION Microscopic examination is performed and the findings corroborate the diagnosis. 07/30/2017 10:23 AM EDT [facility] EMBEDDED IMAGES 07/30/2017 10:23 AM EDT [facility] Tissue ASCENDING COLON STRUCTURE / Unknown 07/29/2017 12:20 PM EDT 07/29/2017 7:49 PM EDT Tissue specimen (specimen) TRANSVERSE COLON STRUCTURE / Unknown 07/29/2017 12:20 PM EDT 07/29/2017 7:49 PM EDT Tissue specimen (specimen) SIGMOID COLON STRUCTURE / Unknown 07/29/2017 12:36 PM EDT 07/29/2017 7:49 PM EDT Wolfgang Thomas MD PHD PATHOLOGY ORDERABLES Final Result [facility] [address] [place], [place] [id number] [place] [address] * GMED COLONOSCOPY (07/29/2017 10:30 AM EDT) 07/29/2017 10:3 0 AM EDT Impressions [facility] - 07/29/2017 12:44 PM EDT Polyps (5 mm to 6 mm) in the ascending colon. (Polypectomy). Polyps (3 mm to 6 mm) in the transverse colon. (Biopsy). Mild diverticulosis of the sigmoid colon. Polyps (3 mm to 8 mm) in the sigmoid colon. Internal hemorrhoids. Plan: Follow up pathology results. If you do not receive pathology results within 2 weeks, please call our office for findings and final recommendations. Colonoscopy in 3 or 5 years depending on pathology results. This section is an excerpt of the full report. Wolfgang Thomas MD PHD GI PROCEDURE ORDERABLES Fin al Result Performing Organization Address [facility] Co de Phone Number [facility] [address] [place] [address] * (ABNORMAL) ALANINE AMINOTRANSFERASE (07/28/2017 3:10 PM EDT) Only the most recent of4 resultswithin the time period is included. ALT 142(H) <=41 IU/L 07/28/2017 3:40 PM EDT [facility] Blood Venipuncture / Unknown 07/28/2017 3:10 PM EDT 07/28/2017 3:10 PM EDT Srini Lynch MD CHEMISTRY ORDERABLES Final Result Performing Organization Address [facility] de Phone Number [facility] [address] [place] [address] * (ABNORMAL) ASPARTATE AMINOTRANSFERASE (07/28/2017 3:10 PM EDT) Only the most recent of4 resultswithin the time period is included. AST 120(H) <=40 IU/L 07/28/2017 3:40 PM EDT [facility] Blood Venipuncture / Unknown 07/28/2017 3:10 PM EDT 07/28/2017 3:10 PM EDT Srini Lynch MD CHEMISTRY ORDERABLES Final Result Performing Organization Address [facility] de Phone Number [facility] [address] [place] [address] * (ABNORMAL) HM FIT (05/30/2017) Occult Blood 2 postivie [facility] Comment:positive 05/30/2017 Historical Provider HEALTH MAINTENANCE Final Res ult Performing Organization Address [facility] Co de Phone Number [facility] * US RIGHT UPPER QUADRANT (03/24/2017 8:11 AM EST) Anatomical Region Laterality Modality Abdomen Ultrasound 03/24/2017 8:11 AM EST Impressions 03/24/2017 8:40 AM EST Poor visualization of pancreatic tail. Benign simple cyst in the upper pole of the right kidney measuring 1.7 cm. Otherwise negative. Narrative 03/24/2017 8:40 AM EST PROCEDURE: RIGHT UPPER QUADRANT ULTRASOUND, 03/24/2017 8:11 AM INDICATIONS: Elevated LFTs. FINDINGS: Right upper quadrant ultrasound. The gallbladder is normal in appearance. There is no wall thickening, stones, or pericholecystic fluid. Negative sonographic Perez's sign. The liver is normal in echogenicity and homogeneous in appearance. There is no intra or extrahepatic biliary dilatation. The common duct measures 4 mm. Views of the pancreas are unremarkable. Pancreatic tail was not well seen. The right kidney shows no hydronephrosis and measures 10.5 cm in length. There is a 1.7 cm simple cyst in the upper pole of the right kidney.. Procedure Note Ounr White MD - 03/24/2017 PROCEDURE: RIGHT UPPER QUADRANT ULTRASOUND, 03/24/2017 8:11 AM INDICATIONS: Elevated LFTs. FINDINGS: Right upper quadrant ultrasound. The gallbladder is normal in appearance. There is no wall thickening,stones, or pericholecystic fluid. Negative sonographic Perez's sign. The liver is normal in echogenicity and homogeneous in appearance. Thereis no intra or extrahepatic biliary dilatation. The common duct measures 4 mm. Views of the pancreas are unremarkable. Pancreatic tail was not well seen.The right kidney shows no hydronephrosis and measures 10.5 cm in length. Thereis a 1.7 cm simple cyst in the upper pole of the right kidney.. IMPRESSION: Poor visualization of pancreatic tail. Benign simple cyst in the upper pole of the right kidney measuring 1.7 cm. Otherwise negative. Shakeel Edgar MD [facility] US ORDERABLES Final Result * FECAL HEME SCREEN (03/19/2017 2:47 PM EST) Fecal Heme Scrn Negative Negative 03/20/2017 10:00 AM EST [facility] Stool COLON STRUCTURE / Unknown 03/19/2017 2:47 PM EST 03/19/2017 2:47 PM EST us Shakeel Edgar MD IMMUNOLOGY ORDERABLES F inal Result Performing Organization Address City/[facility]/ZIP Co de Phone Number [facility] [address] [place] [address] * HEPATITIS C ANTIBODY - SCREENING (02/21/2017 9:08 AM EDT) [facility] Hep C Ab Negative Negative 02/21/2017 3:46 PM EDT [facility] Blood VENOUS BLOOD / Unknown Venipuncture / Unknown 02/21/2017 9:08 AM EDT 02/21/2017 9:08 AM EDT us David Chu MD HEMATOLOGY ORDERABLES Final Result Performing Organization Address [facility] [place] [place] [address] * (ABNORMAL) VITAMIN D 25 HYDROXY (02/21/2017 9:08 AM EDT) Only the most recent of3 resultswithin the time period is included. [facility] Vit D 25 OH 25.0(L) 30.0 - 120.0 ng/mL 02/21/2017 6:06 PM EDT [facility] Comment: INTERPRETIVE INFORMATION: Vitamin D, 25-Hydroxy <20 ng/mL Deficiency 20 - 29 ng/mL Insufficiency 30 - 80 ng/mL Optimum Level >120 ng/mL Possible Toxicity NOTE: For infants and children up to 17 years of age, the optimum level is >=20 ng/mL. This assay accurately quantifies the sum of vitamin D3, 25-Hydroxy and vitamin D2, 25-Hydroxy. Blood VENOUS BLOOD / Unknown Venipuncture / Unknown 02/21/2017 9:08 AM EDT 02/21/2017 9:08 AM EDT us David Chu MD CHEMISTRY ORDERABLES Final Result Performing Organization Address [facility] Co de Phone Number [facility] [address] [place] [address] * (ABNORMAL) HEPATIC FUNCTION PANEL (02/21/2017 9:08 AM EDT) Only the most recent of7 resultswithin the time period is included. Total Protein 7.6 6.4 - 8.3 gm/dL 02/21/2017 10:00 AM EDT [facility] Albumin 3.9 3.5 - 5.2 gm/dL 02/21/2017 10:00 AM EDT [facility] Bili Direct 0.3 0.0 - 0.3 mg/dL 02/21/2017 10:00 AM EDT [facility] Bili Total 0.8 0.1 - 1.4 mg/dL 02/21/2017 10:00 AM EDT [facility] AST 103(H) <=40 IU/L 02/21/2017 10:00 AM EDT [facility] ALT 121(H) <=41 IU/L 02/21/2017 10:00 AM EDT [facility] Alk Phos 114 40 - 129 IU/L 02/21/2017 10:00 AM EDT [facility] Blood VENOUS BLOOD / Unknown Venipuncture / Unknown 02/21/2017 9:08 AM EDT 02/21/2017 9:08 AM EDT us David Chu MD CHEMISTRY ORDERABLES Final Result Performing Organization Address City/State/[facility] Co de Phone Number [facility] [address] [place], [place] [id number] * MRI CERVICAL SPINE W WO CONTRAST (05/24/2016 9:27 AM EST) Only the most recent of2 resultswithin the time period is included. Anatomical Region Laterality Modality C-spine Magnetic Resonan ce 05/24/2016 9:27 AM EST Impressions 05/24/2016 10:49 AM EST 1. Stable small chronic plaques in the cervical cord at C2/C3 and C3/C4. 2. No abnormal enhancement to suggest active demyelination. 3. Progression of disc degeneration at C5/C6. Developing proximal LEFT foraminal narrowing. Narrative 05/24/2016 10:49 AM EST MRI CERVICAL SPINE W WO CONTRAST 05/24/2016 9:27 AM CLINICAL HISTORY: [id number]-12-CM R20.2-Paresthesia of vhjo-QWR-70-CM COMPARISON: May 07, 2012 PROCEDURE COMMENTS: Multiplanar multiecho MR imaging of the region of interest. 15 cc MultiHance given FINDINGS: Stable tiny and subtle areas of cord signal alteration is identified on the May 07, 2012 study. No new area of signal change. C2/C3: Mild degenerative changes. No neural impingement. C3/C4: Moderate disc bulging with peridiscal spurring, slightly progressed compared with prior imaging. Mild RIGHT foraminal narrowing. C4/C5: Mild degenerative changes. Mild bilateral foraminal narrowing. C5/C6: Progression of posterior and LEFT posterolateral discosteophyte protrusion with mild ventral cord flattening and LEFT proximal foraminal narrowing. Mild RIGHT foraminal narrowing is stable. C6/C7: Mild degenerative changes. No neural impingement. C7/T1: Mild degenerative changes no neural impingement. T1/T2: Posterior disc bulging. No neural impingement. Procedure Note Alfonso Lai MD - 05/24/2016 MRI CERVICAL SPINE W WO CONTRAST 05/24/2016 9:27 AM CLINICAL HISTORY: [id number] [id number]-92-CM R20.2-Paresthesia of cepr-EWB-61-CM COMPARISON: May 07, 2012 PROCEDURE COMMENTS: Multiplanar multiecho MR imaging of the region ofinterest. 15 cc MultiHance given FINDINGS: Stable tiny and subtle areas of cord signal alteration isidentified on the May 07, 2012 study. No new area of signal change. C2/C3: Mild degenerative changes. No neural impingement. C3/C4: Moderate disc bulging with peridiscal spurring, slightlyprogressed compared with prior imaging. Mild RIGHT foraminal narrowing. C4/C5: Mild degenerative changes. Mild bilateral foraminal narrowing. C5/C6: Progression of posterior and LEFT posterolateral discosteophyte protrusion with mild ventral cord flattening and LEFT proximal foraminal narrowing. Mild RIGHT foraminal narrowing is stable. C6/C7: Mild degenerative changes. No neural impingement. C7/T1: Mild degenerative changes no neural impingement. T1/T2: Posterior disc bulging. No neural impingement. IMPRESSION: 1. Stable small chronic plaques in the cervical cord at C2/C3 andC3/C4. 2. No abnormal enhancement to suggest active demyelination. 3. Progression of disc degeneration at C5/C6. Developing proximal LEFT foraminal narrowing. us David Chu MD IMG MRI ORDERABLES Final Re sult * CREATINE KINASE (05/24/2016 8:08 AM EST) Only the most recent of3 resultswithin the time period is included. CK 86 39 - 308 IU/L [facility] Blood specimen (specimen) UPPER LIMB STRUCTURE / Unknown 05/24/2016 8:08 AM EST 05/24/2016 8:08 AM EST us David Chu MD CHEMISTRY ORDERABLES Final Result Performing Organization Address City/[facility]/ZIP Co de Phone Number [facility] [address] [place] [address] * CBC (10/28/2014 7:28 AM EDT) Only the most recent of5 resultswithin the time period is included. WBC 7.7 4.0 - 11.0 x10(3)/mcL [facility] RBC 5.34 4.30 - 5.81 x10(6)/mcL [facility] Hgb 16.5 13.5 - 17.1 gm/dL [facility] Hct 47.7 38.9 - 51.6 % [facility] MCV 89.3 82.5 - 99.8 fL [facility] MCH 30.8 27.0 - 34.3 pg [facility] MCHC 34.5 32.1 - 35.3 gm/dL [facility] RDW 13.4 11.5 - 15.0 % [facility] Platelet 260 144 - 423 x10(3)/mcL [facility] MPV 8.4 6.8 - 10.8 fL [facility] Blood specimen (specimen) UPPER LIMB STRUCTURE / Unknown 10/28/2014 7:28 AM EDT 10/28/2014 7:28 AM EDT Alexa Pinto APRN HEMATOLOGY ORDERABLES Final Result [facility] [address] [place] [address] * SCANNED EKG (10/09/2014 3:24 PM EDT) Anatomical Region Laterality Modality Other 10/09/2014 3:24 PM EDT us Unknown Unknown IMG ECG ORDERABLES Final Result * SCANNED RHYTHM STRIPS (10/09/2014 3:24 PM EDT) Only the most recent of7 resultswithin the time period is included. Anatomical Region Laterality Modality Other 10/09/2014 3:24 PM EDT us Unknown Unknown IMG ECG ORDERABLES Final Result * EK EKG 12 LEAD (10/06/2014 8:58 AM EDT) Only the most recent of9 resultswithin the time period is included. Anatomical Region Laterality Modality Electrocardiogra phy 10/06/2014 12:0 6 AM EDT Impressions 10/06/2014 11:08 AM EDT Stationary ECG Study [facility] Interpretive Statements SINUS TACHYCARDIA INDETERMINATE AXIS possible INFERIOR MYOCARDIAL INFARCTION, PROBABLY OLD No prior studies available for comparison abnormal ECG Electronically Signed On 2014-10-06 11:08:57 EDT by Teofilo Nuno MD Narrative Procedure Note Teofilo Nuno MD - 10/06/2014 IMPRESSION Stationary ECG Study [facility] Interpretive Statements SINUS TACHYCARDIA INDETERMINATE AXIS possible INFERIOR MYOCARDIAL INFARCTION, PROBABLY OLD No prior studies available for comparison abnormal ECG Electronically Signed On 2014-10-06 11:08:57 EDT by Teofilo Nuno MD us Delisa Cool MD IMG ECG ORDERABLES Final Res ult * AMMONIA LEVEL (10/06/2014 2:01 AM EDT) Ammonia 36 16 - 60 mcmol/L [facility] Blood specimen (specimen) UPPER LIMB STRUCTURE / Unknown 10/06/2014 2:01 AM EDT 10/06/2014 2:01 AM EDT Delisa Cool MD CHEMISTRY ORDERABLES Final R esult Performing Organization Address City/[facility]/ZIP Co de Phone Number [facility] [address] [place] [address] * (ABNORMAL) DRUG SCREEN RAPID PANEL, URINE (GRT,COV ONLY) (10/06/2014 12:35 AM EDT) Tricyclic Rapid Absent 300 ng/mL [facility] Barbiturate Rapid Absent 200 ng/mL [facility] Methadone Rapid Absent 300 ng/mL [facility] Benzodiazepines Rapid Absent 300 ng/mL [facility] Cannabinoid Rapid Present(A) 50 ng/mL [facility] Opiate Rapid Absent 300 ng/mL [facility] Amphetamine Rapid Absent 1000 ng/mL [facility] Cocaine Rapid Absent 300 ng/mL [facility] Propoxyphene Rapid Absent 300 ng/mL [facility] Methamphetamine Rapid Absent 1500 ng/mL [facility] Rapid DS Note These drug classes have been screened by immunoassay and are for medical purposes only. The results should not be used for non-medical purposes. If confirmation is desired, please place a separate order for each drug confirmation. Specimens will be saved for 3 business days should additional orders/testing be desired. [facility] Urine specimen (specimen) URINARY BLADDER STRUCTURE / Unknown 10/06/2014 12:35 AM EDT 10/06/2014 12:38 AM EDT Delisa Cool MD URINE ORDERABLES Final Resul t Performing Organization Address City/[facility]/ZIP Co de Phone Number [facility] [address] [place] [address] * URINALYSIS (10/06/2014 12:35 AM EDT) Only the most recent of4 resultswithin the time period is included. UA Color Yellow [facility] UA Appear Clear Clear [facility] UA Glucose Negative Negative [facility] UA Ketones Negative Negative [facility] UA Blood Negative Negative [facility] UA pH 6.5 5.0 - 8.0 [facility] Comment:Reference range lux d for random specimens only. UA Protein Negative Negative [facility] UA Urobilinogen 0.2 E.U./dL <=1 E.U./dL LAB UA Nitrite Negative Negative [facility] UA Leuk Est Negative Negative [facility] UA Spec Grav 1.015 [facility] Comment:Reference range lux d for random specimens only. Urine specimen (specimen) URINARY BLADDER STRUCTURE / Unknown 10/06/2014 12:35 AM EDT 10/06/2014 12:38 AM EDT Delisa Cool MD URINE ORDERABLES Final Resul t Performing Organization Address City/[facility] Co de Phone Number [facility] [address] [place] [address] * URINE CULTURE (10/06/2014 12:35 AM EDT) Only the most recent of2 resultswithin the time period is included. Final No growth at 2 days. [facility] Urine specimen (specimen) URINARY BLADDER STRUCTURE / Unknown 10/06/2014 12:35 AM EDT 10/06/2014 7:34 AM EDT Delisa Cool MD MICROBIOLOGY - GENERAL ORDER GAETANO Final Result Performing Organization Address [facility] de Phone Number [facility] [address] [place] [address] * XR CHEST AP PORTABLE (10/05/2014 11:44 PM EDT) Only the most recent of2 resultswithin the time period is included. Anatomical Region Laterality Modality Chest Radiographic Fifi ging 10/05/2014 11:2 2 PM EDT Impressions 10/05/2014 11:50 PM EDT IMPRESSION: No active disease. Narrative 10/05/2014 11:50 PM EDT XR CHEST AP PORTABLE Oct 05, 2014 11:45:04 PM History: -ams Comparison: 06/26/2014 Lungs are clear. The heart and mediastinum are normal. Procedure Note Sukumar Flynn MD - 10/05/2014 XR CHEST AP PORTABLE Oct 05, 2014 11:45:04 PM History: -ams Comparison: 06/26/2014 Lungs are clear. The heart and mediastinum are normal. IMPRESSION: No active disease. Delisa Cool MD [facility] DIAGNOSTIC IMAGING ORDER GAETANO Final Result * CT HEAD WO CONTRAST (10/05/2014 11:41 PM EDT) Anatomical Region Laterality Modality Head Computed Tomogra phy 10/05/2014 11:2 2 PM EDT Impressions 10/05/2014 11:49 PM EDT IMPRESSION: No acute finding Narrative 10/05/2014 11:[address] HEAD WO CONTRAST 10/05/2014 HISTORY: Multiple sclerosis, mental status change COMPARISON: January 042008 Ventricles, sulci, cisterns are unremarkable. No hemorrhage or infarct. No mass or mass effect. No obvious focal white matter lesions are visualized. Procedure Note Sukumar Flynn MD - 10/05/2014 CT HEAD WO CONTRAST 10/05/2014 HISTORY: Multiple sclerosis, mental status change COMPARISON: January 042008 Ventricles, sulci, cisterns are unremarkable. No hemorrhage or infarct. Nomass or mass effect. No obvious focal white matter lesions are visualized. IMPRESSION: No acute finding Delisa Cool MD [facility] CT ORDERABLES Final Resu lt * (ABNORMAL) DIFFERENTIAL (10/05/2014 11:35 PM EDT) Only the most recent of12 resultswithin the time period is included. Neut Percent 80.4 % [facility] Lymph Percent 13.2 % [facility] [place] Percent 5.0 % [facility] Eos Percent 0.4 % [facility] Baso Percent 1.0 % [facility] Neut# 12.0(H) 1.8 - 7.7 x10(3)/mcL [facility] Lymph# 2.0 0.6 - 4.8 x10(3)/mcL [facility] [place]# 0.7 0.0 - 1.3 x10(3)/mcL [facility] Eos# 0.1 0.0 - 0.5 x10(3)/mcL [facility] Baso# 0.1 0.0 - 0.2 x10(3)/mcL [facility] Blood specimen (specimen) 10/05/2014 11:35 PM EDT 10/05/2014 11:35 PM EDT us Delisa Cool MD HEMATOLOGY ORDERABLES Final Result Performing Organization Address [facility] Co de Phone Number [facility] [address] [place] [address] * BLOOD CULTURE (10/05/2014 11:35 PM EDT) Only the most recent of4 resultswithin the time period is included. Final No growth at 5 days. [facility] Blood specimen (specimen) 10/05/2014 11:35 PM EDT 10/06/2014 3:53 AM EDT Delisa Cool MD MICROBIOLOGY - GENERAL ORDER GAETANO Final Result Performing Organization Address [facility] de Phone Number [facility] [address] [place] [address] * ALCOHOL MEDICAL (10/05/2014 11:35 PM EDT) Pathologist [facility] Alcohol Medical <10 <=10 mg/dL [facility] Blood specimen (specimen) UPPER LIMB STRUCTURE / Unknown 10/05/2014 11:35 PM EDT 10/05/2014 11:35 PM EDT Delisa Cool MD CHEMISTRY ORDERABLES Final R esult Performing Organization Address [facility] de Phone Number [facility] [address] [place] [address] * XR CHEST PA AND LATERAL (06/26/2014 2:55 PM EST) Only the most recent of5 resultswithin the time period is included. Anatomical Region Laterality Modality Chest Radiographic Fifi ging 06/26/2014 2:47 PM EST Impressions 06/26/2014 3:06 PM EST IMPRESSION: Possible early pneumonia in right midlung Short-term followup PA with lateral chest examination suggested if clinically warranted. Narrative 06/26/2014 3:06 PM EST XR CHEST PA AND LATERAL Jun 26, 2014 02:55:41 PM HISTORY: -COUGH. Compare: May Coarse lung markings again noted Possible early infiltrate in right midlung Heart size normal and stable Left lung free of infiltrates No pneumothorax Procedure Note Rosita Abbott MD - 06/26/2014 XR CHEST PA AND LATERAL Jun 26, 2014 02:55:41 PM HISTORY: -COUGH. Compare: May Coarse lung markings again noted Possible early infiltrate in right midlung Heart size normal and stable Left lung free of infiltrates No pneumothorax IMPRESSION: Possible early pneumonia in right midlung Short-term followup PA with lateral chest examination suggested ifclinically warranted. Mesha Prieto MD IMG DIAGNOSTIC IMAGING ORDER GAETANO Final Result * LDL, CALCULATED (04/06/2014 7:41 AM EST) Only the most recent of2 resultswithin the time period is included. Pathologist [facility] LDL Calculated 34 <=100 mg/dL [facility] Comment: < 100 Optimal 100 - 129 Near or above optimal 130 - 159 Borderline High 160 - 189 High >= 190 Very High Blood specimen (specimen) 04/06/2014 7:41 AM EST 04/06/2014 2:17 PM EST Alexa Pinto APRN CHEMISTRY ORDERABLES Final R esult [facility] [address] [place] [address] * (ABNORMAL) LIPID PANEL REFLEX (04/06/2014 7:41 AM EST) Only the most recent of2 resultswithin the time period is included. Cholesterol 99 <=200 mg/dL [facility] Comment: < 200 Desirable 200 - 239 Borderline High >= 240 High Triglyceride 136 <=150 mg/dL [facility] Comment: < 150 Normal 150 - 199 Borderline High 200 - 499 High >= 500 Very High HDL 38(L) >=40 mg/dL [facility] Comment: > 60 Optimal 40 - 60 Acceptable < 40 Low Blood specimen (specimen) UPPER LIMB STRUCTURE / Unknown 04/06/2014 7:41 AM EST 04/06/2014 2:17 PM EST Alexa Pinto APRN CHEMISTRY ORDERABLES Final R esult [facility] [address] [place] [id number] * SCANNED HOLTER MONITOR (10/20/2013 2:43 PM EDT) Anatomical Region Laterality Modality Other us Unknown Unknown IMG HOLTER MONITOR ORDERABLES Fi nal Result * HOLTER MONITOR RECORDING AND ANALYSIS (09/27/2013 11:10 AM EDT) Anatomical Region Laterality Modality Holter/Event Mon itoring Impressions 12/31/2013 1:58 PM EDT : Rare PVC's. No eectopy. ST-T abnormalities of varying degree of uncertain significance. Diary entries as noted - which did not correlate with Holter abnormalities. Narrative 12/31/2013 1:58 PM EDT INDICATIONS: Fluttering LENGTH OF TAPE 24 HRS 04 MINS MEDICATION: Alprazolam, Pain meds SLOWEST RATE 53 FASTEST RATE 94 AVERAGE RATE 68 TOTAL PVC'S 461 TOTAL PAC'S 0 AIVR/IVR Runs Number of episodes 0 Longest run Beats Minimum rate VENTRICULAR TACHYCARDIA SUPRAVENTRICULAR TACHYCARDIA Number of episodes 0 Number of episodes 0 Longest run Beats Longest run Beats Fastest rate Fastest rate OTHER ARRHYTHMIAS: See below. ST & T WAVE CHANGES: See below. SYMPTOMS: See below. Procedure Note María Monge MD - 12/31/2013 INDICATIONS: Fluttering LENGTH OF TAPE 24 HRS 04 MINS MEDICATION: Alprazolam, Pain meds SLOWEST RATE 53 FASTEST RATE 94 AVERAGE RATE 68 TOTAL PVC'S 461 TOTAL PAC'S0 AIVR/IVR Runs Number of episodes 0 Longest run Beats Minimum rate VENTRICULAR TACHYCARDIA SUPRAVENTRICULAR TACHYCARDIA Number of episodes 0 Number of episodes 0 Longest run Beats Longest run Beats Fastest rate Fastest rate OTHER ARRHYTHMIAS: See below. ST & T WAVE CHANGES: See below. SYMPTOMS: See below. IMPRESSION: Rare PVC's. No eectopy. ST-T abnormalities of varyingdegree of uncertain significance. Diary entries as noted - which did notcorrelate with Holter abnormalities. us Alley Cazares MD IMG HOLTER MONITOR ORDERAB LES Final Result * PATHOLOGY TISSUE REPORT (07/19/2013 9:31 PM EDT) Surgical Pathology Report PATIENT NAME:SUSAN VALDEZ Surgical Pathology Report Accession Number Collected Date/Time Received Date/Time [id number] 07/19/13 21:31 EDT 07/19/13 21:31 EDT Diagnosis Lip, upper, biopsy: - Mild perivascular chronic inflammation with fibrosis extending into skeletal muscle. - Benign squamous mucosa showing mild parakeratosis. - Negative for malignancy. Tasha Kendrick (Electronically signed by) Verified: 07/21/2013 [facility] Laboratory Clinical Information Lip lesion. Gross Description Received in formalin labeled with the patient's name and upper lip is a punch biopsy of alfredo skin, 2 mm in diameter and 4 mm in depth. Entirely submitted in one cassette. /DEMETRIO KM / Microscopic Description Microscopic examination is performed and the findings corroborate the diagnosis. [facility] 07/19/2013 9:31 PM EDT us Max Wyatt MD PATHOLOGY ORDERABLES Final Resu lt Performing Organization Address City/[facility]/ZIP Co de Phone Number [facility] [address] [place] [address] * RHEUMATOID FACTOR QUALITATIVE (07/01/2013 9:45 AM EST) Pathologist [facility] Rheumatoid Factor < 10 IU < 10 IU [facility] Comment:Semi-quantitative me thod: Units IU/mL Blood specimen (specimen) UPPER LIMB STRUCTURE / Unknown 07/01/2013 9:45 AM EST 07/01/2013 7:39 PM EST us Alley Cazares MD IMMUNOLOGY ORDERABLES [place] l Result Performing Organization Address City/[facility] Co de Phone Number [facility] [address] [place] [address] * SEDIMENTATION RATE AUTOMATED (07/01/2013 9:45 AM EST) Sed Rate 7 0 - 20 mm [facility] Blood specimen (specimen) UPPER LIMB STRUCTURE / Unknown 07/01/2013 9:45 AM EST 07/01/2013 7:39 PM EST Alley Cazares MD HEMATOLOGY ORDERABLES [place] morgan Result Performing Organization Address [facility] Co de Phone Number [facility] [address] [place] [address] * ANTINUCLEAR ANTIBODY SCREEN (07/01/2013 9:45 AM EST) [facility] ABY Screen Negative [facility] Comment: ABY samples are screened using an automated EIA assay. All samples that screen positive are titered by an IFA method and will include an ABY pattern. A titer of < 1:80 is considered clinically insignificant. In general, a titer >= 1:160 is considered significant positive. Blood specimen (specimen) UPPER LIMB STRUCTURE / Unknown 07/01/2013 9:45 AM EST 07/01/2013 7:39 PM EST Alley Cazares MD IMMUNOLOGY ORDERABLES [place] morgan Result Performing Organization Address [facility] de Phone Number [facility] [address] [place] [address] * HEMOGLOBIN A1C (07/01/2013 9:45 AM EST) Only the most recent of2 resultswithin the time period is included. [facility] [facility] [place] Hgb A1c 5.2 <=7.0 % [facility] Comment: Initial Diagnostic Criteria < 5.7 % Normal 5.7 - 6.4 % At risk for diabetes mellitus >= 6.5 % Consistent with diabetes mellitus Diabetes monitoring Target Value (ADA recommended): < 7 % Blood specimen (specimen) UPPER LIMB STRUCTURE / Unknown 07/01/2013 9:45 AM EST 07/01/2013 7:39 PM EST Alley Cazares MD CHEMISTRY ORDERABLES Final Result Performing Organization Address [facility] Co de Phone Number [facility] [address] [place] [address] * INFLUENZA A/B ANTIGENS (06/06/2013 8:16 AM EST) Pathologist [facility] Influ A Ag Negative [facility] Comment: Negative results in patients with high clinical suspicion should be verfied with RT-PCR, available as Respiratory Viral Mini Panel in [facility]. The WHO recommends molecular testing (Respiratory Viral DNA Test) during periods of low influenza activity instead of rapid tests. Should rapid tests be used, then both positive and negative test results should be confirmed by a molecular method. The WHO also recommends confirmatory testing by a molecular method (Respiratory Viral DNA Test) for all negative rapid test results during seasonal occurrence of influenza. Influ B Ag Negative [facility] Swab of internal nose (specimen) STRUCTURE OF URINARY TRACT PROPER / Unknown 06/06/2013 8:16 AM EST 06/06/2013 8:16 AM EST us Carlos Shannon MD MICROBIOLOGY - GENERAL ORDERABLE S Final Result Performing Organization Address [facility] Co de Phone Number [facility] [address] [place] [address] * POCT ACTIVATED CLOTTING TIME (05/16/2013 5:36 PM EST) Only the most recent of4 resultswithin the time period is included. Pathologist [facility] ACT 140 sec [facility] Lot Number [facility] Expiration Date [facility] SeriAl # [facility] Meter [facility] Blood specimen (specimen) 05/16/2013 5:36 PM EST Janeen Ballard MD POINT OF CARE TEST ORDERABLES Fi nal Result Performing Organization Address [facility] Co de Phone Number [facility] [address] [place] [address] * (ABNORMAL) TROPONIN-I (05/16/2013 3:12 PM EST) Only the most recent of4 resultswithin the time period is included. Pathologist [facility] Troponin-I 38.50(H) <=0.06 ng/mL [facility] Blood specimen (specimen) UPPER LIMB STRUCTURE / Unknown 05/16/2013 3:12 PM EST 05/16/2013 3:18 PM EST us Federico Waite MD CHEMISTRY ORDERABLES Final Re sult Performing Organization Address [facility] Co de Phone Number [facility] [address] [place] [address] * PT / INR (05/16/2013 3:12 PM EST) PT 12.0 9.5 - 12.5 second(s) [facility] INR 1.09 0.88 - 1.13 [facility] Comment: Level of Therapy Indications Target INR Range Standard Dose Treatment and prophylaxis of venous 2.0 - 3.0 thrombosis, pulmonary embolism High Dose High risk patients with mechanical 2.5 - 3.5 heart valves Blood specimen (specimen) UPPER LIMB STRUCTURE / Unknown 05/16/2013 3:12 PM EST 05/16/2013 3:18 PM EST Narrative [facility] - 05/16/2013 3:43 PM EST PT/INR only if patient is on Coumadin. Notify public health engineer if INR is 1.8 or greater us Janeen Ballard MD HEMATOLOGY ORDERABLES Final Resu lt [facility] [address] [place] [address] * (ABNORMAL) BASIC METABOLIC PANEL (05/16/2013 3:00 AM EST) Only the most recent of5 resultswithin the time period is included. Sodium 140 135 - 143 mmol/L [facility] Potassium 4.2 3.5 - 5.0 mmol/L [facility] Chloride 99 98 - 108 mmol/L [facility] Total CO2 30 22 - 31 mmol/L [facility] Anion Gap 11 7 - 16 mmol/L [facility] Calcium 9.9 8.6 - 10.3 mg/dL [facility] Glucose Lvl 150(H) 70 - 100 mg/dL [facility] BUN 9 8 - 23 mg/dL [facility] Creatinine 1.0 0.7 - 1.3 mg/dL [facility] GFR Afr Am >60 [facility] Comment: GFR is estimated using creatinine, age, gender, and race. GFR has been validated for patients between 18 and 70 years of age. GFR has not been validated for women, patients with serious comorbid conditions, or persons with extremes of body size, muscle mass, or nutritional status. For additional information: www.kidney.org. Chronic kidney disease stage GFR (ml/min/1.73 square meters) Stage 3 30 - 59 Stage 4 15 - 29 Stage 5 14 or less GFR Non Afr Am >60 [facility] Blood specimen (specimen) UPPER LIMB STRUCTURE / Unknown 05/16/2013 3:00 AM EST 05/16/2013 3:05 AM EST Federico Waite MD CHEMISTRY ORDERABLES Final Re sult Performing Organization Address [facility] Co de Phone Number [facility] [address] [place] [address] * SHOT TUBE MACHINE TENDER PROCEDURE LOG (05/16/2013 12:00 AM EST) Jerel Joshua MD [facility] CARDIAC CATH ORDERABLES Libertad l Result Performing Organization Address [facility] Co de Phone Number [facility] [address] [place] [address] * LIPASE LEVEL (04/13/2013 4:44 AM EST) Only the most recent of5 resultswithin the time period is included. Lipase Lvl 41 36 - 250 IU/L [facility] Blood specimen (specimen) UPPER LIMB STRUCTURE / Unknown 04/13/2013 4:44 AM EST 04/13/2013 4:44 AM EST us Delisa Cool MD CHEMISTRY ORDERABLES Final R esult Performing Organization Address [facility] Co de Phone Number [facility] [address] [place] [address] * SCANNED LABS (02/09/2013 10:16 AM EDT) Only the most recent of7 resultswithin the time period is included. 02/09/2013 10:1 6 AM EDT us Unknown Unknown HEMATOLOGY ORDERABLES Final Resu lt * SCANNED RADIOLOGY REPORT (09/23/2012 3:07 PM EDT) Anatomical Region Laterality Modality Other 09/23/2012 3:07 PM EDT us Unknown Unknown IMG DIAGNOSTIC IMAGING ORDERABLE S Final Result * NM MYOCARDIAL PERFUSION SPECT STRESS AND REST (09/22/2012 4:10 PM EDT) Ejection Fraction 47 % PYRAMIS Anatomical Region Laterality Modality Nuclear Medicine 09/22/2012 1:40 PM EDT Impressions 09/28/2012 1:19 PM EDT SPECT RESULTS Technical Quality: Technically adequate study Raw Data Analysis: No clinically relevant artifact Perfusion: Reversible defects absent. Fixed inferior apical defect FUNCTION (calculated via Gated SPECT) Post Stress LV EF:47 % TID: 1.1 EDV: 136 ml (70-100 ml) ESV: 72 ml (30-50 ml) EDVI: 63 ml/m? (30-50 ml/m?) ESVI: 33 ml/m? (15-30 ml/m?) Technical Quality: Gated SPECT appears to be visually accurate LV Size & Function: Inferior hypokinesis Mild LV systolic depression EF 47% IMPRESSIONS Reversible defects absent. Fixed inferior apical defect. Inferior hypokinesis. Mild LV systolic depression EF 47% . Nondiagnostic ekg with Lexiscan protocol Narrative Procedure Note Srini Lynch MD - 09/28/2012 IMPRESSION SPECT RESULTS Technical Quality: Technically adequate study Raw Data Analysis: No clinically relevant artifact Perfusion: Reversible defects absent. Fixed inferior apical defect FUNCTION (calculated via Gated SPECT) Post Stress LV EF:47 %TID: 1.1 EDV: 136 ml (70-100 ml) ESV: 72 ml(30-50 ml) EDVI: 63 ml/m? (30-50 ml/m?) ESVI: 33ml/m? (15-30 ml/m?) Technical Quality: Gated SPECT appears to be visually accurate LV Size & Function: Inferior hypokinesis Mild LV systolic depression EF 47% IMPRESSIONS Reversible defects absent. Fixed inferior apical defect. Inferior hypokinesis. Mild LV systolic depression EF 47% . Nondiagnostic ekg with Lexiscan protocol Alexa Pinto MASTER CONTROL SUPERVISOR IMG NM CARDIAC ORDERABLES Fi nal Result * ST STRESS TEST LEXISCAN (09/22/2012 3:30 PM EDT) Anatomical Region Laterality Modality Cardiac Stress T esting 09/22/2012 3:02 PM EDT Alexa Pinto MASTER CONTROL SUPERVISOR IMG STRESS ORDERABLES Final Result * EC ECHOCARDIOGRAM COMPLETE W DOPPLER AND COLOR FLOW MAPPING (09/22/2012 1:04 PM EDT) Ejection Fraction 50 % PYRAMIS Anatomical Region Laterality Modality Electrocardiogra phy 09/22/2012 12:3 7 PM EDT Impressions 09/22/2012 3:52 PM EDT FINDINGS LV EF = 50% Left Ventricle Left ventricular wall thickness is normal. Left ventricular ejection fraction estimated at 50%. Normal left ventricular diastolic filling pattern. Right Ventricle The right ventricle is normal in size and function. Right Atrium The right atrium is normal in size. Left Atrium The left atrium is normal in size. Mitral Valve Structurally normal mitral valve. Mild mitral regurgitation. Aortic Valve Aortic valve not well visualized. No aortic valve stenosis or regurgitation. Tricuspid Valve Structurally normal tricuspid valve. Pulmonic Valve Structurally normal pulmonic valve. Pericardium Normal pericardium without effusion. Aorta Normal aortic root dimension. CONCLUSIONS Left ventricular wall thickness is normal. Left ventricular ejection fraction estimated at 50%. Normal left ventricular diastolic filling pattern. Mild mitral regurgitation. Narrative Procedure Note Jerel Joshua MD - 09/22/2012 IMPRESSION FINDINGS LV EF = 50% Left Ventricle Left ventricular wall thickness is normal. Leftventricular ejection fraction estimated at 50%. Normal left ventricular diastolic filling pattern. Right Ventricle The right ventricle is normal in size and function. Right Atrium The right atrium is normal in size. Left Atrium The left atrium is normal in size. Mitral Valve Structurally normal mitral valve. Mild mitralregurgitation. Aortic Valve Aortic valve not well visualized. No aortic valvestenosis or regurgitation. Tricuspid Valve Structurally normal tricuspid valve. Pulmonic Valve Structurally normal pulmonic valve. Pericardium Normal pericardium without effusion. Aorta Normal aortic root dimension. CONCLUSIONS Left ventricular wall thickness is normal. Left ventricular ejectionfraction estimated at 50%. Normal left ventricular diastolic filling pattern. Mild mitral regurgitation. us Alexa Normascott MASTER CONTROL SUPERVISOR IMG ECHO ORDERABLES Final Re sult * ACUTE HEPATITIS PANEL (05/11/2012 2:37 PM EST) Hep Bs Ag Negative Negative [facility] Hep B Core IgM Negative Negative [facility] Hep A IgM Negative Negative [facility] Hep C Ab Negative Negative [facility] Blood specimen (specimen) UPPER LIMB STRUCTURE / Unknown 05/11/2012 2:37 PM EST 05/12/2012 10:53 AM EST us Navin Mackenzie MD CHEMISTRY ORDERABLES Edited Performing Organization Address [facility] Co de Phone Number [facility] [address] [place] [address] * POCT EKG (01/29/2012 1:52 PM EDT) 01/29/2012 1:52 PM EDT Impressions SEP OFFICE - 01/29/2012 1:52 PM EDT NSR Old inf AR noted us Srini Lynch MD POINT OF CARE CARDIOLOGY F inal Result Performing Organization Address [facility] Co de Phone Number SEP OFFICE * STREP PNEUMO ANTIGEN (11/12/2011 10:05 PM EDT) Pathologist [facility] Strep Pneum Ag Negative [facility] Urine specimen (specimen) 11/12/2011 10:05 PM EDT 11/12/2011 10:09 PM EDT us Herve Garza MD MICROBIOLOGY - GENERAL ORDERAB LES Final Result Performing Organization Address [facility]/ZIP Co de Phone Number [facility] [address] [place] [address] * LEGIONELLA ANTIGEN URINE (11/12/2011 10:05 PM EDT) Legionella Ag Negative [facility] Urine specimen (specimen) 11/12/2011 10:05 PM EDT 11/12/2011 10:09 PM EDT us Herve Garza MD MICROBIOLOGY - GENERAL ORDERAB LES Final Result Performing Organization Address [facility] Co de Phone Number [facility] [address] [place] [address] * UPPER RESPIRATORY CULTURE (11/12/2011 4:45 PM EDT) Final No growth of Staphylococcus aureus [facility] Swab of internal nose (specimen) NASAL STRUCTURE / Unknown 11/12/2011 4:45 PM EDT 11/12/2011 4:47 PM EDT Narrative [facility] - 11/14/2011 11:10 AM EDT mrsa us Herve Garza MD MICROBIOLOGY - GENERAL ORDERAB LES Final Result Performing Organization Address [facility] de Phone Number [facility] [address] [place] [address] * POCT URINALYSIS DIPSTICK (11/12/2011 10:45 AM EDT) Only the most recent of4 resultswithin the time period is included. Color, UA yellow Clear, Yellow, [place], Rust [facility] Clarity, UA clear Clear, Cloudy [facility] Glucose, UA n g/dl% [facility] Bilirubin, UA n Pos/Neg [facility] Ketones, UA n Pos/Neg [facility] Spec Grav, UA 1.020 1.020 - 1.030 g/dl [facility] Blood, UA n Pos/Neg [facility] pH, UA 6.0 5.0 - 6.5 [facility] Protein, UA n Pos/Neg [facility] Urobilinogen, UA 0.2 0.2 - 1.0 mg/dL [facility] Leukocytes, UA n Pos/Neg [facility] Nitrite, UA n Pos/Neg [facility] Appear BF Clear Clear, Slightly Cloudy Clear, Cloudy [facility] Lot Number [id number] [facility] Expiration Date [facility] SeriAl # [facility] Urine specimen (specimen) 11/12/2011 10:45 AM EDT Tony Moreno MD POINT OF CARE TEST ORDERAB LES Final Result [facility] [address] [place] [address] * XR ACUTE ABDOMEN SUPINE ERECT AND OR DECUBITUS W 1 VW CHEST (10/15/2011 5:04 PM EDT) Only the most recent of2 resultswithin the time period is included. Anatomical Region Laterality Modality Abdomen, Chest Radiographic Fifi ging 10/15/2011 4:19 PM EDT Impressions 10/15/2011 5:12 PM EDT IMPRESSION: Negative study Narrative 10/15/2011 5:12 PM EDT XR ACUTE ABDOMEN SUPINE ERECT AND OR DECUBITUS W 1 VW CHEST 10/15/2011 HISTORY: Nausea, vomiting, groin pain. Two views of the chest along with 3 views of the abdomen are compared to study from July 20, 2010. The chest appears normal. The abdominal gas pattern is within normal limits. No free air or obstruction seen. Procedure Note Sukumar Flynn MD - 10/15/2011 XR ACUTE ABDOMEN SUPINE ERECT AND OR DECUBITUS W 1 VW CHEST 10/15/2011 HISTORY: Nausea, vomiting, groin pain. Two views of the chest along with 3 views of the abdomen are compared tostudy from July 20, 2010. The chest appears normal. The abdominal gas pattern is within normallimits. No free air or obstruction seen. IMPRESSION: Negative study us Delisa Cool MD IMG DIAGNOSTIC IMAGING ORDER GAETANO Final Result * US SCROTUM AND TESTICLES (10/15/2011 4:25 PM EDT) Anatomical Region Laterality Modality Testes Ultrasound 10/15/2011 3:32 PM EDT Impressions 10/15/2011 4:38 PM EDT IMPRESSION: Minimal bilateral hydroceles. No evidence torsion or epididymo orchitis. Narrative 10/15/2011 4:38 PM EDT Testicular sonogram 10/15/2011 HISTORY: Bilateral pain. Routine sonography is performed. Both testes have normal size, shape, echogenicity, and morphology. The epididymides appear normal. Blood flow within the testes and epididymides symmetric and normal. There are small bilateral hydroceles. No evidence of torsion or mass. Procedure Note Sukumar Flynn MD - 10/15/2011 Testicular sonogram 10/15/2011 HISTORY: Bilateral pain. Routine sonography is performed. Both testes have normal size, shape, echogenicity, and morphology. Theepididymides appear normal. Blood flow within the testes and epididymides symmetric andnormal. There are small bilateral hydroceles. No evidence of torsion or mass. IMPRESSION: Minimal bilateral hydroceles. No evidence torsion or epididymoorchitis. Delisa Cool MD IMG US ORDERABLES Final Resu lt * .CHL/GC URINE RESULTS (10/15/2011 4:25 PM EDT) C. trachomatis/N. gonorrhoeae Specimen Urine [facility] Comment: Extraction of genetic material from urine and Thin Prep samples was performed using a method that was developed and validated in the performing laboratory. Detailed methodology is available upon request. Chlamydia trachomatis Negative [facility] Neisseria gonorrhoeae Negative [facility] Urine specimen (specimen) 10/15/2011 4:25 PM EDT 10/15/2011 7:29 PM EDT Delisa Cool MD MICROBIOLOGY - GENERAL ORDER GAETANO Edited [facility] [address] [place] [address] * PROTEIN ELECTROPHORESIS, SERUM (08/11/2010 11:41 AM EDT) TOTAL PROTEIN (SPE) 7.9 6.0 - 8.2 [facility] ALBUMIN (SPE) 4.1 3.1 - 5.0 gm/dL [facility] ALPHA 1 GLOBULIN 0.2 0.1 - 0.3 gm/dL [facility] ALPHA 2 GLOBULIN 0.8 0.5 - 1.0 gm/dL [facility] BETA GLOBULIN 1.3 0.5 - 1.4 gm/dL [facility] GAMMA GLOBULIN 1.5 0.6 - 1.6 gm/dL [facility] SPE/MABLE INTERP See Footnote [facility] Comment:Normal serum protein electrophoresis pattern. Blood specimen (specimen) 08/11/2010 11:41 AM EDT 08/11/2010 7:30 PM EDT David Otero MD IMMUNOLOGY ORDERABLES Edited Performing Organization Address [facility] de Phone Number [facility] [address] [place] [address] * PROSTATE SPECIFIC ANTIGEN (SCREENING) (08/11/2010 11:41 AM EDT) Total PSA 0.939 0.000 - 4.000 ng/mL [facility] Comment: [facility] Laboratory uses the [employer] TOTAL PSA assay, which is approved for use as an aid in the detection of prostate cancer when used in conjunction with digital rectal exam in men aged 50 years and older. The [employer] TOTAL PSA assay is also indicated as an adjunctive test used as an aid in the management of prostate cancer patients. Values obtained with different assay methods should not be used interchangeably. Prostatic biopsy is required for the diagnosis of cancer. Blood specimen (specimen) UPPER LIMB STRUCTURE / Unknown 08/11/2010 11:41 AM EDT 08/11/2010 7:30 PM EDT us David Otero MD CHEMISTRY ORDERABLES Final Re sult Performing Organization Address [facility] de Phone Number [facility] [address] [place] [address] * VITAMIN B1 (THIAMINE) WHOLE BLOOD-ARUP (08/11/2010 11:41 AM EDT) Vit B1 WB 148 70 - 180 nmol/L [facility] Comment: TEST INFORMATION: Vitamin B1, Whole Blood The concentration of thiamine diphosphate (TDP), the primary active form of vitamin B1, is measured in this assay. Approximately 90% of vitamin B1 present in whole blood is TDP. Thiamine and thiamine monophosphate, which comprise the remaining 10%, are not measured. Blood specimen (specimen) UPPER LIMB STRUCTURE / Unknown 08/11/2010 11:41 AM EDT 08/11/2010 9:02 PM EDT us David Otero MD CHEMISTRY ORDERABLES Final Re sult Performing Organization Address [facility] Co de Phone Number [facility] [address] [place] [address] * THYROID STIMULATING HORMONE (08/11/2010 11:41 AM EDT) TSH 1.870 0.300 - 5.000 mcIU/mL [facility] Blood specimen (specimen) UPPER LIMB STRUCTURE / Unknown 08/11/2010 11:41 AM EDT 08/11/2010 7:30 PM EDT us David Otero MD CHEMISTRY ORDERABLES Final Re sult Performing Organization Address [facility] Co de Phone Number [facility] [address] [place] [address] * (ABNORMAL) T4, FREE (08/11/2010 11:41 AM EDT) Free T4 0.7(L) 0.8 - 2.0 ng/dL [facility] Blood specimen (specimen) UPPER LIMB STRUCTURE / Unknown 08/11/2010 11:41 AM EDT 08/11/2010 7:30 PM EDT us David Otero MD CHEMISTRY ORDERABLES Final Re sult Performing Organization Address [facility] Co de Phone Number [facility] [address] [place] [address] * VITAMIN B12 LEVEL (08/11/2010 11:41 AM EDT) Vitamin B12 341 239 - 931 pg/mL [facility] Blood specimen (specimen) UPPER LIMB STRUCTURE / Unknown 08/11/2010 11:41 AM EDT 08/11/2010 7:30 PM EDT us David Otero MD CHEMISTRY ORDERABLES Final Re sult Performing Organization Address [facility] Co de Phone Number [facility] [address] [place] [address] * (ABNORMAL) SMEAR REVIEW (01/05/2010 8:06 PM EDT) Bands 30(H) 0 - 10 % [facility] RBC Morph Normal [facility] Blood specimen (specimen) 01/05/2010 8:06 PM EDT 01/05/2010 8:06 PM EDT us Naila Arciniega MD HEMATOLOGY ORDERABLES Libertad morgan Result [facility] [address] [place] [address] * CT HEAD ANTIQUER GC (01/12/2009 4:50 PM EDT) Anatomical Region Laterality Modality Other 01/12/2009 4:50 PM EDT Narrative 01/12/2009 5:[address] head without contrast, 01/12/2009. HISTORY- Headache, dizziness. History of MS and heart disease. COMPARISON- 11/03/2004. FINDINGS- No hemorrhage or mass-effect. Ventricles normal in size and position. Visualized paranasal sinuses and mastoids clear. Remote ischemia/infarction noted in left posterior perez radiata region. OPINION- No acute findings. Dr. Abbott discussed this case with Avelino of the Emergency Department at 5-15 p.m. on 01/12/2009. Direct Selling Counselor- ROS POTTS Reading Physician- ROSITA ABBOTT MD Released Date Time- 01/12/091931 Procedure Note Rosita Abbott W - 07/07/2009 CT head without contrast, 01/12/2009. HISTORY- Headache, dizziness. History of MS and heart disease. COMPARISON- 11/03/2004. FINDINGS- No hemorrhage or mass-effect. Ventricles normal in size and position. Visualized paranasal sinuses and mastoids clear. Remote ischemia/infarction noted in left posterior perez radiata region. OPINION- No acute findings. Dr. Abbott discussed this case with Avelino of the Emergency Department at 5-15 p.m. on 01/12/2009. Direct Selling Counselor- ROS POTTS Reading Physician- ROSITA ABBOTT MD Released Date Time- 01/12/091931 us Ezekiel Marroquin MD [facility] HISTORICAL Fi nal Result * CT HEAD ANTIQUER (10/04/2004 3:55 PM EDT) Anatomical Region Laterality Modality Other 10/04/2004 3:55 PM EDT Narrative 10/04/2004 4:[address] without contrast- 10/04/04 Comparison- None at this institution. Indication- 44-year-old male with headache, near syncopal episode, shortness of breath and numbness in hands and face. History of hypertension. Findings- Ventricles are normal in size, configuration and position. A small low attenuation defect subcortical white matter posterior left frontal lobe corresponds to ischemic insult, likely remote. No other parenchymal abnormalities. No hemorrhage or mass-effect. Left lamina papyracea has distorted contour consistent with remote fracture. Impression- 1. Age-indeterminate but likely subtle remote left posterior frontal subcortical white matter ischemic insult. 2. No hemorrhage or mass-effect. Direct Selling Counselor- MARJORIE Tellez Radiologist- PATRICIA VILLAGRAN MD. Releasing Radiologist- SAMPSON VELAZQUEZ MD Released Date Time- 10/04/04 1618 Procedure Note Patricia Villagran - 07/04/[address] without contrast- 10/04/04 Comparison- None at this institution. Indication- 44-year-old male with headache, near syncopal episode, shortness of breath and numbness in hands and face. History of hypertension. Findings- Ventricles are normal in size, configuration and position. A small low attenuation defect subcortical white matter posterior left frontal lobe corresponds to ischemic insult, likely remote. No other parenchymal abnormalities. No hemorrhage or mass-effect. Left lamina papyracea has distorted contour consistent with remote fracture. Impression- 1. Age-indeterminate but likely subtle remote left posterior frontal subcortical white matter ischemic insult. 2. No hemorrhage or mass-effect. Direct Selling Counselor- MARJORIE ROGEL Reading Radiologist- PATRICIA VILLAGRAN MD. Releasing Radiologist- SAMPSON VELAZQUEZ MD Released Date Time- 10/04/04 1618 Eugenio Cormier MD [facility] HISTORICAL Fin al Result Visit Diagnoses Diagnosis Start Date Pneumonia Pneumonia, organism unspecified 01/05/2010 Chronic pain Other chronic pain 01/05/2010 Multiple sclerosis (HCC) Multiple sclerosis 01/05/2010 Dental caries Unspecified dental caries 03/25/2010 Urinary retention Retention of urine, unspecified 07/20/2010 Multiple sclerosis (HCC) Multiple sclerosis 07/20/2010 Pneumonia Pneumonia, organism unspecified 07/20/2010 Chronic pain Other chronic pain 07/20/2010 Type II or unspecified type diabetes mellitus without mention of complication, not stated as uncontrolled 08/11/2010 Unspecified hereditary and idiopathic peripheral neuropathy 08/11/2010 Other postablative hypothyroidism 08/11/2010 Testicular pain Unspecified disorder of male genital organs 10/15/2011 Vomiting Vomiting alone 10/15/2011 Multiple sclerosis (HCC) Multiple sclerosis 10/15/2011 Constipation Unspecified constipation 10/15/2011 Pneumonia Pneumonia, organism unspecified 11/12/2011 Fever Fever, unspecified 11/12/2011 Multiple sclerosis (HCC) Multiple sclerosis 11/12/2011 Bacterial pneumonia, unspecified 11/12/2011 MS (multiple sclerosis) (HCC) Multiple sclerosis 11/12/2011 CAD (coronary artery disease) Coronary atherosclerosis of unspecified type of vessel, [place] or graft 11/12/2011 HTN (hypertension) Unspecified essential hypertension 11/12/2011 Tobacco use disorder 11/12/2011 Lipid screening Screening for lipoid disorders 01/21/2012 HTN (hypertension) Unspecified essential hypertension 01/21/2012 MS (multiple sclerosis) (HCC) Multiple sclerosis 01/21/2012 HTN (hypertension) Unspecified essential hypertension 01/21/2012 Chronic pain Other chronic pain 01/21/2012 CAD (coronary artery disease) Coronary atherosclerosis of unspecified type of vessel, [place] or graft 01/21/2012 GERD (gastroesophageal reflux disease) Esophageal reflux 01/21/2012 Lipid screening Screening for lipoid disorders 01/21/2012 CAD (coronary artery disease) Coronary atherosclerosis of unspecified type of vessel, [place] or graft 01/29/2012 AMI inferior wall (HCC) Acute myocardial infarction of other inferior wall, episode of care unspecified 01/29/2012 HTN (hypertension) Unspecified essential hypertension 01/29/2012 Dyslipidemia Other and unspecified hyperlipidemia 01/29/2012 Smoker Tobacco use disorder 01/29/2012 MS (multiple sclerosis) (HCC) Multiple sclerosis 01/29/2012 Post PTCA Postsurgical percutaneous transluminal coronary angioplasty status 01/29/2012 CAD (coronary artery disease) Coronary atherosclerosis of unspecified type of vessel, [place] or graft 03/04/2012 AMI inferior wall (HCC) Acute myocardial infarction of other inferior wall, episode of care unspecified 03/04/2012 HTN (hypertension) Unspecified essential hypertension 03/04/2012 Dyslipidemia Other and unspecified hyperlipidemia 03/04/2012 Smoker Tobacco use disorder 03/04/2012 MS (multiple sclerosis) (HCC) Multiple sclerosis 03/04/2012 Post PTCA Postsurgical percutaneous transluminal coronary angioplasty status 03/04/2012 CAD (coronary artery disease) Coronary atherosclerosis of unspecified type of vessel, [place] or graft 03/30/2012 Chronic pain Other chronic pain 03/30/2012 MS (multiple sclerosis) (HCC) Multiple sclerosis 04/06/2012 MS (multiple sclerosis) (HCC) Multiple sclerosis 05/07/2012 MS (multiple sclerosis) (HCC) Multiple sclerosis 05/07/2012 Elevated LFTs Other abnormal blood chemistry 05/11/2012 Elevated LFTs Other abnormal blood chemistry 05/11/2012 HTN (hypertension) Unspecified essential hypertension 05/20/2012 CAD (coronary artery disease) Coronary atherosclerosis of unspecified type of vessel, [place] or graft 05/20/2012 AMI inferior wall (HCC) Acute myocardial infarction of other inferior wall, episode of care unspecified 05/20/2012 Dyslipidemia Other and unspecified hyperlipidemia 05/20/2012 MS (multiple sclerosis) (HCC) Multiple sclerosis 05/20/2012 Smoker Tobacco use disorder 05/20/2012 Post PTCA Postsurgical percutaneous transluminal coronary angioplasty status 05/20/2012 HTN (hypertension) Unspecified essential hypertension 09/22/2012 CAD (coronary artery disease) Coronary atherosclerosis of unspecified type of vessel, [place] or graft 09/22/2012 AMI inferior wall (HCC) Acute myocardial infarction of other inferior wall, episode of care unspecified 09/22/2012 Dyslipidemia Other and unspecified hyperlipidemia 09/22/2012 MS (multiple sclerosis) ([facility]) Multiple sclerosis 09/22/2012 Smoker Tobacco use disorder 09/22/2012 Post PTCA Postsurgical percutaneous transluminal coronary angioplasty status 09/22/2012 HTN (hypertension) Unspecified essential hypertension 09/22/2012 CAD (coronary artery disease) Coronary atherosclerosis of unspecified type of vessel, [place] or graft 09/22/2012 AMI inferior wall (HCC) Acute myocardial infarction of other inferior wall, episode of care unspecified 09/22/2012 Dyslipidemia Other and unspecified hyperlipidemia 09/22/2012 MS (multiple sclerosis) ([facility]) Multiple sclerosis 09/22/2012 Smoker Tobacco use disorder 09/22/2012 Post PTCA Postsurgical percutaneous transluminal coronary angioplasty status 09/22/2012 HTN (hypertension) Unspecified essential hypertension 09/22/2012 CAD (coronary artery disease) Coronary atherosclerosis of unspecified type of vessel, [place] or graft 09/22/2012 AMI inferior wall (HCC) Acute myocardial infarction of other inferior wall, episode of care unspecified 09/22/2012 Dyslipidemia Other and unspecified hyperlipidemia 09/22/2012 MS (multiple sclerosis) ([facility]) Multiple sclerosis 09/22/2012 Smoker Tobacco use disorder 09/22/2012 Post PTCA Postsurgical percutaneous transluminal coronary angioplasty status 09/22/2012 HTN (hypertension) Unspecified essential hypertension 09/22/2012 CAD (coronary artery disease) Coronary atherosclerosis of unspecified type of vessel, [place] or graft 09/22/2012 AMI inferior wall (HCC) Acute myocardial infarction of other inferior wall, episode of care unspecified 09/22/2012 Dyslipidemia Other and unspecified hyperlipidemia 09/22/2012 MS (multiple sclerosis) ([facility]) Multiple sclerosis 09/22/2012 Smoker Tobacco use disorder 09/22/2012 Post PTCA Postsurgical percutaneous transluminal coronary angioplasty status 09/22/2012 Elevated liver function tests Other abnormal blood chemistry 10/16/2012 HTN (hypertension) Unspecified essential hypertension 11/18/2012 CAD (coronary artery disease) Coronary atherosclerosis of unspecified type of vessel, [place] or graft 11/18/2012 AMI inferior wall ([facility]) Acute myocardial infarction of other inferior wall, episode of care unspecified 11/18/2012 Dyslipidemia Other and unspecified hyperlipidemia 11/18/2012 Smoker Tobacco use disorder 11/18/2012 MS (multiple sclerosis) ([facility]) Multiple sclerosis 11/18/2012 Post PTCA Postsurgical percutaneous transluminal coronary angioplasty status 11/18/2012 Sinusitis Unspecified sinusitis (chronic) 01/18/2013 Acute urticaria Other specified urticaria 01/26/2013 Urticaria, unspecified 01/26/2013 MS (multiple sclerosis) ([facility]) Multiple sclerosis 03/24/2013 MS (multiple sclerosis) ([facility]) Multiple sclerosis 03/24/2013 Allergic reaction caused by a drug Other drug allergy 03/28/2013 MS (multiple sclerosis) ([facility]) Multiple sclerosis 03/28/2013 Rash and other nonspecific skin eruption 03/28/2013 Other drug allergy(995.27) Other drug allergy 03/28/2013 Vomiting Vomiting alone 04/12/2013 Adverse drug reaction Unspecified adverse effect of unspecified drug, medicinal and biological substance 04/12/2013 Nausea vomiting and diarrhea Nausea with vomiting 04/13/2013 Multiple sclerosis (HCC) Multiple sclerosis 04/13/2013 Nausea with vomiting 04/13/2013 Diarrhea 04/13/2013 Herpes stomatitis Herpetic gingivostomatitis 04/24/2013 Herpetic gingivostomatitis 04/24/2013 Herpes stomatitis Herpetic gingivostomatitis 04/26/2013 Stomatitis and mucositis, unspecified 04/26/2013 Herpetic gingivostomatitis 04/26/2013 Impetigo 04/29/2013 Herpes stomatitis Herpetic gingivostomatitis 04/29/2013 Herpes zoster Herpes zoster without mention of complication 05/11/2013 Herpes stomatitis Herpetic gingivostomatitis 05/11/2013 Impetigo 05/11/2013 Acute chest pain Chest pain, unspecified 05/16/2013 Diaphoresis Generalized hyperhidrosis 05/16/2013 Chest pain, unspecified 05/16/2013 Generalized hyperhidrosis 05/16/2013 Chest pain Chest pain, unspecified 05/16/2013 Non-STEMI (non-ST elevated myocardial infarction) (HCC) Acute myocardial infarction, subendocardial infarction, episode of care unspecified 05/16/2013 CAD (coronary artery disease) Coronary atherosclerosis of unspecified type of vessel, [place] or graft 05/16/2013 Dyslipidemia Other and unspecified hyperlipidemia 05/16/2013 HTN (hypertension) Unspecified essential hypertension 05/16/2013 Post PTCA Postsurgical percutaneous transluminal coronary angioplasty status 05/16/2013 Smoker Tobacco use disorder 05/16/2013 AMI inferior wall (HCC) Acute myocardial infarction of other inferior wall, episode of care unspecified 05/20/2013 MS (multiple sclerosis) ([facility]) Multiple sclerosis 05/20/2013 CAD (coronary artery disease) Coronary atherosclerosis of unspecified type of vessel, [place] or graft 05/20/2013 Non-STEMI (non-ST elevated myocardial infarction) (HCC) Acute myocardial infarction, subendocardial infarction, episode of care unspecified 05/20/2013 Herpes stomatitis Herpetic gingivostomatitis 05/20/2013 GERD (gastroesophageal reflux disease) Esophageal reflux 05/20/2013 CAD (coronary artery disease) Coronary atherosclerosis of unspecified type of vessel, [place] or graft 05/26/2013 AMI inferior wall (HCC) Acute myocardial infarction of other inferior wall, episode of care unspecified 05/26/2013 HTN (hypertension) Unspecified essential hypertension 05/26/2013 Post PTCA Postsurgical percutaneous transluminal coronary angioplasty status 05/26/2013 Non-STEMI (non-ST elevated myocardial infarction) (HCC) Acute myocardial infarction, subendocardial infarction, episode of care unspecified 05/26/2013 Dyslipidemia Other and unspecified hyperlipidemia 05/26/2013 MS (multiple sclerosis) ([facility]) Multiple sclerosis 05/26/2013 Smoker Tobacco use disorder 05/26/2013 Nausea Nausea alone 06/05/2013 Cough 06/05/2013 Muscle cramps Cramp of limb 06/05/2013 Leukocytosis, unspecified 06/05/2013 Dehydration 06/05/2013 Acute upper respiratory infections of unspecified site 06/05/2013 Dehydration 06/06/2013 URI, acute Acute upper respiratory infections of unspecified site 06/06/2013 Leukocytosis Leukocytosis, unspecified 06/06/2013 Acute upper respiratory infections of unspecified site 06/06/2013 Leukocytosis, unspecified 06/06/2013 Bronchitis Bronchitis, not specified as acute or chronic 06/07/2013 Cyst of lip Diseases of lips 06/07/2013 Subcutaneous cyst Sebaceous cyst 06/16/2013 Diseases of lips 06/16/2013 Arthralgia Pain in joint, site unspecified 07/01/2013 Fatigue Other malaise and fatigue 07/01/2013 Elevated blood sugar Other abnormal glucose 07/01/2013 Constipation Unspecified constipation 07/01/2013 Elevated white blood cell count Leukocytosis, unspecified 07/01/2013 Elevated blood sugar Other abnormal glucose 07/01/2013 Fatigue Other malaise and fatigue 07/01/2013 Arthralgia Pain in joint, site unspecified 07/01/2013 Umbilical hernia Umbilical hernia without mention of obstruction or gangrene 07/01/2013 Lipid screening Screening for lipoid disorders 08/30/2013 MS (multiple sclerosis) ([facility]) Multiple sclerosis 08/30/2013 Lipid screening Screening for lipoid disorders 08/30/2013 Taking medication for chronic disease 08/30/2013 Shingles Herpes zoster without mention of complication 08/30/2013 Fluttering heart Ventricular flutter 09/23/2013 Fluttering heart Ventricular flutter 09/27/2013 AMI inferior wall ([facility]) Acute myocardial infarction of other inferior wall, episode of care unspecified 10/06/2013 HTN (hypertension) Unspecified essential hypertension 10/06/2013 CAD (coronary artery disease) Coronary atherosclerosis of unspecified type of vessel, [place] or graft 10/06/2013 Abrasion, leg w/ infection Hip, thigh, leg, and ankle, abrasion or friction burn, infected 10/23/2013 MS (multiple sclerosis) ([facility]) Multiple sclerosis 01/05/2014 Pain, dental Unspecified disorder of the teeth and supporting structures 03/22/2014 Unspecified disorder of the teeth and supporting structures 03/22/2014 AMI inferior wall ([facility]) Acute myocardial infarction of other inferior wall, episode of care unspecified 04/06/2014 HTN (hypertension) Unspecified essential hypertension 04/06/2014 CAD (coronary artery disease) Coronary atherosclerosis of unspecified type of vessel, [place] or graft 04/06/2014 CAD (coronary artery disease) Coronary atherosclerosis of unspecified type of vessel, [place] or graft 04/06/2014 AMI inferior wall (HCC) Acute myocardial infarction of other inferior wall, episode of care unspecified 04/06/2014 HTN (hypertension) Unspecified essential hypertension 04/06/2014 Post PTCA Postsurgical percutaneous transluminal coronary angioplasty status 04/06/2014 Non-STEMI (non-ST elevated myocardial infarction) (HCC) Acute myocardial infarction, subendocardial infarction, episode of care unspecified 04/06/2014 Dyslipidemia Other and unspecified hyperlipidemia 04/06/2014 Smoker Tobacco use disorder 04/06/2014 MS (multiple sclerosis) (HCC) Multiple sclerosis 04/06/2014 AMI inferior wall (HCC) Acute myocardial infarction of other inferior wall, episode of care unspecified 05/04/2014 Pneumonia Pneumonia, organism unspecified 06/26/2014 Altered level of consciousness Other alteration of consciousness 10/05/2014 Multiple sclerosis (HCC) Multiple sclerosis 10/05/2014 Leukocytosis Leukocytosis, unspecified 10/05/2014 Multiple sclerosis ([facility]) Multiple sclerosis 10/14/2014 AMI inferior wall (HCC) Acute myocardial infarction of other inferior wall, episode of care unspecified 10/19/2014 Essential hypertension Unspecified essential hypertension 10/19/2014 Coronary artery disease involving [place] coronary artery without angina pectoris 10/19/2014 Post PTCA Postsurgical percutaneous transluminal coronary angioplasty status 10/19/2014 Dyslipidemia Other and unspecified hyperlipidemia 10/19/2014 Smoker Tobacco use disorder 10/19/2014 AMI inferior wall (HCC) Acute myocardial infarction of other inferior wall, episode of care unspecified 10/28/2014 Essential hypertension Unspecified essential hypertension 10/28/2014 Coronary artery disease involving [place] coronary artery without angina pectoris 10/28/2014 Post PTCA Postsurgical percutaneous transluminal coronary angioplasty status 10/28/2014 Dyslipidemia Other and unspecified hyperlipidemia 10/28/2014 Smoker Tobacco use disorder 10/28/2014 Non-STEMI (non-ST elevated myocardial infarction) (HCC) Acute myocardial infarction, subendocardial infarction, episode of care unspecified 10/28/2014 HTN (hypertension) Unspecified essential hypertension 10/28/2014 MS (multiple sclerosis) (HCC) Multiple sclerosis 10/28/2014 CAD (coronary artery disease) Coronary atherosclerosis of unspecified type of vessel, [place] or graft 10/28/2014 Dyslipidemia Other and unspecified hyperlipidemia 11/10/2014 Dyslipidemia Other and unspecified hyperlipidemia 04/01/2015 AMI inferior wall (HCC) Acute myocardial infarction of other inferior wall, episode of care unspecified 04/12/2015 Non-STEMI (non-ST elevated myocardial infarction) (HCC) Acute myocardial infarction, subendocardial infarction, episode of care unspecified 04/12/2015 MS (multiple sclerosis) ([facility]) Multiple sclerosis 04/12/2015 Dyslipidemia Other and unspecified hyperlipidemia 04/12/2015 Smoker Tobacco use disorder 04/12/2015 Coronary artery disease involving [place] coronary artery of [place] heart without angina pectoris 04/12/2015 Post PTCA Postsurgical percutaneous transluminal coronary angioplasty status 04/12/2015 Essential hypertension Unspecified essential hypertension 04/12/2015 AMI inferior wall (HCC) Acute myocardial infarction of other inferior wall, episode of care unspecified 02/07/2016 Non-STEMI (non-ST elevated myocardial infarction) (HCC) Acute myocardial infarction, subendocardial infarction, episode of care unspecified 02/07/2016 Coronary artery disease involving [place] coronary artery of [place] heart without angina pectoris 02/07/2016 Post PTCA Postsurgical percutaneous transluminal coronary angioplasty status 02/07/2016 MS (multiple sclerosis) ([facility]) Multiple sclerosis 02/07/2016 Dyslipidemia Other and unspecified hyperlipidemia 02/07/2016 Smoker Tobacco use disorder 02/07/2016 Essential hypertension Unspecified essential hypertension 02/07/2016 AMI inferior wall (HCC) Acute myocardial infarction of other inferior wall, episode of care unspecified 02/07/2016 Non-STEMI (non-ST elevated myocardial infarction) (HCC) Acute myocardial infarction, subendocardial infarction, episode of care unspecified 02/07/2016 Coronary artery disease involving [place] coronary artery of [place] heart without angina pectoris 02/07/2016 Post PTCA Postsurgical percutaneous transluminal coronary angioplasty status 02/07/2016 MS (multiple sclerosis) ([facility]) Multiple sclerosis 02/07/2016 Dyslipidemia Other and unspecified hyperlipidemia 02/07/2016 Smoker Tobacco use disorder 02/07/2016 Essential hypertension Unspecified essential hypertension 02/07/2016 MS (multiple sclerosis) ([facility]) Multiple sclerosis 05/17/2016 Paresthesias Disturbance of skin sensation 05/17/2016 Myalgia Mylagia and myositis, unspecified 05/17/2016 Disorder of bone Disorder of bone and cartilage, unspecified 05/17/2016 MS (multiple sclerosis) ([facility]) Multiple sclerosis 05/24/2016 Paresthesias Disturbance of skin sensation 05/24/2016 Myalgia Mylagia and myositis, unspecified 05/24/2016 Disorder of bone Disorder of bone and cartilage, unspecified 05/24/2016 MS (multiple sclerosis) (HCC) Multiple sclerosis 05/24/2016 Paresthesias Disturbance of skin sensation 05/24/2016 MS (multiple sclerosis) (HCC) Multiple sclerosis 05/24/2016 Paresthesias Disturbance of skin sensation 05/24/2016 AMI inferior wall (HCC) Acute myocardial infarction of other inferior wall, episode of care unspecified 01/06/2017 Non-STEMI (non-ST elevated myocardial infarction) (HCC) Acute myocardial infarction, subendocardial infarction, episode of care unspecified 01/06/2017 Coronary artery disease involving [place] coronary artery of [place] heart without angina pectoris 01/06/2017 Post PTCA Postsurgical percutaneous transluminal coronary angioplasty status 01/06/2017 MS (multiple sclerosis) ([facility]) Multiple sclerosis 01/06/2017 Dyslipidemia Other and unspecified hyperlipidemia 01/06/2017 Smoker Tobacco use disorder 01/06/2017 Essential hypertension Unspecified essential hypertension 01/06/2017 AMI inferior wall (HCC) Acute myocardial infarction of other inferior wall, episode of care unspecified 02/05/2017 Non-STEMI (non-ST elevated myocardial infarction) (HCC) Acute myocardial infarction, subendocardial infarction, episode of care unspecified 02/05/2017 Essential hypertension Unspecified essential hypertension 02/05/2017 Coronary artery disease involving [place] and [place] coronary artery of [place] and [place] heart without angina pectoris 02/05/2017 MS (multiple sclerosis) ([facility]) Multiple sclerosis 02/05/2017 Dyslipidemia Other and unspecified hyperlipidemia 02/05/2017 Smoker Tobacco use disorder 02/05/2017 Post PTCA Postsurgical percutaneous transluminal coronary angioplasty status 02/05/2017 MS (multiple sclerosis) ([facility]) Multiple sclerosis 02/20/2017 Paresthesias Disturbance of skin sensation 02/20/2017 Vitamin D deficiency Unspecified vitamin D deficiency 02/20/2017 Elevated LFTs Other abnormal blood chemistry 02/20/2017 Spasticity Abnormal involuntary movements 02/20/2017 Vitamin D deficiency Unspecified vitamin D deficiency 02/21/2017 Elevated LFTs Other abnormal blood chemistry 02/21/2017 Flu vaccine need Need for prophylactic vaccination and inoculation against influenza 03/13/2017 Need for pneumococcal vaccination Need for prophylactic vaccination against streptococcus pneumoniae (pneumococcus) 03/13/2017 Screening for colon cancer Special screening for malignant neoplasms, colon 03/13/2017 Routine general medical examination at a health care facility 03/13/2017 Herpes zoster without complication 03/13/2017 Elevated LFTs Other abnormal blood chemistry 03/15/2017 Screening for colon cancer Special screening for malignant neoplasms, colon 03/19/2017 Elevated LFTs Other abnormal blood chemistry 03/24/2017 Paresthesias Disturbance of skin sensation 03/25/2017 Essential hypertension Unspecified essential hypertension 05/08/2017 MS (multiple sclerosis) (HCC) Multiple sclerosis 05/08/2017 Dyslipidemia Other and unspecified hyperlipidemia 05/08/2017 Smoker Tobacco use disorder 05/08/2017 Gastroesophageal reflux disease without esophagitis Esophageal reflux 05/08/2017 Muscle spasm Spasm of muscle 05/08/2017 Dermatitis Contact dermatitis and other eczema, due to unspecified cause 05/08/2017 Dyslipidemia Other and unspecified hyperlipidemia 06/27/2017 Blood in the stool Blood in stool 06/30/2017 MS (multiple sclerosis) (HCC) Multiple sclerosis 06/30/2017 Hematochezia Blood in stool 06/30/2017 Hyperlipidemia with target LDL less than 100 Other and unspecified hyperlipidemia 06/30/2017 Multiple sclerosis (HCC) Multiple sclerosis 07/04/2017 Screening for colon cancer Special screening for malignant neoplasms, colon 07/17/2017 Dyslipidemia Other and unspecified hyperlipidemia 07/28/2017 Screening for colon cancer Special screening for malignant neoplasms, colon 07/29/2017 Screening for colon cancer Special screening for malignant neoplasms, colon 07/29/2017 MS (multiple sclerosis) (HCC) Multiple sclerosis 08/01/2017 MS (multiple sclerosis) (HCC) Multiple sclerosis 08/06/2017 Non-STEMI (non-ST elevated myocardial infarction) ([facility]) Acute myocardial infarction, subendocardial infarction, episode of care unspecified 08/06/2017 AMI inferior wall [facility] [facility]) Acute myocardial infarction of other inferior wall, episode of care unspecified 08/06/2017 Essential hypertension Unspecified essential hypertension 08/06/2017 Dyslipidemia Other and unspecified hyperlipidemia 08/06/2017 Post PTCA Postsurgical percutaneous transluminal coronary angioplasty status 08/06/2017 Smoker Tobacco use disorder 08/06/2017 MS (multiple sclerosis) (HCC) Multiple sclerosis 10/28/2017 Essential hypertension Unspecified essential hypertension 10/28/2017 Dyslipidemia Other and unspecified hyperlipidemia 10/28/2017 Smoker Tobacco use disorder 10/28/2017 MS (multiple sclerosis) (HCC) Multiple sclerosis 11/03/2017 Nausea Nausea alone 11/03/2017 Essential hypertension Unspecified essential hypertension 11/03/2017 Multiple sclerosis (HCC) Multiple sclerosis 12/06/2017 MS (multiple sclerosis) (HCC) Multiple sclerosis 01/27/2018 Bilateral carpal tunnel syndrome Carpal tunnel syndrome 01/27/2018 Gastroesophageal reflux disease without esophagitis Esophageal reflux 01/29/2018 Essential hypertension Unspecified essential hypertension 01/29/2018 Dyslipidemia Other and unspecified hyperlipidemia 01/29/2018 Smoker Tobacco use disorder 01/29/2018 MS (multiple sclerosis) (HCC) Multiple sclerosis 01/29/2018 Muscle spasm Spasm of muscle 01/29/2018 Muscle spasm Spasm of muscle 03/31/2018 Essential hypertension Unspecified essential hypertension 03/31/2018 Dyslipidemia Other and unspecified hyperlipidemia 03/31/2018 Smoker Tobacco use disorder 03/31/2018 MS (multiple sclerosis) (HCC) Multiple sclerosis 04/30/2018 Multiple sclerosis (HCC) Multiple sclerosis 05/02/2018 MS (multiple sclerosis) ([facility]) Multiple sclerosis 05/04/2018 Essential hypertension Unspecified essential hypertension 05/04/2018 Elevated LFTs Other abnormal blood chemistry 05/04/2018 Annual physical exam Routine general medical examination at a health care facility 05/04/2018 Muscle spasm Spasm of muscle 06/03/2018 Essential hypertension Unspecified essential hypertension 06/03/2018 Dyslipidemia Other and unspecified hyperlipidemia 06/03/2018 Smoker Tobacco use disorder 06/03/2018 Annual physical exam Routine general medical examination at a health care facility 06/23/2018 Essential hypertension Unspecified essential hypertension 06/23/2018 Elevated LFTs Other abnormal blood chemistry 06/23/2018 Gastroesophageal reflux disease without esophagitis Esophageal reflux 07/27/2018 MS (multiple sclerosis) (HCC) Multiple sclerosis 07/27/2018 Essential hypertension Unspecified essential hypertension 07/27/2018 Dyslipidemia Other and unspecified hyperlipidemia 07/27/2018 Gastroesophageal reflux disease with esophagitis 07/27/2018 Muscle spasm Spasm of muscle 09/08/2018 MS (multiple sclerosis) (HCC) Multiple sclerosis 09/08/2018 Bilateral carpal tunnel syndrome Carpal tunnel syndrome 09/08/2018 Multiple sclerosis (HCC) Multiple sclerosis 09/19/2018 MS (multiple sclerosis) (HCC) Multiple sclerosis 10/22/2018 Smoker Tobacco use disorder 10/22/2018 MS (multiple sclerosis) (HCC) Multiple sclerosis 01/21/2019 Dyslipidemia Other and unspecified hyperlipidemia 01/21/2019 Muscle spasm Spasm of muscle 02/02/2019 Essential hypertension Unspecified essential hypertension 02/11/2019 Dyslipidemia Other and unspecified hyperlipidemia 02/11/2019 Smoker Tobacco use disorder 02/11/2019 Essential hypertension Unspecified essential hypertension 02/11/2019 Dyslipidemia Other and unspecified hyperlipidemia 02/11/2019 Smoker Tobacco use disorder 02/11/2019 Essential hypertension Unspecified essential hypertension 03/03/2019 Dyslipidemia Other and unspecified hyperlipidemia 03/03/2019 Smoker Tobacco use disorder 03/03/2019 Essential hypertension Unspecified essential hypertension 03/09/2019 Dyslipidemia Other and unspecified hyperlipidemia 03/09/2019 Smoker Tobacco use disorder 03/09/2019 Essential hypertension Unspecified essential hypertension 04/06/2019 Dyslipidemia Other and unspecified hyperlipidemia 04/06/2019 Smoker Tobacco use disorder 04/06/2019 High risk medications (not anticoagulants) long-term use Encounter for long-term (current) use of other medications 04/15/2019 MS (multiple sclerosis) (HCC) Multiple sclerosis 04/15/2019 High risk medications (not anticoagulants) long-term use Encounter for long-term (current) use of other medications 04/15/2019 Gastroesophageal reflux disease without esophagitis Esophageal reflux 04/15/2019 Essential hypertension Unspecified essential hypertension 04/15/2019 Dyslipidemia Other and unspecified hyperlipidemia 04/15/2019 Dyslipidemia Other and unspecified hyperlipidemia 04/16/2019 Gastroesophageal reflux disease without esophagitis Esophageal reflux 05/18/2019 Essential hypertension Unspecified essential hypertension 06/09/2019 Dyslipidemia Other and unspecified hyperlipidemia 06/09/2019 Smoker Tobacco use disorder 06/09/2019 AMI inferior wall (HCC) Acute myocardial infarction of other inferior wall, episode of care unspecified 06/09/2019 Non-STEMI (non-ST elevated myocardial infarction) (HCC) Acute myocardial infarction, subendocardial infarction, episode of care unspecified 06/09/2019 Coronary artery disease involving ass[place]ibo[place] sioux coronary artery of assinibo[place] and sioux heart without angina pectoris 06/09/2019 Post PTCA Postsurgical percutaneous transluminal coronary angioplasty status 06/09/2019 MS (multiple sclerosis) (HCC) Multiple sclerosis 06/09/2019 Muscle spasm Spasm of muscle 07/02/2019 Coronary artery disease involving ass[place] and sioux coronary artery of ass[place] and sioux heart without angina pectoris 07/14/2019 AMI inferior wall (HCC) Acute myocardial infarction of other inferior wall, episode of care unspecified 07/14/2019 HTN (hypertension) Unspecified essential hypertension 07/14/2019 Post PTCA Postsurgical percutaneous transluminal coronary angioplasty status 07/14/2019 Non-STEMI (non-ST elevated myocardial infarction) ([facility]) Acute myocardial infarction, subendocardial infarction, episode of care unspecified 07/14/2019 Dyslipidemia Other and unspecified hyperlipidemia 07/14/2019 Smoker Tobacco use disorder 07/14/2019 MS (multiple sclerosis) ([facility]) Multiple sclerosis 07/14/2019 Multiple sclerosis ([facility]) Multiple sclerosis 07/14/2019 Essential hypertension Unspecified essential hypertension 07/14/2019 Gastroesophageal reflux disease without esophagitis Esophageal reflux 07/14/2019 Muscle spasm Spasm of muscle 07/14/2019 Nausea Nausea alone 08/11/2019 MS (multiple sclerosis) ([facility]) Multiple sclerosis 08/11/2019 MS (multiple sclerosis) ([facility]) Multiple sclerosis 08/11/2019 MS (multiple sclerosis) ([facility]) Multiple sclerosis 08/13/2019 MS (multiple sclerosis) ([facility]) Multiple sclerosis 09/08/2019 Nausea Nausea alone 09/08/2019 Multiple sclerosis ([facility]) Multiple sclerosis 09/12/2019 MS (multiple sclerosis) ([facility]) Multiple sclerosis 10/11/2019 MS (multiple sclerosis) ([facility]) Multiple sclerosis 11/08/2019 Nausea Nausea alone 11/08/2019 Muscle spasm Spasm of muscle 11/10/2019 Nausea Nausea alone 11/11/2019 MS (multiple sclerosis) ([facility]) Multiple sclerosis 11/11/2019 Gastroesophageal reflux disease without esophagitis Esophageal reflux 11/11/2019 Annual physical exam Routine general medical examination at a health care facility 11/11/2019 MS (multiple sclerosis) ([facility]) Multiple sclerosis 12/20/2019 MS (multiple sclerosis) ([facility]) Multiple sclerosis 01/20/2020 Multiple sclerosis ([facility]) Multiple sclerosis 02/18/2020 Essential hypertension Unspecified essential hypertension 04/19/2020 Dyslipidemia Other and unspecified hyperlipidemia 04/19/2020 Smoker Tobacco use disorder 04/19/2020 Multiple sclerosis (HCC) Multiple sclerosis 07/14/2020 MS (multiple sclerosis) ([facility]) Multiple sclerosis 09/02/2022 Muscle spasticity Spasm of muscle 09/02/2022 Vitamin D deficiency Unspecified vitamin D deficiency 09/02/2022 Hypertension, unspecified type 09/02/2022 Multiple sclerosis ([facility]) Multiple sclerosis 09/02/2022 MS (multiple sclerosis) ([facility]) Multiple sclerosis 09/20/2022 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 11/06/2022 Muscle spasticity Spasm of muscle 11/12/2022 MS (multiple sclerosis) (HCC) Multiple sclerosis 04/01/2023 Muscle spasticity Spasm of muscle 04/01/2023 Vitamin D deficiency Unspecified vitamin D deficiency 04/01/2023 Hypertension, unspecified type 04/01/2023 MS (multiple sclerosis) (HCC) Multiple sclerosis 04/18/2023 Muscle spasticity Spasm of muscle 06/09/2023 Muscle spasticity Spasm of muscle 06/10/2023 Muscle spasticity Spasm of muscle 10/25/2023 Muscle spasticity Spasm of muscle 12/18/2023 Multiple sclerosis (HCC) Multiple sclerosis 12/26/2023 Muscle spasticity Spasm of muscle 12/26/2023 Vitamin D deficiency Unspecified vitamin D deficiency 12/26/2023 Hypertension, unspecified type 12/26/2023 Cognitive changes Other signs and symptoms involving cognition 12/26/2023 Worries Other ill-defined conditions 12/26/2023 MS (multiple sclerosis) (HCC) Multiple sclerosis 04/04/2024 Muscle spasticity Spasm of muscle 06/09/2024 MS (multiple sclerosis) (HCC) Multiple sclerosis 07/02/2024 Cognitive changes Other signs and symptoms involving cognition 07/02/2024 Muscle spasticity Spasm of muscle 07/02/2024 Vitamin D deficiency Unspecified vitamin D deficiency 07/02/2024 Hypertension, unspecified type 07/02/2024 Other abnormal findings on diagnostic imaging of central nervous system 07/02/2024 Leukopenia, unspecified type 07/09/2024 Other decreased white blood cell (WBC) count 08/09/2024 Other iron deficiency anemias 08/09/2024 Iron deficiency anemia due to chronic blood loss Iron deficiency anemia secondary to blood loss (chronic) 08/09/2024 Encounter for screening for human immunodeficiency virus (HIV) Special screening examination for other specified viral diseases 08/09/2024 Other decreased white blood cell (WBC) count 08/09/2024 Other iron deficiency anemias 08/09/2024 Iron deficiency anemia due to chronic blood loss Iron deficiency anemia secondary to blood loss (chronic) 08/09/2024 Encounter for screening for human immunodeficiency virus (HIV) Special screening examination for other specified viral diseases 08/09/2024 Thrombocytopenia Thrombocytopenia, unspecified 08/09/2024 Smoker Tobacco use disorder 08/09/2024 Multiple sclerosis (HCC) Multiple sclerosis 09/15/2024 Cognitive changes Other signs and symptoms involving cognition 09/15/2024 Pancytopenia (HCC) Other pancytopenia 10/11/2024 Iron deficiency Other disorders of iron metabolism 10/11/2024 Pancytopenia (HCC) Other pancytopenia 10/11/2024 Iron deficiency Other disorders of iron metabolism 10/11/2024 Non-STEMI (non-ST elevated myocardial infarction) (HCC) Acute myocardial infarction, subendocardial infarction, episode of care unspecified 05/16/2013 Smoker Tobacco use disorder 05/16/2013 Post PTCA Postsurgical percutaneous transluminal coronary angioplasty status 05/16/2013 HTN (hypertension) Unspecified essential hypertension 05/16/2013 Dyslipidemia Other and unspecified hyperlipidemia 05/16/2013 CAD (coronary artery disease) Coronary atherosclerosis of unspecified type of vessel, ass[place] and sioux or graft 05/16/2013 CAD (coronary artery disease) Coronary atherosclerosis of unspecified type of vessel, [place] sioux or graft 10/06/2014 Dyslipidemia Other and unspecified hyperlipidemia 10/06/2014 HTN (hypertension) Unspecified essential hypertension 10/06/2014 MS (multiple sclerosis) (HCC) Multiple sclerosis 10/06/2014 Smoker Tobacco use disorder 10/06/2014 Altered mental status 10/06/2014 Goals Goal Patient Goal Type Associated Problems Recent Progress Patient-Stated? Author Blood Pressure < 140/90 Blood Pressure 122/67(2024 2:20 PM EDT) Shakeel Montalvo MD Maintain a healthy diet, exercise regularly and maintain an ideal body weight General Shakeel Montalvo MD Stay Tobacco Free Lifestyle Shakeel Montalvo MD
--- OUTSIDE RECORDS SUMMARY | 2024-11-17 12:43 | XMS_ITS | Encounter Summary ---
Author Organization [place] [address] Care Team Providers Care Personal Care Aide Name Role Phone Unavailable Primary Care Provider Unavailabl e Reason for Visit * Reason Onset Date Comments Anemia 08/17/2024 Encounter Details Date Type Department Care Team (Late st Contact Info) Description 08/17/2024 Telephone [facility] [address] [place] [address] [address] [place] [address] Wolfgang Thomas MD PHD [address] [place] [address] Anemia Social History Tobacco Use Types Packs/Day Years [...] Assessment Author No 05/08/2017 8:36 AM Carol Csaey RMA * Is the person blind or [...] Carol Casey RMA documented in this encounter Miscellaneous Notes * Telephone Encounter - Edyta White - 08/17/2024 12:35 PM EDT pt s/w [place] 10/05 * Telephone Encounter - Shelly Kothari LPN - 08/17/2024 12:17 PM EDT Hgb 11 okay to schedule FA * Telephone Encounter - Allie Munoz - 08/17/2024 11:30 AM EDT Referral recv'd for anemia. When / Who to schedule? FD - Pt has not called. documented in this encounter Plan of Treatment Upcoming Encounters Date Type Department Care Team (Late st Contact Info) Description 01/13/2025 12:20 PM EDT Office Visit [facility] Neu[facility] [address] [place] [phone] David Chu MD [address] [address] [place] [address] 04/11/2025 1:15 PM EST Appointment [facility] [address] [place] [id number] 04/11/2025 1:30 PM EST Appointment [facility] [address] [place] [address] Rina Mathis, DIRECTOR OF CARDIAC REHABILITATION [address] [place] [address] [address] [place], [place] [id number] documented as of this encounter Goals Goal Patient Goal Type Associated Problems Recent Progress Patient-Stated? Author Blood Pressure < 140/90 Blood Pressure 122/67(2024 2:20 PM EDT) No Shakeel Edgar MD Maintain a healthy diet, exercise regularly and maintain an ideal body weight General No Shakeel Edgar MD Stay Tobacco Free Lifestyle No Shakeel Edgar MD documented as of this encounter Visit Diagnoses Not on filedocumented in this encounter
--- OUTSIDE RECORDS SUMMARY | 2024-11-17 12:43 | XMS_ITS | Encounter Summary ---
Author Organization [facility] [place] [address] Care Team Providers Care Director Of Reimbursement Name Role Phone Unavailable Primary Care Provider Unavailabl e Encounter Details Date Type Department Care Team (Latest Contact Info) Description 10/08/2024 Travel Social History Tobacco Use Types Packs/Day Years [...] of Assessment Author No 05/08/2017 8:36 AM MELISSA Jackson RANDALL Medina documented as of this encounter Mental Status * Because of a physical, mental or emotional condition, does this person have serious difficulty concentrating, remembering or making decisions? Answer Entry Date Author No 05/08/2017 8:36 AM Carol Casey RMA documented in this encounter Plan of Treatment Upcoming Encounters Date Type Department Care Team (Late st Contact Info) Description 01/13/2025 12:20 PM EDT Office Visit [facility] Neurology [facility] [address] [place] [address] David Chu MD [address] [place] [address] 04/11/2025 1:15 PM EST Appointment [facility] [address] [place] [id number] 04/11/2025 1:30 PM EST Appointment [facility] [address] [place] [address] Rina Mathis, [employer] [address] [place] [address] [address] [place] [address] documented as of this encounter Goals Goal [...]
[2024-11-17 13:09] LABS: Hematocrit 44.3 % (42.0-52.0); Hemoglobin 15.4 g/dL (14.1-18.0); Immature Granulocytes % 0.3 %; Mean Corpuscular HGB Conc 34.8 g/dL (31.8-35.4); Mean Corpuscular Hemoglobin 29.6 pg (27.0-31.2); Mean Corpuscular Volume 85.0 fl (80-94); Nucleated Red Blood Cells % 0 %; Platelet Count 113 K/mm3 (142-424); Red Blood Count 5.21 M/mm3 (4.60-6.20); Red Cell Distribution Width-SD 49.1 fL; White Blood Count 3.3 K/mm3 (4.8-10.8)
[2024-11-17 13:10] LABS: Ammonia 67 umol/L (9-30)
[2024-11-17 13:13] LABS: INR 1.17 (0.9-1.1); Prothrombin Time 12.8 seconds (10.1-12.5)
[2024-11-17 13:44] LABS: Albumin Level 4.1 g/dl (3.5-5.0); Chloride 103 mmol/L (98-107); Potassium 4.1 mmoL/L (3.5-5.1); Sodium 136 mmol/L (136-145)
[2024-11-17 13:46] LABS: Blood Urea Nitrogen 10 mg/dl (9-20); Creatinine,Serum 0.80 mg/dl (0.66-1.25); Estimated Glomerular Filt Rate 98 ml/min (>60); GFR (African American) 119 ML/MIN (>60)
[2024-11-17 13:47] LABS: Alanine Aminotransferase 42 U/L (12-78); Albumin/Globulin Ratio 1.2 (1.1-1.8); Alkaline Phosphatase 131 U/L (38-126); Anion Gap 7.1 mEq/L (5-15); Aspartate Amino Transferase 52 U/L (17-59); Bilirubin,Total 1.2 mg/dl (0.2-1.3); Calcium 9.7 mg/dl (8.4-10.2); Carbon Dioxide 30 mmol/L (22.0-30.0); Globulin 3.4 g/dL (1.3-3.2); Glucose 130 mg/dl (74-100); Iron 163 ug/dL (49-181); Total Protein,Serum 7.5 g/dl (6.3-8.2)
[2024-11-17 13:56] LABS: Total Iron Binding Capacity 327 ug/dL (261-462)
[2024-11-17 14:22] LABS: Ferritin 31.9 ng/ml (17.9-464)
== END 2024-11-17 23:59 | disposition home or self-care (01) ==
LOC: LAB 12:40
PROVIDERS: PCP Family Medicine; Visit Provider Nurse Practitioner Family
DX: B18.1 Chronic viral hepatitis B without delta-agent (principal); K74.60 Unspecified cirrhosis of liver
CPT/HCPCS: 36415; 80053; 82105; 82140; 82728; 83540; 83550; 85025; 85610; 86707; 87350; 87517